=== PATIENT | female | born 1940 | race Caucasian/White ===

== ENCOUNTER 2016-06-13 09:12 | Emergency (ER) | payer MEDICARE, BC ==
[2016-06-13 09:51] VITALS: BP 131/67
--- NOTE | 2016-06-13 10:04 | UC ---
Complaint Female HPI - HPI Summary HPI Summary: UTI symptoms for 3d. Dysuria, urgency, frequency. No fever or vomiting, no kidney pain. Getting a lot of UTIs in past years, 2 or 3 a year. - History Of Current Complaint Chief Complaint: UCGU Stated Complaint: URINARY COMPLAINT Time Seen by Provider: 06/13/16 09:50 Hx Obtained From: Patient Onset/Duration: Gradual Onset, Lasting Days - 3 Timing: Constant Severity Initially: Mild Severity Currently: Mild Character: Dull, Cramping Associated Signs And Symptoms: Positive: Negative. Negative: Fever, Back Pain, Vaginal Bleeding/Discharge, Vaginal Discharge, Nausea, Vomiting(# Of Episodes =) , Genital Swelling, Genital Blisters - Risk Factors Ovarian Torsion Risk Factor: Negative - Allergies/Home Medications Allergies/Adverse Reactions: Allergies Allergy/AdvReac Type Severity Reaction Status Date / Time Morphine AdvReac Dizziness Verified 06/13/16 09:37 and Nausea environmental Allergy Congestion Uncoded 06/13/16 09:37 Home Medications: Home Medications Ibuprofen TAB* [Motrin TAB* 600 MG] 600 mg PO Q6H PRN 06/13/16 [History Confirmed 06/13/16] PMH/Surg Hx/FS Hx/Imm Hx Cardiovascular History Of: Reports: Cardiac Disorders - A. 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", Hypertension - Surgical History Surgical History: Yes Surgery Procedure, Year, and Place: Right Shoulder Partial Replacement, 05/29/16 , [place]; Right Rotator Cuff, 01/10/16, [place]; Right Ankle Infections s/p Fusion, 2014, [place]; Left Breast Biopsy, 2013, [place]; Left Carpal Tunnel, ~2011, [place]; Left Bunionectomy with other Metatarsal Involvement; Bilateral TKA: C-Sections; T&A - Family History Known Family History: Positive: Cardiac Disease, Other - OA - Social History Occupation: Retired Lives: With Family Alcohol Use: None Substance Use Type: None Smoking Status (MU): Never Smoked Tobacco - Immunization History Most Recent Influenza Vaccination: "I have never had a flu shot." Most Recent Tetanus Shot: ~2012 Most Recent Pneumonia Vaccination: Fall 2014 Review of Systems Constitutional: Negative Skin: Negative Eyes: Negative ENT: Negative Respiratory: Negative Cardiovascular: Negative Gastrointestinal: Negative Genitourinary: Dysuria, Frequency, Urgency Motor: Negative Neurovascular: Negative Musculoskeletal: Negative Neurological: Negative Psychological: Negative All Other Systems Reviewed And Are Negative: Yes Physical Exam Triage Information Reviewed: Yes Appearance: Well-Appearing, No Pain Distress, Well-Nourished Vital Signs: Initial Vital Signs Temp 98.7 F 06/13/16 09:35 Pulse 90 06/13/16 09:35 Resp 16 06/13/16 09:35 BP 131/67 06/13/16 09:35 Pulse Ox 99 06/13/16 09:35 Vital Signs Reviewed: Yes Eye Exam: Normal Neck exam: Normal Respiratory Exam: Normal Cardiovascular Exam: Normal Abdomen Description: Positive: Other: - suprapubic tenderness Musculoskeletal Exam: Normal Neurological Exam: Normal Psychological Exam: Normal Skin Exam: Normal Diagnostics - Laboratory Diagnostic Studies Completed/Ordered: U/A dip shows markers for infection Complaint Female Dx - Differential Dx/Diagnosis Provider Diagnoses: UTI Discharge - Discharge Plan Condition: Stable Disposition: HOME Prescriptions: Cephalexin CAP* [Keflex CAP*] 500 mg PO TID #21 cap Patient Education Materials: Urinary Tract Infection in Women (ED) Referrals: Nick Morel MD [Primary Care Provider] - Additional Instructions: Ask your BEHAVIORAL HEALTH AIDE or primary care doctor about the possibility of topical estrogen cream around the urethra as a way to avoid urinary tract infections. The culture results will be available in 2-3 days
== END 2016-06-13 10:40 | disposition home or self-care (01) ==
LOC: UCCORT 09:12
DX: N39.0 Urinary tract infection, site not specified (principal); Z87.440 Personal history of urinary (tract) infections; Z88.5 Allergy status to narcotic agent
CPT/HCPCS: 87077; 87086; 87186; 99212; G0463

== ENCOUNTER 2018-01-07 09:47 | Emergency (ER) | payer MEDICARE, BC ==
--- OUTSIDE RECORDS SUMMARY | 2018-01-07 10:01 | XMS REPORT ---
:1940 External Reference #:[id number] Author Organization Nick Beck M.D. 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 Active Onset: 01/05/2015 Infection of foot Nick Beck M.D. Active Onset: 05/10/2016 Hyperlipidemia Nick Beck M.D. Active Family History Date Family Member(s) Problem(s) Comments Father Coronary Thrombosis age 57 1964 Mother Alzheimer's Disease at 1993 First Brother due to UTI () - Subsequent Bladder Cancer age 74 Second Brother due to Suicide () - age 1936 Social History Type Date Description Comments Marital Status Legal Status: Lives With Alone Work Status Retired 2011 ETOH Use Never used alcohol Smoking 02/20/2017 Patient has never smoked Recreational Drug Use Never Used Drugs Daily Caffeine Does Not Consume Caffeine Allergies, Adverse Reactions, Alerts Date Description Reaction Status Severity Comments 05/10/2016 Morphine active nausea and "spacey" Medications Medication Date Status Form Strength Qnty SIG Indications Ordering Provider Xarelto 05/10 Active Tablets 20mg 30tab 1 by mouth I48.2 Nick s every day Castellan os MSteve Atorvastatin 05/10 Active Tablets 10mg 30tab 1 by mouth E78.5 Nick s every day Castellan os, MAditiD. Azelastine HCL 05/10 Active Solution 0.05% (Ophthalmic) Castellan osBubba Amlodipine Besylate 01/05 Active Tablets 2.5mg 90tab 1 by mouth s every day Castellan osBubba Calcium 600 + D 01/05 Active Tablets 600-200mg 270ta 1 daily -Unit bs Castellajoya osBubba Hydrochlorothiazide 01/05 Active Tablets 12.5mg 30tab 1 by mouth s every day Castellan osBubba Multi Vitamin Daily 01/05 Active Tablets 1 by mouth every day Castellan osBubba Ramipril 01/05 Active Capsules 5mg 60cap take 1 s capsule by Castellan mouth once os, M.D. a day Cranberry Extract 01/05 Active Tablets 250mg 1 po qd Castellan osBubba Levocetirizine 12/08 Active Tablets 5mg 90tab Take 1 Dihydrochlor s Tablet By Castellan Mouth os, M.DAditi Every Evening Ibuprofen 00/00 Active Tablets 600mg Camila [place] /0000 Enoxaparin Sodium 02/20 Hx Solution 100mg/ml 2ml 1 I48.2 injection Castellan - daily os, M.D. 03/13 starting days before surgery Optivar 01/03 Hx Solution 0.05% 6unit One Drop s Twice A Castellan - Day os, M.D. 05/10 Azelastine HCL 01/05 Hx Solution 0.05% 1 gtt/ (Ophthalmic) ocularly Castellan - ou bid os, M.D. 01/03 Gabapentin 01/05 Hx Capsules 300mg 90cap 1 by mouth M25.571 s one time a Castellan - day os, M.DAditi 05/10 Magnesium Oxide 01/05 Hx Tablets 400(241.3 60tab take one Mg) mg s tablet by Castellan - mouth os, M.DAditi 05/10 twice day Metronidazole 01/05 Hx Tablets 500mg 30tab 1 tab by s mouth Castellan - three os, M.DAditi 03/09 times a day [place] 01/05 Hx Tablets 5-325mg one Q 6 hrs prn Castellan - os, M.DAditi 03/09 Simvastatin 01/05 Hx Tablets 40mg 30tab 1 by mouth s every day Castellan - os, M.DAditi 05/10 Warfarin Sodium 01/05 Hx Tablets 5mg 30tab 1 by mouth s every day Castellan - as os, M.DAditi 05/10 per lab values Ventolin HFA 01/05 Hx Aerosol 108(90Bas 1unit 2 puffs e) s every 4 Castellan - mcg/Act hours as os, Bubba 05/10 Doxycycline 100 MGM 01/05 Hx Nick IV bid Castellan - osBubba 03/09 Cipro 750 MGM PO 01/05 Hx 1 po bid Nick bid Castellan - osBubba 03/09 Vesicare 10/19 Hx Tablets 5mg 60tab Take 1 s Tablet By Castellan - Mouth os, M.DAditi 03/13 Vital Signs Date Vital Result Comment 12/09/2017 Weight 164.00 lb BP Systolic 104 mmHg BP Diastolic 62 mmHg 09/11/2017 Weight 164.00 lb BP Systolic 120 mmHg BP Diastolic 62 mmHg 06/13/2017 Weight 160.00 lb BP Systolic 120 mmHg BP Diastolic 70 mmHg 03/13/2017 Weight 161.00 lb BP Systolic 124 mmHg BP Diastolic 72 mmHg 02/20/2017 Weight 165.00 lb 05/10/2016 Weight 159.50 lb BP Systolic 126 mmHg BP Diastolic 60 mmHg Height 62.75 inches 5'2.75" Heart Rate 84 /min Respiratory Rate 16 /min BMI (Body Mass Index) 28.5 kg/m2 02/09/2016 Weight 156.00 lb BP Systolic 130 mmHg BP Diastolic 70 mmHg 06/09/2015 Weight 152.50 lb BP Systolic 126 mmHg BP Diastolic 70 mmHg 04/04/2015 Weight 151.00 lb BP Systolic 110 mmHg BP Diastolic 70 mmHg 03/09/2015 BP Systolic 116 mmHg BP Diastolic 62 mmHg 03/04/2015 BP Systolic 100 mmHg BP Diastolic 60 mmHg 02/23/2015 BP Systolic 130 mmHg BP Diastolic 70 mmHg 08/11/2014 Weight 168.00 lb BP Systolic 120 mmHg BP Diastolic 70 mmHg Height 68 inches 5'8" Heart Rate 64 /min Body Temperature 98.8 F Respiratory Rate 12 /min BMI (Body Mass Index) 25.5 kg/m2 Results Test Date Test Result H/L Range Note Routine Culture W/ Gram 03/05/2017 Gram Stain RARE WHITE BLOOD <SEE 1, 2 Stain NOTE> Gram Stain NO ORGANISMS SEE <SEE NOTE> 1, 3 Aerobic Culture NO GROWTH: FINAL <SEE NOTE> 1, 4 Xray 05/16/2016 Chest Xray PA and Lat <pending> Comprehensive Metabolic Panel 05/11/2016 Glucose 89 mg/dL 74-106 5 BUN 16 mg/dL 7-18 5 Creatinine 1.0 mg/dL 0.6-1.3 5 Glom Filtration Rate, Estimate 58 mL/min >60 5 If >60 mL/min >60 5, 6 BUN/Creat 16.0 ratio 5 Sodium 141 mmol/L 136-145 5 Potassium 4.1 mmol/L 3.5-5.1 5 Chloride 105 mmol/L 98-107 5 Carbon Dioxide 31 mmol/L 21-32 5 Anion Gap 5 mEq/L Low 8-16 5 Calcium 8.9 mg/dL 8.5-10.1 5 Total Protein 6.7 g/dL 6.4-8.2 5 Albumin 3.3 g/dL Low 3.4-5.0 5 Globulin 3.4 g/dL 1.9-4.3 5 Alb/Glob 1.0 ratio 5 Bilirubin,Total 0.4 mg/dL 0.2-1.0 5 Sgot/Ast 21 U/L 15-37 5 SGPT/Alt 19 U/L 12-78 5 Alkaline Phosphatase 97 U/L 45-117 5 LDL Cholesterol Profile 05/11/2016 Cholesterol 177 mg/dL <200 5, 7 Triglycerides 92 mg/dL <150 5, 8 HDL Cholesterol 78 mg/dL >40 5, 9 LDL-Cholesterol 81 mg/dL < 100 5, 10 CBS W/Automated Diff 05/11/2016 White Blood Count 8.1 K/uL 3.1-10.7 5 Red Blood Count 3.96 M/uL 3.90-5.40 5 Hemoglobin 12.0 gm/dL 11.6-15.8 5 Hematocrit 36.8 % 36.0-46.1 5 Mean Cell Volume 92.9 fl 80.9-99.0 5 Mean Corpuscular HGB 30.3 pg 25.9-32.7 5 Mean Corpuscular HGB Conc 32.6 g/dL 30.8-34.3 5 Platelet Count 333 K/uL 155-360 5 Red Cell Distri Width SD 45.3 fl 3-47 5 Red Cell Distri Width %CV 13.7 % 11.7-14.4 5 Mean Platelet Volume 10.5 fL 8.9-12.4 5 Neut% 70.7 % 40.4-72.8 5 Lymph % 14.2 % Low 17.0-46.1 5 [place] % 8.3 % 4.3-13.2 5 Eo% 6.4 % 0.0-6.6 5 Bas% 0.4 % 0.0-1.1 5 Neut# 5.73 K/uL 1.8-7.0 5 Lymph # 1.15 K/uL Low 1.8-7.0 5 [place] # 0.67 K/uL 0.3-0.9 5 Eos # 0.52 K/uL High 0.0-0.5 5 Baso # 0.03 K/uL 0.0-0.1 5 Protime 03/02/2015 Protime 25.5 seconds High 12.0-14.4 Inr 2.3 High 0.9-1.1 11 Protime 02/28/2015 Protime 23.1 seconds High 12.0-14.4 Inr 2.0 High 0.9-1.1 12 Laboratory test finding 02/28/2015 Sedimentation Rate 26 mm/hr 0-30 Comprehensive Metabolic Panel 02/28/2015 Glucose 92 mg/dL 74-106 BUN 13 mg/dL 7-18 Creatinine 1.0 mg/dL 0.6-1.3 Glom Filtration Rate, Estimate 58 mL/min >60 If >60 mL/min >60 13 BUN/Creat 13.0 ratio Sodium 137 mmol/L 136-145 Potassium 3.6 mmol/L 3.5-5.1 Chloride 101 mmol/L 98-107 Carbon Dioxide 31 mmol/L 21-32 Anion Gap 5 mEq/L Low 8-16 Calcium 9.3 mg/dL 8.5-10.1 Total Protein 6.9 g/dL 6.4-8.2 Albumin 3.3 g/dL Low 3.4-5.0 Globulin 3.6 g/dL 1.9-4.3 Alb/Glob 0.9 ratio Bilirubin,Total 0.3 mg/dL 0.2-1.0 Sgot/Ast 22 U/L 15-37 SGPT/Alt 26 U/L 12-78 Alkaline Phosphatase 94 U/L 45-117 Laboratory test finding 02/28/2015 C-Reactive Protein,Quant < 2.9 mg/L < 3.0 CBS W/Automated Diff 02/28/2015 White Blood Count 6.7 K/uL 3.1-10.7 Red Blood Count 3.94 M/uL 3.90-5.40 Hemoglobin 12.4 gm/dL 11.6-15.8 Hematocrit 37.6 % 36.0-46.1 Mean Cell Volume 95.4 fl 80.9-99.0 Mean Corpuscular HGB 31.5 pg 25.9-32.7 Mean Corpuscular HGB Conc 33.0 g/dL 30.8-34.3 Platelet Count 470 K/uL High 155-360 Red Cell Distri Width SD 51.8 fl High 3-47 Red Cell Distri Width %CV 15.3 % High 11.7-14.4 Mean Platelet Volume 11.2 fL 8.9-12.4 Neut% 68.7 % 40.4-72.8 Lymph % 17.7 % 17.0-46.1 [place] % 8.5 % 4.3-13.2 Eo% 4.8 % 0.0-6.6 Bas% 0.3 % 0.0-1.1 Neut# 4.62 K/uL 1.0-7.0 Lymph # 1.19 K/uL Low 1.8-7.0 [place] # 0.57 K/uL 0.3-0.9 Eos # 0.32 K/uL 0.0-0.5 Baso # 0.02 K/uL 0.0-0.1 Protime 02/25/2015 Protime 29.2 seconds High 12.0-14.4 Inr 2.7 High 0.9-1.1 14 Protime 02/24/2015 Protime 35.7 seconds High 12.0-14.4 Inr 3.5 High 0.9-1.1 15 Protime 02/23/2015 Protime 41.0 seconds High 12.0-14.4 Inr 4.2 High 0.9-1.1 16 Comprehensive Metabolic Panel 02/21/2015 Glucose 85 mg/dL 74-106 BUN 13 mg/dL 7-18 Creatinine 1.1 mg/dL 0.6-1.3 Glom Filtration Rate, Estimate 52 mL/min >60 If >60 mL/min >60 17 BUN/Creat 11.8 ratio Sodium 138 mmol/L 136-145 Potassium 3.8 mmol/L 3.5-5.1 Chloride 101 mmol/L 98-107 Carbon Dioxide 31 mmol/L 21-32 Anion Gap 6 mEq/L Low 8-16 Calcium 9.1 mg/dL 8.5-10.1 Total Protein 6.9 g/dL 6.4-8.2 Albumin 3.4 g/dL 3.4-5.0 Globulin 3.5 g/dL 1.9-4.3 Alb/Glob 1.0 ratio Bilirubin,Total 0.2 mg/dL 0.2-1.0 Sgot/Ast 25 U/L 15-37 SGPT/Alt 24 U/L 12-78 Alkaline Phosphatase 99 U/L 45-117 Laboratory test finding 02/21/2015 C-Reactive Protein,Quant 7.2 mg/L < 3.0 Sedimentation Rate 45 mm/hr High 0-30 Protime 02/21/2015 Protime 55.6 seconds High 12.0-14.4 Inr 6.3 High 0.9-1.1 18 Protime 02/17/2015 Protime 31.4 seconds High 12.0-14.4 Inr 3.0 High 0.9-1.1 19 Protime 02/11/2015 Protime 14.7 seconds 12.1-14.9 Inr 1.1 0.9-1.1 20 Comprehensive Metabolic Panel 01/10/2015 Glucose 128 mg/dL High 74-106 BUN 16 mg/dL 7-18 Creatinine 1.1 mg/dL 0.6-1.3 Glom Filtration Rate, Estimate 52 mL/min >60 If >60 mL/min >60 21 BUN/Creat 14.5 ratio Sodium 135 mmol/L Low 136-145 Potassium 3.8 mmol/L 3.5-5.1 Chloride 100 mmol/L 98-107 Carbon Dioxide 27 mmol/L 21-32 Anion Gap 8 mEq/L 8-16 Calcium 9.3 mg/dL 8.5-10.1 Total Protein 6.2 g/dL Low 6.4-8.2 Albumin 2.9 g/dL Low 3.4-5.0 Globulin 3.3 g/dL 1.9-4.3 Alb/Glob 0.9 ratio Bilirubin,Total 0.5 mg/dL 0.2-1.0 Sgot/Ast 17 U/L 15-37 SGPT/Alt 21 U/L 12-78 Alkaline Phosphatase 80 U/L 45-117 Laboratory test finding 01/10/2015 C-Reactive Protein,Quant 3.4 mg/L < 3.0 22 CBS W/Automated Diff 01/10/2015 White Blood Count 10.2 K/uL 3.1-10.7 Red Blood Count 4.15 M/uL 3.90-5.40 Hemoglobin 12.4 gm/dL 11.6-15.8 Hematocrit 37.9 % 36.0-46.1 Mean Cell Volume 91.3 fl 80.9-99.0 Mean Corpuscular HGB 29.9 pg 25.9-32.7 Mean Corpuscular HGB Conc 32.7 g/dL 30.8-34.3 Platelet Count 579 K/uL High 155-360 Red Cell Distri Width SD 56.6 fl High 3-47 Red Cell Distri Width %CV 17.3 % High 11.7-14.4 Mean Platelet Volume 10.7 fL 8.9-12.4 Neut% 80.9 % High 40.4-72.8 Lymph % 7.9 % Low 17.0-46.1 [place] % 7.9 % 4.3-13.2 Eo% 3.0 % 0.0-6.6 Bas% 0.3 % 0.0-1.1 Neut# 8.24 K/uL High 1.0-7.0 Lymph # 0.80 K/uL Low 1.8-7.0 [place] # 0.81 K/uL 0.3-0.9 Eos # 0.31 K/uL 0.0-0.5 Baso # 0.03 K/uL 0.0-0.1 Laboratory test finding 01/10/2015 Sedimentation Rate 36 mm/hr High 0-30 23 Protime 01/10/2015 Protime 24.9 seconds High 12.1-14.9 Inr 2.2 High 0.9-1.1 24 Basic Metabolic Panel 08/21/2014 Glucose 84 mg/dL 74-106 BUN 15 mg/dL 7-18 Creatinine 1.2 mg/dL 0.6-1.3 Glom Filtration Rate, Estimate 47 mL/min >60 If 57 mL/min >60 25 BUN/Creat 12.5 ratio Sodium 141 mmol/L 136-145 Potassium 3.9 mmol/L 3.5-5.1 Chloride 107 mmol/L 98-107 Carbon Dioxide 28 mmol/L 21-32 Anion Gap 6 mEq/L Low 8-16 Calcium 8.6 mg/dL 8.5-10.1 1 BONE BLOCK RIGHT SHOULDER [id number] 2 RARE WHITE BLOOD CELLS 3 NO ORGANISMS SEEN 4 NO GROWTH: FINAL REPORT 5 I48.2 E78.5 6 Note: Persistent reduction for 3 months or more in an eGFR <60 mL/min/1.73 m2 defines CKD. Patients with eGFR values >/=60 mL/min/1.73 m2 may also have CKD if evidence of persistent proteinuria is present. The original MDRD equation for estimated GFR is not valid for patients less than 18 years of age. Additional information may be found at www.kdoqi.org. 7 Reference Guidelines*: Desirable: ........... < 200 mg/dL Borderline High: ..... 200-239 mg/dL High: ................ >=240 mg/dL * The National Cholesterol Education Program (NCEP) 8 Reference Guidelines*: Normal: ............. < 150 mg/dL Borderline High: .... 150-199 mg/dL High: ............... 200-499 mg/dL Very High: .......... > 500 mg/dL * Source: National Cholesterol Education Program (NCEP) 9 Reference Guidelines*: Low HDL: ..... < 40 mg/dL Normal: ..... 40-60 mg/dL Desirable: ... > 60 mg/dL *The National Cholesterol Education Program(NCEP) 10 Reference Guidelines*: Optimal:........... <100 mg/dL Near Optimal....... 100-129 mg/dL Borderline High.... 130-159 mg/dL High............... 160-189 mg/dL Very High.......... >=190 mg/dL * Source: National Cholesterol Education Program (NCEP) 11 THERAPEUTIC INR RANGE: 2.0 - 3.0 DVT, Pulmonary embolus, prophylaxis against venous thrombosis or systemic embolization in high risk patients. 2.5 - 3.5 Mechanical heart valves 12 THERAPEUTIC INR RANGE: 2.0 - 3.0 DVT, Pulmonary embolus, prophylaxis against venous thrombosis or systemic embolization in high risk patients. 2.5 - 3.5 Mechanical heart valves 13 Note: Persistent reduction for 3 months or more in an eGFR <60 mL/min/1.73 m2 defines CKD. Patients with eGFR values >/=60 mL/min/1.73 m2 may also have CKD if evidence of persistent proteinuria is present. The original MDRD equation for estimated GFR is not valid for patients less than 18 years of age. Additional information may be found at www.kdoqi.org. 14 THERAPEUTIC INR RANGE: 2.0 - 3.0 DVT, Pulmonary embolus, prophylaxis against venous thrombosis or systemic embolization in high risk patients. 2.5 - 3.5 Mechanical heart valves 15 THERAPEUTIC INR RANGE: 2.0 - 3.0 DVT, Pulmonary embolus, prophylaxis against venous thrombosis or systemic embolization in high risk patients. 2.5 - 3.5 Mechanical heart valves 16 THERAPEUTIC INR RANGE: 2.0 - 3.0 DVT, Pulmonary embolus, prophylaxis against venous thrombosis or systemic embolization in high risk patients. 2.5 - 3.5 Mechanical heart valves 17 Note: Persistent reduction for 3 months or more in an eGFR <60 mL/min/1.73 m2 defines CKD. Patients with eGFR values >/=60 mL/min/1.73 m2 may also have CKD if evidence of persistent proteinuria is present. The original MDRD equation for estimated GFR is not valid for patients less than 18 years of age. Additional information may be found at www.kdoqi.org. 18 THERAPEUTIC INR RANGE: 2.0 - 3.0 DVT, Pulmonary embolus, prophylaxis against venous thrombosis or systemic embolization in high risk patients. 2.5 - 3.5 Mechanical heart valves 19 THERAPEUTIC INR RANGE: 2.0 - 3.0 DVT, Pulmonary embolus, prophylaxis against venous thrombosis or systemic embolization in high risk patients. 2.5 - 3.5 Mechanical heart valves 20 THERAPEUTIC INR RANGE: 2.0 - 3.0 DVT, Pulmonary embolus, prophylaxis against venous thrombosis or systemic embolization in high risk patients. 2.5 - 3.5 Mechanical heart valves 21 Note: Persistent reduction for 3 months or more in an eGFR <60 mL/min/1.73 m2 defines CKD. Patients with eGFR values >/=60 mL/min/1.73 m2 may also have CKD if evidence of persistent proteinuria is present. The original MDRD equation for estimated GFR is not valid for patients less than 18 years of age. Additional information may be found at www.kdoqi.org. 22 [facility] FAX [phone] BECK [phone] RAJAN KNAPP [phone] 23 [facility] FAX [phone] BECK [phone] RAJAN KNAPP [phone] 24 THERAPEUTIC INR RANGE: 2.0 - 3.0 DVT, Pulmonary embolus, prophylaxis against venous thrombosis or systemic embolization in high risk patients. 2.5 - 3.5 Mechanical heart valves 25 Note: Persistent reduction for 3 months or more in an eGFR <60 mL/min/1.73 m2 defines CKD. Patients with eGFR values >/=60 mL/min/1.73 m2 may also have CKD if evidence of persistent proteinuria is present. The original MDRD equation for estimated GFR is not valid for patients less than 18 years of age. Additional information may be found at www.kdoqi.org. Procedures Date CPT Code Description Status 05/10/2016 63976 EKG Completed 08/11/2014 38376 EKG Completed 05/27/2014 Colonoscopy Completed Encounters Type Date Location Provider CPT E/M Dx Office Visit 12/09/2017 10:45a Main Office Nick Beck M.D. 23253 M75.121 Office Visit 09/11/2017 10:30a Main Office Nick Bcek M.D. 34722 M75.121 Office Visit 06/13/2017 10:45a Main Office Nick Beck M.D. 03375 M75.121 Office Visit 03/13/2017 9:30a Main Office Nick Beck M.D. 20100 M75.121 Office Visit 02/20/2017 11:00a Main Office Nick Beck M.D. 11337 I48.2 I48.2 E78.5 E78.5 Z01.818 M75.121 Office Visit 05/10/2016 9:30a Main Office Nick Beck M.D. 50331 M75.101 I48.2 E78.5 Z01.818 Office Visit 02/09/2016 8:45a Main Office Nick Beck M.D. 29798 M75.101 Office Visit 04/04/2015 3:00p Main Office Nick Beck M.D. 12071 M25.571 S93.401D Office Visit 03/09/2015 10:00a Main Office Nick Beck M.D. 06410 M25.571 S93.401D Office Visit 03/04/2015 10:15a Main Office Nick Beck M.D. 33991 I48.2 Office Visit 02/23/2015 1:30p Main Office Nick Beck M.D. 94495 S93.401D M25.571 Office Visit 08/11/2014 2:30p [place] [address] 719.47 794.31 v72.83 272.4 Plan of Care Future Appointment(s):03/11/2018 10:30 am - Nick Beck M.D. at [facility]/09/2017 - Nick Beck M.D.M75.121 Complete rotatr-cuff tear/ ruptr of r shoulder, not traumaFollow up:3 months
[2018-01-07 10:06] VITALS: BP 133/65
--- NOTE | 2018-01-07 10:22 | UC ---
Complaint Female HPI - HPI Summary HPI Summary: Pt presents with c/o sudden onset of frequency, urgency and dysuria X 2 day. Has hx of kidney stones and uti. - History Of Current Complaint Chief Complaint: UCGU Stated Complaint: URINARY Time Seen by Provider: 01/07/18 10:09 Hx Obtained From: Patient ?: No Onset/Duration: Sudden Onset, Lasting Days, Still Present Timing: Constant Severity Initially: Mild Severity Currently: Mild Pain Intensity: 4 Character: Dull, Burning Aggravating Factor(s): Urination Alleviating Factor(s): Nothing Associated Signs And Symptoms: Positive: Negative - Risk Factors Ectopic Risk Factor: Negative - Allergies/Home Medications Allergies/Adverse Reactions: Allergies Allergy/AdvReac Type Severity Reaction Status Date / Time morphine Allergy Dizziness Verified 01/07/18 10:01 environmental Allergy Congestion Uncoded 06/13/16 09:37 Home Medications: Home Medications Ferrous Sulfate TAB* 325 mg PO BID 01/07/18 [History Confirmed 01/07/18] Latanoprost/Pf [Latanoprost 0.005% Eye Drop] 1 drop OP BEDTIME 01/07/18 [ History Confirmed 01/07/18] LevoCETirizine TAB (NF) [Xyzal TAB (NF)] 5 mg PO QPM 01/07/18 [History Confirmed 01/07/18] PMH/Surg Hx/FS Hx/Imm Hx Previously Healthy: Yes Endocrine History: Dyslipidemia Cardiovascular History: Cardiac Disease, Hypertension - Surgical History Surgical History: Yes Surgery Procedure, Year, and Place: Right Shoulder Partial Replacement, 05/29/16 , [place]; Right Rotator Cuff, 01/10/16, [place]; Right Ankle Infections s/p Fusion, 2014, [place]; Left Breast Biopsy, 2013, [place]; Left Carpal Tunnel, ~2011, [place]; Left Bunionectomy with other Metatarsal Involvement; Bilateral TKA: C-Sections; T&A - Family History Known Family History: Positive: Cardiac Disease, Other - OA - Social History Occupation: Retired Lives: With Family Alcohol Use: None Substance Use Type: None Smoking Status (MU): Never Smoked Tobacco Have You Smoked in the Last Year: No - Immunization History Most Recent Influenza Vaccination: "I have never had a flu shot." Most Recent Tetanus Shot: ~2012 Most Recent Pneumonia Vaccination: Fall 2014 Review of Systems Constitutional: Negative Skin: Negative Eyes: Negative ENT: Negative Respiratory: Negative Cardiovascular: Negative Gastrointestinal: Negative Genitourinary: Dysuria, Frequency, Urgency Motor: Negative Neurovascular: Negative Musculoskeletal: Negative Neurological: Negative Psychological: Negative Is Patient Immunocompromised?: No All Other Systems Reviewed And Are Negative: Yes Physical Exam Triage Information Reviewed: Yes Appearance: Well-Appearing Vital Signs: Initial Vital Signs Temp 98.4 F 01/07/18 10:01 Pulse 91 01/07/18 10:01 Resp 17 01/07/18 10:01 BP 133/65 01/07/18 10:01 Pulse Ox 97 01/07/18 10:01 Vital Signs Reviewed: Yes Eye Exam: Normal ENT Exam: Normal Dental Exam: Normal Neck exam: Normal Respiratory Exam: Normal Cardiovascular Exam: Normal Abdominal Exam: Normal Abdomen Description: Positive: Nontender Musculoskeletal Exam: Normal Neurological Exam: Normal Psychological Exam: Normal Skin Exam: Normal Complaint Female Dx - Differential Dx/Diagnosis Differential Diagnosis/HQI/PQRI: Ureteral Stone, Urinary Tract Infection Provider Diagnoses: UTI Discharge - Sign-Out/Discharge Documenting (check all that apply): Patient Departure - Discharge Plan Condition: Stable Disposition: HOME Prescriptions: Cephalexin CAP* [Keflex 500 CAP*] 500 mg PO Q8H #21 cap Phenazopyridine TAB* [Pyridium 100 mg TAB*] 100 mg PO Q8H #6 tab Patient Education Materials: Urinary Tract Infection in Women (ED) Referrals: Nick Morel MD [Primary Care Provider] - If Needed - Billing Disposition and Condition Condition: STABLE Disposition: Home
== END 2018-01-07 10:28 | disposition home or self-care (01) ==
LOC: UCCORT 09:47
DX: N39.0 Urinary tract infection, site not specified (principal); B96.20 Unspecified Escherichia coli [E. coli] as the cause of diseases classified elsewhere; Z88.5 Allergy status to narcotic agent; I10 Essential (primary) hypertension
CPT/HCPCS: 81003; 87077; 87086; 87186; 99212; G0463

== ENCOUNTER 2018-01-19 14:29 | Emergency (ER) | payer MEDICARE, BC ==
[2018-01-19 14:50] VITALS: BP 127/49
--- NOTE | 2018-01-19 15:17 | UC ---
Complaint Female HPI - HPI Summary HPI Summary: 77 year old female presents with 1 day history of dysuria, frequency, and urgency. Associated with some cloudy and foul smelling urine. she was seen at this facility on 01/07/2018 for similar symptoms. Treated for UTI with 7 day course of Keflex. Urine culture grew out e. coli >100,000 cfu that was sensitive to all antibiotics. Patient states symptoms resolved after treatment. Denies fever, chills, back/flank pain, abdominal pain, N/V, hematuria, or vaginal discharge. - History Of Current Complaint Chief Complaint: UCGU Stated Complaint: URINARY COMPLAINT Time Seen by Provider: 01/19/18 14:52 Hx Obtained From: Patient ?: No Onset/Duration: Gradual Onset Severity Initially: Mild Severity Currently: Mild Pain Intensity: 3 Character: Burning Aggravating Factor(s): Urination Alleviating Factor(s): Nothing Associated Signs And Symptoms: Negative: Fever, Back Pain, Vaginal Bleeding/ Discharge, Nausea, Vomiting(# Of Episodes =), Genital Swelling, Genital Blisters - Allergies/Home Medications Allergies/Adverse Reactions: Allergies Allergy/AdvReac Type Severity Reaction Status Date / Time morphine AdvReac Dizziness Verified 01/19/18 14:53 PMH/Surg Hx/FS Hx/Imm Hx Previously Healthy: Yes Endocrine History: Dyslipidemia Cardiovascular History: Hypertension GI/ History: Kidney Stones - Surgical History Surgical History: Yes Surgery Procedure, Year, and Place: Right Shoulder Partial Replacement, 05/29/16 , [place]; Right Rotator Cuff, 01/10/16, [place]; Right Ankle Infections s/p Fusion, 2014, [place]; Left Breast Biopsy, 2013, [place]; Left Carpal Tunnel, ~2011, [place]; Left Bunionectomy with other Metatarsal Involvement; Bilateral TKA: C-Sections; T&A - Family History Known Family History: Positive: Cardiac Disease, Other - OA - Social History Occupation: Retired Lives: Alone Alcohol Use: None Substance Use Type: None Smoking Status (MU): Never Smoked Tobacco Have You Smoked in the Last Year: No - Immunization History Most Recent Influenza Vaccination: "I have never had a flu shot." Most Recent Tetanus Shot: ~2012 Most Recent Pneumonia Vaccination: Fall 2014 Review of Systems Constitutional: Negative Skin: Negative Gastrointestinal: Negative Genitourinary: Dysuria, Frequency, Urgency Is Patient Immunocompromised?: No All Other Systems Reviewed And Are Negative: Yes Physical Exam Triage Information Reviewed: Yes Appearance: Well-Appearing, No Pain Distress, Well-Nourished Vital Signs: Initial Vital Signs Temp 98 F 01/19/18 14:43 Pulse 75 01/19/18 14:43 Resp 16 01/19/18 14:43 BP 127/49 01/19/18 14:43 Pulse Ox 95 01/19/18 14:43 Vital Signs Reviewed: Yes Respiratory: Positive: Lungs clear, Normal breath sounds, No respiratory distress Cardiovascular: Positive: RRR, No Murmur Abdomen Description: Positive: Nontender, No Organomegaly, Soft. Negative: CVA Tenderness (R), CVA Tenderness (L) Bowel Sounds: Positive: Present Neurological: Positive: Alert Skin Exam: Normal Diagnostics - Laboratory Diagnostic Studies Completed/Ordered: POC UA 1+ protein, 2 + blood, + nitrite, and 3+ leukocyte esterase Complaint Female Dx - Course Course Of Treatment: 77 year old female with reoccurrence of UTI symptoms after completing 7 day course of Keflex. POC UA consistent with UTI. Will switch her to nitrofurantoin BID x 5 days. Repeat urine culture. She is to follow up with PCP in 7 days. - Differential Dx/Diagnosis Provider Diagnoses: acute urinary cystitis Discharge - Sign-Out/Discharge Documenting (check all that apply): Patient Departure All imaging exams completed and their final reports reviewed: No Studies - Discharge Plan Condition: Stable Disposition: HOME Prescriptions: Nitrofurantoin Monohyd/M-Cryst [Macrobid 100 mg Capsule] 100 mg PO BID #10 cap Patient Education Materials: Urinary Tract Infection in Women (ED) Referrals: Nick Morel MD [Primary Care Provider] - 7 Days () Additional Instructions: The urine test in the clinic today was suggestive of a reoccurrence of the urinary tract infection. We will treat you with a different type of antibiotic to see if this clears the infection. We will also repeat the urine culture to ensure that the antibiotic is appropriate. Start nitrofurantoin 1 tab twice daily for 5 days. You may continue to use the phenazopyridine (Pyridium, Azo) according to directions for the discomfort however do not use for more than 2 days as this may mask symptoms of an untreated or undertreated infection. Drink plenty of fluids. Follow up with your primary care provider in 1 week for recheck of symptoms. Seem immediate medical attention if you develop fever greater than 100.5 F, have severe abdominal pain, persistent vomiting, or any worsening of symptoms. - Billing Disposition and Condition Condition: STABLE Disposition: Home
== END 2018-01-19 16:26 | disposition home or self-care (01) ==
LOC: UCCORT 14:29
DX: N30.00 Acute cystitis without hematuria (principal); Z88.5 Allergy status to narcotic agent
CPT/HCPCS: 81003; 87077; 87086; 87186; 99212; G0463

== ENCOUNTER 2018-07-09 07:27 | Inpatient (IN) | payer BC, MEDICARE, OTHER ==
--- NOTE | 2018-07-04 19:28 | HP ---
AMENDED REPORT NOW INCLUDES COSIGNER DESIGNATION PREOPERATIVE HISTORY AND PHYSICAL: DATE OF ADMISSION/SURGERY: 07/09/18 DATE OF OFFICE VISIT: 06/27/18 ATTENDING SURGEON: Dr. Kristin Pastor.* (DICTATED BY MILDRED LEON) PROCEDURE: Revision right total shoulder reverse. CHIEF COMPLAINT: Right shoulder pain. HISTORY OF PRESENT ILLNESS: Maribell is a 77-year-old female, who presents to the clinic for right shoulder pain. 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 She has failed conservative measures and therefore agreed to undergo a revision right total shoulder reverse with Dr. Pastor on 07/09/18. PAST MEDICAL HISTORY: Hypertension, AFib, high cholesterol, osteoarthritis, history of TIA, history of CVA, and allergic rhinitis. She also has a history of MRSA 15 years ago. PAST SURGICAL HISTORY: Right L5-S1 laminectomy, tonsillectomy, , L4- L5 back surgery, left carpal tunnel release, 4 prior shoulder surgeries, oophorectomy, tubal ligation, appendectomy, right ankle x5, a fem-pop bypass in her leg. The patient denies prior complications with anesthesia. MEDICATIONS: 1. Cyclobenzaprine 5 mg 1 by mouth at bedtime as needed. 2. Calcium/vitamin D 600/200 mg 1 daily. 3. Hydrochlorothiazide 12.5 mg 1 daily. 4. Ramipril 5 mg 1 by mouth once a day. 5. Hydrochlorothiazide 25 mg one-half tab daily. 6. Atorvastatin calcium 10 mg 1 daily. 7. VESIcare 5 mg 1 daily. 8. Xarelto 15 mg 1 every day. 9. Amlodipine 2.5 mg 1 daily. 10. Cranberry extract daily. 11. Multivitamin For Her daily. 12. Latanoprost 0.005% daily. 13. Azelastine 0.05% one drop each eye twice a day. 14. Ibuprofen 600 mg as needed for pain. ALLERGIES: MORPHINE. FAMILY HISTORY: Positive for cancer, hypertension, heart disease. SOCIAL HISTORY: She denies tobacco or alcohol use. She denies illegal drug use. She is right-hand dominant. REVIEW OF SYSTEMS: A 14-point review of systems was reviewed with the patient. Positive for current complaint, otherwise negative. She does have a positive history of MRSA 15 years ago. She denies history of DVT or PE. Denies fever, chills, chest pain, or shortness of breath. PHYSICAL EXAMINATION GENERAL: A 77-year-old, well-developed, well-nourished female, in no acute distress. VITAL SIGNS: Height 64, weight 166, pulse 67, blood pressure 132/70, respiratory rate 17, temperature 97.8, BMI 28.5. HEENT: Normocephalic, atraumatic. PERRLA. Throat clear. NECK: Supple. PULMONARY: Lungs are clear to auscultation bilaterally. No wheezing, rhonchi, or rales. CARDIO: Regular rate and rhythm. S1, S2. No murmurs, gallops, or rubs. No edema. ABDOMEN: Positive bowel sounds. Soft, nontender. NEURO: Alert and oriented x3. Cranial nerves grossly intact. MUSCULOSKELETAL: Right upper extremity: The skin is intact. She has a well- healed surgical incision with no warmth or erythema. Nontender to palpation. She has very limited range of motion. Forward flexion and abduction to about 20. Full range of motion of the elbow, wrist, and hand. +2 radial pulse. Sensation intact to light touch distally. DIAGNOSTIC STUDIES: CT of the right upper extremity revealed presence of hardware from a right total shoulder replacement with prosthetic loosening. ASSESSMENT AND PLAN: Maribell is a 77-year-old female, who presents to the clinic for followup of her right painful shoulder reverse arthroplasty. She has therefore agreed to undergo a revision right total shoulder reverse with Dr. Pastor on 07/09/18. Percocet will be used for postop pain management. She will follow up 10 to 14 days postop for followup and x-rays. MILDRED LEON [id number]/[facility] #: [id number] MTDD
[~2018-07-09 07:27] MED LIST: Buffered Lidocaine 1% SYRIN* 1 ML/SYRINGE INTRADERM ONE; Dexamethasone TAB* 4 MG PO ONE; DiMENhydriNATE IV* 50 MG/ML VIAL IV PUSH PRN; Famotidine IV* 10 MG/ML 2 ML (20 mg) IV ONE; HYDROmorphone INJ1* 1 MG/ML SYRINGE IV PRN; Lactated Ringers 1000 ML Bag* 1,000 ML IV SCH; Naloxone* 0.4 MG/ML 1 ML VIAL IV PRN; Ondansetron TAB* 4 MG PO ONE; PROCHLORPERAZINE INJ 5 MG/ML 2 ML VIAL IV PRN; Vancomycin(*) 1,250 MG in NS 0.9% 250 ML* 250 ML IVPB SCH; fentaNYL* 50 MCG/ML 2 ML VIAL (100 MCG VIAL) IV PRN; oxyCODONE/Acetamin 5/325 MG* TAB PO PRN
--- OUTSIDE RECORDS SUMMARY | 2018-07-09 07:32 | XMS REPORT | Continuity of Care Document ---
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 Unavailable Nick Morel MD Primary Care Physician Unavailable Payers Type Date Identification Numbers Payment Provider Subscriber Policy Number: [id number] Medicare Maribell Stiles PayID: [id number] [address] [place] [address] Policy Number: [id number] [facility] Maribell Stiles PayID: [id number] [address] [address] [place] [address] Effective: 2010 Policy Number: [id number] Special [employer] [address] Maribell Stiles Onset: 1998 Group Number: [id number] Group Name: [id number] [place] [address] PayID: [id number] Onset: 1998 Policy Number: [id number] [employer] Maribell Stiles Group Name: [id number] [address] PayID: [id number] [place] [address] Expires: 2010 Policy Number: [id number] [facility] Maribell Stiles Onset: 1998 PayID: [id number] [address] [facility] [address] [place] [address] Advance Directives Description No Information Available Problems Date Description Provider Status Onset: 12/31/2013 Screening for malignant neoplasm Chu Olguin Active of colon M.D. Onset: 08/10/2015 Shoulder joint pain Jordan Bishop M.D. Active Onset: 08/10/2015 Full thickness rotator cuff tear Jordan Bishop M.D. Active Onset: 01/20/2016 Knee joint effusion Jordan Bishop M.D. Active Onset: 01/20/2016 Poisoning by other synthetic Jordan Bishop M.D. 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 Onset: 10/15/2012 Arthralgia of the ankle and/or Mick Currie MD Active foot Onset: 05/18/2003 Enthesopathy of hip region Active Family History Date Family Member(s) Problem(s) Comments General Non Contributory Father Cornary Thrombosis : (age 59 Years) Father due to [place] Father due to corany embolisim () Mother CHF Mother due to Congestive Heart () Failure First Brother Cancer Social History Type Date Description Comments Sex Unknown Lives With Alone Home Environment Lives Alone Diet Patient follows no dietary restrictions 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 Tobacco Use Start: Unknown Never Smoked Cigarettes ETOH Use Denies alcohol use Tobacco Use Start: Unknown Patient has never smoked Recreational Drug Use Denies Drug Use Smoking Status Reviewed: 06/25/18 Patient has never smoked Allergies, Adverse Reactions, Alerts Date Description Reaction Status Severity Comments 04/16/2013 Morphine Active Medications Medication Date Status Form Strength Qnty SIG Indications Ordering Provider Hydrochlorothiazid Active Tablets 12.5mg 90tab 1 po qd Unknown s Multivitamins Active Capsules 90cap 1 by mouth Unknown /0000 s every day Cranberry Active Tablets 140mg po qd Unknown Ramipril Active Capsules 5mg 30cap 1 po qd Unknown / s Azelastine HCL Active Solution 0.05% 1 drop Unknown (Ophthalmic) / both eyes twice a day Levocetirizine Active Tablets 5mg 1 by mouth Unknown Dihydrochloride / every day Amlodipine Active Tablets 2.5mg 90tab 1 by mouth Alex Aguirreylate / s every day MD Hawa Atorvastatin Active Tablets 10mg 1 by mouth Unknown Calcium / every day Xarelto Active Tablets 20mg 1 by mouth Unknown / every day Ibuprofen Active Tablets 600mg 1 PO Q 6 Unknown / HRS prn Calcium + D3 Active Tablets 600-200mg 60tab 1 by mouth Unknown -Unit s every day Vesicare Active Tablets 5mg 1 by mouth Unknown / every day Cyclobenzaprine Active Tablets 10mg 1 by mouth Unknown HCL 0000 three times a day as needed muscle spasms Latanoprost Active Solution 0.005% 1 drop Unknown / each eye at night Oxycodone HCL 02/25 Hx Tablets 5mg 40tab 1-2 every Z96.611 Dario, s 4-6 hour Jordan, - as needed M.D. 07/17 pain /2017 Oxycodone HCL 05/17 Hx Tablets 10mg 40tab 1 by mouth M75.121 Dario, s every 4-6 Jordan, - hour as M.D. 06/06 needed postop pain Zofran Odt 01/11 Hx Tablets 4mg 30tab 1 sl every Dario Dispers s 6 hour as Jordan, - needed M.D. 02/07 Oxycodone HCL 01/01 Hx Tablets 10mg 40tab 1-2 by M75.121 Dario, s mouth Jordan, every 4-6 M.D. hour as needed postop pain No Active 04/16 Hx Unknown Medications /2012 - 04/16 Naproxen 04/16 Hx Tablets 375mg 60tab 1 po bid Arnaud s with food Wander Hatch MD, FACS 03/30 Naproxen 04/16 Hx Tablets 375mg 60tab Take 1 Laws s Tablet By Dalton Contreras, - Mouth , FACS 03/30 Twice Daily With Food Anexsia 04/04 Hx Tablets 5-500mg 40tab take 1 Rosey, s tablets po MD Mick - q 4hr prn 12/29 pain. Oxycodone/Acetamin 03/27 Hx Tablets 5-325mg 60tab 1 by mouth carson Lares s every 6 Dalton Contreras, - hours pain , FACS 08/09 Warfarin Sodium 03/27 Hx Tablets 1mg 20tab 3 pills, , s or as MD Mick - directed, 03/30 evening by mouth Nabumetone 06/13 Hx Tablets 750mg 60tab Take 2 [place], s Tablets By MD Mick - Mouth 03/30 Every After A Meal Nabumetone 06/04 Hx Tablets 750mg 60tab Take 2 [place], s Tablets By MD Mick - Mouth 03/30 Every After A Meal Nabumetone 06/04 Hx Tablets 750mg 60tab Take 2 [place], s Tablets By MD Mick - Mouth 03/30 Every After A Meal Simvastatin Hx Tablets 40mg 90tab 1 po qd Unknown / s - 01/01 Clopidogrel Hx Tablets 75mg 7tabs 1 po qd Unknown / - 12/29 Calcium Carbonate Hx Tablets 600mg po qd Unknown / Fiberchoice Hx Chewtabs daily Unknown Xyzal Hx Tablets 5mg 30tab Unknown / s - 12/29 Optivar Hx Solution 0.05% Unknown / - 03/30 Azelastine HCL Hx Solution 137mcg/Sp Unknown / ray - 12/29 Nitrofurantoin Hx Capsules 100mg po qd Unknown / Astrapro Hx Unknown / - 03/30 Vesicare Hx Tablets 5mg 30tab 1 po qd Unknown / s - 03/13 Refresh Optive 00 Hx Solution 0.5-1-0.5 q 3 hrs Unknown Advanced /0000 % - 06/06 Amlodipine Hx Tablets 2.5mg 1 by mouth Unknown Besylate /0000 every day Lactobacillus Hx Capsules 1 by mouth Unknown Extra Strength /0000 twice a day Magnesium Oxide Hx Tablets 400mg 1 by mouth Unknown /0000 every day Albuterol Sulfate Hx Nebulizer (2.5mg/3M nebulized Unknown /0000 L) 0.083% every 6 - hours as 05/17 needed /2015 Acetaminophen Hx Tablets 325mg i-ii by Unknown /0000 mouth every 4 hours as needed Warfarin Sodium Hx Tablets 5mg 1 by mouth Unknown /0000 every day Gabapentin Hx Capsules 300mg 1 by mouth Unknown /0000 Daily Lidoderm Hx Patches 5% on 12 hr. Unknown / off 12 hour. Artificial Tears Hx Solution 1-0.3% as needed Unknown / Oxycodone HCL Hx Tablets 10mg 1 every 4 Unknown /0000 h by mouth - as needed 02/07 pain /2016 Hydrocodone-Acetam 00 Hx Tablets 5-325mg Unknown inophen /0000 - 06/26 Ibuprofen Hx Tablets 600mg Unknown / - 09/26 Cyclobenzaprine Hx Tablets 10mg TK 1 T PO Unknown HCL /0000 Q 8 H prn - 09/26 Cephalexin / Hx Capsules 500mg Unknown / - 09/26 Hydrocodone-Acetam 0000 Hx Tablets 5-325mg Unknown inophen /0000 - 09/26 Oxycodone HCL Hx Tablets 10mg TK 1 T PO Unknown /0000 Q 4-6 - Hours prn 09/26 For Postop /2016 Pain. MDD 6 TS Hydroxychloroquine 00 Hx Tablets 200mg TK 1 T PO Unknown Sulfate /0000 bid - 09/26 Gabapentin Hx Capsules 300mg Unknown / - 09/26 [address] 40mg Unknown Sodium /0000 - 09/26 Nitrofurantoin Hx Capsules 100mg TK 1 C PO Unknown Monohydrate/Macroc /0000 bid For rystals - Urinary 09/26 Tract Infection Ondansetron 00/00 Hx Tablets 4mg Dis 1 T On Unknown /0000 Dispers The Tongue - Q 6 H prn 09/26 Phenazopyridine 00/00 Hx Tablets 100mg TK 1 T PO Unknown HCL /0000 tid - 09/26 Minocycline HCL 00/00 Hx Capsules 100mg TK 1 C PO Unknown /0000 D WF - 09/26 Ciprofloxacin HCL 00/00 Hx Tablets 250mg Unknown /0000 - 09/26 Warfarin Sodium 00/00 Hx Tablets 4mg TK 1 T PO Unknown /0000 qd - 09/26 Warfarin Sodium 00/00 Hx Tablets 5mg TK as Unknown /0000 Directed - 09/26 Simvastatin 00/00 Hx Tablets 80mg Unknown / - 09/26 Triamcinolone 00/ Hx Ointment 0.1% Jason To Unknown Acetonide /0000 Arms Once - Daily 09/26 Cyclobenzaprine 00/00 Hx Tablets 10mg TK 1 T PO Unknown HCL /0000 Q 8 H prn - 12/05 Cephalexin 00/ Hx Capsules 500mg Unknown /0000 - 10/01 Hydrocodone-Acetam 00/00 Hx Tablets 5-325mg Unknown inophen /0000 - 12/05 Oxycodone HCL 00/00 Hx Tablets 10mg Unknown /0000 - 12/05 Hydroxychloroquine 00/00 Hx Tablets 200mg TK 1 T PO Unknown Sulfate /0000 bid - 12/05 Gabapentin 00/00 Hx Capsules 300mg TK 1 C PO Unknown /0000 D - 12/05 Pantoprazole 00/[address] 40mg Unknown Sodium /0000 - 12/05 Nitrofurantoin 00/00 Hx Capsules 100mg TK 1 C PO Unknown Monohydrate/Macroc /0000 bid For rystals - Urinary 12/05 Infection Ondansetron 00/00 Hx Tablets 4mg Unknown /0000 Dispers - 12/05 Phenazopyridine 00/00 Hx Tablets 100mg TK 1 T PO Unknown HCL /0000 tid - 12/05 Minocycline HCL 00/00 Hx Capsules 100mg TK 1 C PO Unknown /0000 D WF - 12/05 Ciprofloxacin HCL 00/00 Hx Tablets 250mg Unknown /0000 - 12/05 Warfarin Sodium 00/00 Hx Tablets 4mg TK 1 T PO Unknown /0000 qd - 12/05 Warfarin Sodium 00 Hx Tablets 5mg TK as Unknown Directed - 12/05 Simvastatin Hx Tablets 80mg - 12/05 Triamcinolone Hx Ointment 0.1% Jason To Unknown Acetonide Arms Once - Daily 12/05 Medications Administered in Office Medication Date Status Form Strength Qnty SIG Indications Ordering Provider Methylprednisolone 05/09 Administered Injection Noemy Delilah (Depomedrol) 80mg S., RPA injection Immunizations Description No Information Available Vital Signs Date Vital Result Comment 06/25/2018 2:19pm BP Systolic Sitting Left Arm 128 mmHg BP Diastolic Sitting Left Arm 68 mmHg Heart Rate 83 /min Respiratory Rate 18 /min Height 63.5 inches 5'3.50" Weight 167.00 lb BMI (Body Mass Index) 29.1 kg/m2 BSA (Body Surface Area) 1.80 m2 [place] body weight in kilograms 53 kg O2 % BldC Oximetry 95 % Ora 07/17/2017 11:28am BP Systolic Sitting Left Arm 118 mmHg BP Diastolic Sitting Left Arm 75 mmHg Heart Rate 79 /min Height 63.5 inches 5'3.50" Weight 166.00 lb BMI (Body Mass Index) 28.9 kg/m2 BSA (Body Surface Area) 1.80 m2 [place] body weight in kilograms 53 kg 05/15/2017 1:28pm BP Systolic 145 mmHg BP Diastolic 68 mmHg Body Temperature 97.0 F Heart Rate 81 /min Respiratory Rate 15 /min Height 63.5 inches 5'3.50" Weight 160.00 lb BMI (Body Mass Index) 27.9 kg/m2 BSA (Body Surface Area) 1.77 m2 [place] body weight in kilograms 53 kg 03/13/2017 1:10pm BP Systolic Sitting Left Arm 121 mmHg BP Diastolic Sitting Left Arm 68 mmHg Heart Rate 73 /min Height 63.5 inches 5'3.50" Weight 162.00 lb BMI (Body Mass Index) 28.2 kg/m2 BSA (Body Surface Area) 1.78 m2 [place] body weight in kilograms 53 kg 02/25/2017 9:22am BP Systolic Sitting Left Arm 130 mmHg BP Diastolic Sitting Left Arm 82 mmHg Body Temperature 98.3 F Heart Rate 99 /min Height 63.5 inches 5'3.50" Weight 167.00 lb BMI (Body Mass Index) 29.1 kg/m2 BSA (Body Surface Area) 1.80 m2 [place] body weight in kilograms 53 kg 01/14/2017 12:05pm BP Systolic Sitting Left Arm 118 mmHg BP Diastolic Sitting Left Arm 68 mmHg Heart Rate 78 /min Respiratory Rate 16 /min Height 63.5 inches 5'3.50" Weight 166.00 lb BMI (Body Mass Index) 28.9 kg/m2 BSA (Body Surface Area) 1.80 m2 [place] body weight in kilograms 53 kg 05/17/2016 10:14am BP Systolic Sitting Left Arm 136 mmHg BP Diastolic Sitting Left Arm 80 mmHg Heart Rate 99 /min Height 63.5 inches 5'3.50" Weight 159.00 lb BMI (Body Mass Index) 27.7 kg/m2 BSA (Body Surface Area) 1.76 m2 [place] body weight in kilograms 53 kg 04/11/2016 3:38pm BP Systolic Sitting Left Arm 122 mmHg BP Diastolic Sitting Left Arm 78 mmHg Heart Rate 64 /min Respiratory Rate 16 /min Height 64 inches 5'4" Weight 156.00 lb BMI (Body Mass Index) 26.8 kg/m2 BSA (Body Surface Area) 1.76 m2 03/30/2016 9:35am BP Systolic Sitting Left Arm 126 mmHg BP Diastolic Sitting Left Arm 72 mmHg Body Temperature 97.7 F Heart Rate 83 /min Height 64 inches 5'4" Weight 9710.00 lb BMI (Body Mass Index) 1666.5 kg/m2 BSA (Body Surface Area) 10.19 m2 [place] body weight in kilograms 54 kg O2 % BldC Oximetry 97 % 02/24/2016 8:33am BP Systolic Sitting Right Arm 112 mmHg BP Diastolic Sitting Right Arm 62 mmHg Body Temperature 99.3 F Heart Rate 91 /min Weight 156.00 lb O2 % BldC Oximetry 98 % 01/05/2016 10:45am BP Systolic Sitting Right Arm 110 mmHg BP Diastolic Sitting Right Arm 64 mmHg Heart Rate 56 /min Respiratory Rate 16 /min Height 64 inches 5'4" Weight 158.00 lb BMI (Body Mass Index) 27.1 kg/m2 BSA (Body Surface Area) 1.77 m2 01/02/2016 10:05am BP Systolic Sitting Left Arm 122 mmHg BP Diastolic Sitting Left Arm 73 mmHg Heart Rate 66 /min Height 64 inches 5'4" Weight 152.00 lb BMI (Body Mass Index) 26.1 kg/m2 BSA (Body Surface Area) 1.74 m2 [place] body weight in kilograms 54 kg 09/27/2015 9:36am BP Systolic Sitting Right Arm 122 mmHg BP Diastolic Sitting Right Arm 58 mmHg Heart Rate 71 /min Respiratory Rate 16 /min Height 64.5 inches 5'4.50" Weight 161.00 lb BMI (Body Mass Index) 27.2 kg/m2 BSA (Body Surface Area) 1.79 m2 03/29/2015 9:05am BP Systolic Sitting Left Arm 128 mmHg BP Diastolic Sitting Left Arm 66 mmHg Heart Rate 82 /min Respiratory Rate 16 /min Height 64.5 inches 5'4.50" Weight 150.00 lb BMI (Body Mass Index) 25.3 kg/m2 BSA (Body Surface Area) 1.74 m2 12/29/2014 1:54pm BP Systolic Sitting Left Arm 104 mmHg BP Diastolic Sitting Left Arm 50 mmHg Heart Rate 94 /min Respiratory Rate 16 /min Height 64.5 inches 5'4.50" Weight 163.00 lb per pt-unable to stand BMI (Body Mass Index) 27.5 kg/m2 BSA (Body Surface Area) 1.80 m2 09/10/2013 9:24am BP Systolic Sitting Right Arm 121 mmHg BP Diastolic Sitting Right Arm 68 mmHg Heart Rate 87 /min Respiratory Rate 18 /min Height 64.5 inches 5'4.50" Weight 169.00 lb BMI (Body Mass Index) 28.6 kg/m2 BSA (Body Surface Area) 1.83 m2 04/16/2013 3:23pm BP Systolic Sitting Left Arm 144 mmHg BP Diastolic Sitting Left Arm 74 mmHg Height 64 inches 5'4" Weight 170.00 lb BMI (Body Mass Index) 29.2 kg/m2 BSA (Body Surface Area) 1.83 m2 10/15/2012 1:51pm Height 62.50 inches 5'2.50" Weight 169.00 lb 04/02/2012 3:31pm Height 63 inches 5'3" Weight 160.00 lb 04/04/2011 3:08pm Height 62.5 inches 5'2.50" Weight 161.00 lb 03/01/2010 11:09am Height 64 inches 5'4" Weight 164.00 lb 05/11/2009 11:41am Height 64 inches 5'4" Weight 182.00 lb 10/04/2008 3:47pm Height 64.5 inches 5'4.50" Weight 180.00 lb 04/05/2008 3:27pm Height 64 inches 5'4" Weight 180.00 lb 10/08/2007 3:19pm Height 64 inches 5'4" Weight 182.00 lb 04/02/2007 3:28pm Height 63.5 inches 5'3.50" Weight 178.00 lb 03/13/2006 9:18am Height 64 inches 5'4" Weight 174.00 lb 08/30/2005 11:33am Height 64 inches 5'4" Weight 184.00 lb 08/15/2005 2:27pm Height 64 inches 5'4" Weight 184.00 lb 11/09/2004 10:11am Height 64 inches 5'4" Weight 184.00 lb Results Test Date Facility Test Result H/L Range Note Routine Culture 03/05/2017 [facility] Gram Stain RARE WHITE N 1, 2 W/ Gram Stain [address] BLOOD <[place] [address] NOTE> [phone] Gram Stain NO ORGANISMS SEE <SEE NOTE> N 3 Aerobic Culture NO GROWTH: FINAL <SEE NOTE> 4 [id number] 05/31/2016 [facility] Oxacillin >=4 R [address] [place] [address] [phone] Tetracycline 2 S Trimethoprim/Sulfamethoxazole <=10 S Erythromycin >=8 R Clindamycin >=8 R Moxifloxacin 4 I Vancomycin <=0.5 S Laboratory test 05/31/2016 N2N/CCD Import Mean Corpuscular 30.4 25.9- 32.7 finding Hemoglobin Mean Corpuscular Hemoglobin Concent 32.4 30.8-34.3 Mean Corpuscular Volume 93.7 80.9-99.0 RDW Coefficient of Variation 13.8 11.7-14.4 Continuous Oximetry 05/31/2016 [facility] Oximetry 91 % Low 93-98 5 [address] [place] [address] [phone] Fio2 21 N 21-100 Heart Rate 124 BPM N Patient Status AMBULATING N Blood Gas Patient 05/31/2016 N2N/CCD Import Blood Gas Patient 124 Heart Rate Heart Rate Blood Gas Patient 05/31/2016 N2N/CCD Import Blood Gas Patient Ambulating Status Status Oxygen Saturation 05/31/2016 N2N/CCD Import Oxygen Saturation 91 Low 93- 98 (Pulse Oximetry) (Pulse Oximetry) Continuous 05/31/2016 [facility] Oximetry 96 % N 93-[address] [place] [address] [phone] Fio2 21 N 21-100 Heart Rate 107 BPM N Patient Status RESTING N Patient Position SITTING UP IN BE <SEE NOTE> N 6 Blood Gas 05/31/2016 N2N/CCD Import Blood Gas Sitting Up In Position Position Bed CBC 05/31/2016 [facility] White Blood 11.1 K/uL High 3.1-10. [address] Count [address] [place], [place] [address] [phone] Red Blood Count 3.16 M/uL Low 3.90-5.40 Hemoglobin 9.6 gm/dL Low 11.6-15.8 Hematocrit 29.6 % Low 36.0-46.1 Mean Cell Volume 93.7 fl N 80.9-99.0 Mean Corpuscular HGB 30.4 pg N 25.9-32.7 Mean Corpuscular HGB Conc 32.4 g/dL N 30.8-34.3 Platelet Count 314 K/uL N 155-360 Red Cell Distri Width %CV 13.8 % N 11.7-14.4 Mean Platelet Volume 10.3 fL N 8.9-12.4 Laboratory 05/31/2016 [facility] Creatinine 1.0 mg/dL N 0.6-1.3 test finding [address] [place] [address] [phone] MRSA Screen 05/29/2016 [facility] MRSA Screen METHICILLIN Abnormal [address] RESI <[place] [address] NOTE> [phone] Quantity FROM BROTH N Type And Screen 05/29/2016 [facility] Patient Blood Type O POS N [address] [place], [place] [id number] [phone] Antibody Screen Negative N Negative Laboratory test 05/11/2016 N2N/CCD Import Alanine Aminotransferase 19 12 -78 finding (Alt/SGPT) Albumin 3.3 Low 3.4-5.0 Albumin/Globulin Ratio 1.0 Alkaline Phosphatase 97 45-117 Anion Gap 5 Low 8-16 BUN/Creatinine Ratio 16.0 Basophils # (Auto) 0.03 0.0-0.1 Basophils (%) (Auto) 0.4 0.0-1.1 Blood Urea Nitrogen 16 7-18 Calcium Level 8.9 8.5-10.1 Carbon Dioxide Level 31 21-32 Chloride Level 105 98-107 Eosinophils # (Auto) 0.52 High 0.0-0.5 Eosinophils (%) (Auto) 6.4 0.0-6.6 Estimated GFR (Non- 58 >60 Globulin 3.4 1.9-4.3 Glucose Screen 89 74-106 LDL Cholesterol, Calculated 81 < 100 Lymphocytes (%) (Auto) 14.2 Low 17.0-46.1 Monocytes # (Auto) 0.67 0.3-0.9 Monocytes (%) (Auto) 8.3 4.3-13.2 Neutrophils (%) (Auto) 70.7 40.4-72.8 Potassium Level 4.1 3.5-5.1 Red Cell Distribution Width 45.3 3-47 Sodium Level 141 136-145 Total Bilirubin 0.4 0.2-1.0 Total Protein 6.7 6.4-8.2 Aspartate Amino 05/11/2016 N2N/CCD Import Aspartate Amino 21 15-37 Transf (Ast/Sgot) Transf (Ast/Sgot) Cholesterol Level 05/11/2016 N2N/CCD Import Cholesterol Level 177 <200 HDL Cholesterol 05/11/2016 N2N/CCD Import HDL Cholesterol 78 >40 Lymphocytes # 05/11/2016 N2N/CCD Import Lymphocytes # 1.15 Low 1.8-7.0 (Auto) (Auto) Neutrophils # 05/11/2016 N2N/CCD Import Neutrophils # 5.73 1.8-7.0 (Auto) (Auto) Triglycerides Level 05/11/2016 N2N/CCD Import Triglycerides Level 92 < 150 CBC 04/04/2016 [facility] White Blood Count 6.6 K/uL N 3.1-10.7 8 [address] [place] [address] [phone] Red Blood Count 3.27 M/uL Low 3.90-5.40 Hemoglobin 10.0 gm/dL Low 11.6-15.8 Hematocrit 31.2 % Low 36.0-46.1 Mean Cell Volume 95.4 fl N 80.9-99.0 Mean Corpuscular HGB 30.6 pg N 25.9-32.7 Mean Corpuscular HGB Conc 32.1 g/dL N 30.8-34.3 Platelet Count 338 K/uL N 155-360 Red Cell Distri Width %CV 14.1 % N 11.7-14.4 Mean Platelet Volume 10.6 fL N 8.9-12.4 Basic Metabolic Panel 04/04/2016 [facility] Glucose 81 mg/dL N 74-106 [address] [place], [place] [address] [phone] BUN 7 mg/dL N 7-18 Creatinine 1.0 mg/dL N 0.6-1.3 Glom Filtration Rate, Estimate 58 mL/min N >60 If >60 mL/min N >60 9 BUN/Creat 7.0 ratio N Sodium 143 mmol/L N 136-145 Potassium 3.8 mmol/L N 3.5-5.1 Chloride 108 mmol/L High 98-107 Carbon Dioxide 26 mmol/L N 21-32 Anion Gap 9 mEq/L N 8-16 Calcium 8.3 mg/dL Low 8.5-10.1 Laboratory test 04/04/2016 [facility] Magnesium 1.7 mg/dL Low 1.8-2.4 finding [address] [place] [address] [phone] Laboratory test 04/04/2016 N2N/CCD Import Magnesium 1.7 Low 1.8-2.4 finding Level CBC 04/03/2016 [facility] White Blood 12.0 K/uL High 3.1-10.[address] [place] [address] [phone] Red Blood Count 3.42 M/uL Low 3.90-5.40 Hemoglobin 10.3 gm/dL Low 11.6-15.8 Hematocrit 32.5 % Low 36.0-46.1 Mean Cell Volume 95.0 fl N 80.9-99.0 Mean Corpuscular HGB 30.1 pg N 25.9-32.7 Mean Corpuscular HGB Conc 31.7 g/dL N 30.8-34.3 Platelet Count 326 K/uL N 155-360 Red Cell Distri Width %CV 13.9 % N 11.7-14.4 Mean Platelet Volume 10.5 fL N 8.9-12.4 Basic Metabolic Panel 04/03/2016 [facility] Glucose 97 mg/dL N 74-106 [address] [place], [place] [address] [phone] BUN 4 mg/dL Low 7-18 Creatinine 0.9 mg/dL N 0.6-1.3 Glom Filtration Rate, Estimate >60 mL/min N >60 If >60 mL/min N >60 10 BUN/Creat 4.4 ratio N Sodium 143 mmol/L N 136-145 Potassium 3.8 mmol/L N 3.5-5.1 Chloride 108 mmol/L High 98-107 Carbon Dioxide 31 mmol/L N 21-32 Anion Gap 4 mEq/L Low 8-16 Calcium 8.3 mg/dL Low 8.5-10.1 Laboratory test 04/03/2016 [facility] Magnesium 1.4 mg/dL Low 1.8-2.4 finding [address] [place] [address] [phone] Laboratory test 04/02/2016 [facility] C. Difficile NEGATIVE FOR 11 finding [address] Toxin A/B C. <[place] [address] NOTE> [phone] Basic Metabolic 04/02/2016 [facility] Glucose 97 mg/dL N 74-106 Panel [address] [place], [place] [id number] [phone] BUN 7 mg/dL N 7-18 Creatinine 1.0 mg/dL N 0.6-1.3 Glom Filtration Rate, Estimate 58 mL/min N >60 If >60 mL/min N >60 12 BUN/Creat 7.0 ratio N Sodium 143 mmol/L N 136-145 Potassium 3.8 mmol/L N 3.5-5.1 Chloride 107 mmol/L N 98-107 Carbon Dioxide 31 mmol/L N 21-32 Anion Gap 5 mEq/L Low 8-16 Calcium 8.3 mg/dL Low 8.5-10.1 CBS W/Automated 04/02/2016 [facility] White Blood 11.4 K/uL High 3.1-10.[address] [place] [address] [phone] Red Blood Count 3.37 M/uL Low 3.90-5.40 Hemoglobin 10.4 gm/dL Low 11.6-15.8 Hematocrit 32.7 % Low 36.0-46.1 Mean Cell Volume 97.0 fl N 80.9-99.0 Mean Corpuscular HGB 30.9 pg N 25.9-32.7 Mean Corpuscular HGB Conc 31.8 g/dL N 30.8-34.3 Platelet Count 325 K/uL N 155-360 Red Cell Distri Width SD 47.7 fl High 3-47 Red Cell Distri Width %CV 14.1 % N 11.7-14.4 Mean Platelet Volume 10.4 fL N 8.9-12.4 Neut% 75.8 % High 40.4-72.8 Lymph % 11.2 % Low 17.0-46.1 [place] % 7.3 % N 4.3-13.2 Eo% 5.5 % N 0.0-6.6 Bas% 0.2 % N 0.0-1.1 Neut# 8.62 K/uL High 1.8-7.0 Lymph # 1.27 K/uL Low 1.8-7.0 [place] # 0.83 K/uL N 0.3-0.9 Eos # 0.63 K/uL High 0.0-0.5 Baso # 0.02 K/uL N 0.0-0.1 Slide Review 04/02/2016 [facility] Slide Review . N [address] [place] [address] [phone] Manual Slide 04/02/2016 N2N/CCD Import Manual Slide . Review Review (Hematology) (Hematology) Stool Occult 03/31/2016 N2N/CCD Import Stool Occult Positive High Negative Blood Blood Laboratory test 03/31/2016 N2N/CCD Import Lipase 130 73-393 finding CBS W/Automated 01/24/2016 [facility] White Blood 9.1 K/uL N 3.1-10.7 [address] [place] [address] [phone] Red Blood Count 2.91 M/uL Low 3.90-5.40 Hemoglobin 8.9 gm/dL Low 11.6-15.8 Hematocrit 27.1 % Low 36.0-46.1 Mean Cell Volume 93.1 fl N 80.9-99.0 Mean Corpuscular HGB 30.6 pg N 25.9-32.7 Mean Corpuscular HGB Conc 32.8 g/dL N 30.8-34.3 Platelet Count 705 K/uL High 155-360 Red Cell Distri Width SD 46.4 fl N 3-47 Red Cell Distri Width %CV 14.2 % N 11.7-14.4 Mean Platelet Volume 9.0 fL N 8.9-12.4 Neut% 72.5 % N 40.4-72.8 Lymph % 14.2 % Low 17.0-46.1 [place] % 8.0 % N 4.3-13.2 Eo% 5.0 % N 0.0-6.6 Bas% 0.3 % N 0.0-1.1 Neut# 6.61 K/uL N 1.8-7.0 Lymph # 1.30 K/uL Low 1.8-7.0 [place] # 0.73 K/uL N 0.3-0.9 Eos # 0.46 K/uL N 0.0-0.5 Baso # 0.03 K/uL N 0.0-0.1 Basic Metabolic Panel 01/24/2016 [facility] Glucose 89 mg/dL N 74-[address] [place] [address] [phone] BUN 11 mg/dL N 7-18 Creatinine 0.9 mg/dL N 0.6-1.3 Glom Filtration Rate, Estimate >60 mL/min N >60 If >60 mL/min N >60 15 BUN/Creat 12.2 ratio N Sodium 137 mmol/L N 136-145 Potassium 4.1 mmol/L N 3.5-5.1 Chloride 102 mmol/L N 98-107 Carbon Dioxide 30 mmol/L N 21-32 Anion Gap 5 mEq/L Low 8-16 Calcium 9.1 mg/dL N 8.5-10.1 Is Patient Fasting? Non-Fasting Laboratory 01/24/2016 [facility] Vancomycin,Trough 17.2 N 15.0-20.0 16 test finding [address] ug/[place] [address] [phone] Slide Review . N 17 Laboratory test finding 01/24/2016 N2N/CCD Import BUN/Creatinine Ratio 12.2 Basophils # (Auto) 0.03 0.0-0.1 Basophils (%) (Auto) 0.3 0.0-1.1 Blood Urea Nitrogen 11 7-18 Calcium Level 9.1 8.5-10.1 Carbon Dioxide Level 30 21-32 Chloride Level 102 98-107 Eosinophils # (Auto) 0.46 0.0-0.5 Eosinophils (%) (Auto) 5.0 0.0-6.6 Glucose Screen 89 74-106 Lymphocytes # (Auto) 1.30 Low 1.8-7.0 Lymphocytes (%) (Auto) 14.2 Low 17.0-46.1 Manual Slide Review (Hematology) . Mean Corpuscular Hemoglobin 30.6 25.9-32.7 Mean Corpuscular Hemoglobin Concent 32.8 30.8-34.3 Mean Corpuscular Volume 93.1 80.9-99.0 Monocytes # (Auto) 0.73 0.3-0.9 Monocytes (%) (Auto) 8.0 4.3-13.2 Neutrophils # (Auto) 6.61 1.8-7.0 Neutrophils (%) (Auto) 72.5 40.4-72.8 Potassium Level 4.1 3.5-5.1 RDW Coefficient of Variation 14.2 11.7-14.4 Red Cell Distribution Width 46.4 3-47 Sodium Level 137 136-145 Laboratory test 01/23/2016 [facility] C. Difficile NEGATIVE FOR [address] Toxin A/B C. <[place] [address] NOTE> [phone] CBS W/Automated 01/22/2016 [facility] White Blood 13.2 K/uL High 3.1-[address] Count 0.7 [place] [address] [phone] Red Blood Count 3.09 M/uL Low 3.90-5.40 Hemoglobin 9.3 gm/dL Low 11.6-15.8 Hematocrit 28.4 % Low 36.0-46.1 Mean Cell Volume 91.9 fl N 80.9-99.0 Mean Corpuscular HGB 30.1 pg N 25.9-32.7 Mean Corpuscular HGB Conc 32.7 g/dL N 30.8-34.3 Platelet Count 657 K/uL High 155-360 Red Cell Distri Width SD 45.5 fl N 3-47 Red Cell Distri Width %CV 14.2 % N 11.7-14.4 Mean Platelet Volume 9.2 fL N 8.9-12.4 Neut% 77.8 % High 40.4-72.8 Lymph % 11.2 % Low 17.0-46.1 [place] % 7.2 % N 4.3-13.2 Eo% 3.6 % N 0.0-6.6 Bas% 0.2 % N 0.0-1.1 Neut# 10.22 K/uL High 1.8-7.0 Lymph # 1.48 K/uL Low 1.8-7.0 [place] # 0.95 K/uL High 0.3-0.9 Eos # 0.48 K/uL N 0.0-0.5 Baso # 0.03 K/uL N 0.0-0.1 Basic Metabolic Panel 01/22/2016 [facility] Glucose 122 mg/dL High 74-[address] [place] [address] [phone] BUN 12 mg/dL N 7-18 Creatinine 0.9 mg/dL N 0.6-1.3 Glom Filtration Rate, Estimate >60 mL/min N >60 If >60 mL/min N >60 19 BUN/Creat 13.3 ratio N Sodium 136 mmol/L N 136-145 Potassium 3.7 mmol/L N 3.5-5.1 Chloride 98 mmol/L N 98-107 Carbon Dioxide 33 mmol/L High 21-32 Anion Gap 5 mEq/L Low 8-16 Calcium 9.5 mg/dL N 8.5-10.1 Is Patient Fasting? Non-Fasting Slide Review 01/22/2016 [facility] Slide . N [address] [place] [address] [phone] Laboratory test 01/21/2016 [facility] Vancomycin, 13.7 ug/mL Low 15.0-20.[address] [place] [address] [phone] Urine Screen 01/20/2016 [facility] Urine Color YELLOW N Yellow [address] [place] [address] [phone] Urine Clarity CLEAR N Clear Urine Glucose - Dipstick NEGATIVE mg/dL N Negative Urine Bilirubin - Dipstick NEGATIVE N Negative Urine Ketone NEGATIVE mg/dL N Negative Urine Specific Uledi 1.010 N 1.010-1.030 Urine Blood NEGATIVE N Negative Urine PH 7.5 N 6.5-7.5 Urine Protein - Dipstick NEGATIVE mg/dL N Negative Urine Urobilinogen - Dipstick 0.2 E.U./dL N 0.2-1.0 Urine Nitrite - Dipstick NEGATIVE N Negative Urine Leuk Esterase NEGATIVE N Negative Source: URINE, CLEAN CAT <SEE NOTE> 21 Urine Culture 01/20/2016 [facility] Urine Culture MIXED URETHRAL F [address] <SEE NOTE> [place] [address] [phone] Quantity < 10,000 CFU/mL N Laboratory test 01/20/2016 N2N/CCD Import Urine Bilirubin Negative Negative finding Urine Glucose (Ua) Negative Negative Urine Ketones Negative Negative Urine Leukocyte Esterase Negative Negative Urine Nitrite Negative Negative Urine Protein Negative Negative Urine Urobilinogen 0.2 0.2-1.0 CBS W/Automated 01/20/2016 [facility] White Blood 11.0 K/uL High 3.1-10.[address] [place] [address] [phone] Red Blood Count 3.06 M/uL Low 3.90-5.40 Hemoglobin 9.3 gm/dL Low 11.6-15.8 Hematocrit 28.1 % Low 36.0-46.1 Mean Cell Volume 91.8 fl N 80.9-99.0 Mean Corpuscular HGB 30.4 pg N 25.9-32.7 Mean Corpuscular HGB Conc 33.1 g/dL N 30.8-34.3 Platelet Count 549 K/uL High 155-360 Red Cell Distri Width SD 45.1 fl N 3-47 Red Cell Distri Width %CV 14.1 % N 11.7-14.4 Mean Platelet Volume 9.5 fL N 8.9-12.4 Neut% 73.1 % High 40.4-72.8 Lymph % 13.4 % Low 17.0-46.1 [place] % 10.2 % N 4.3-13.2 Eo% 3.0 % N 0.0-6.6 Bas% 0.3 % N 0.0-1.1 Neut# 8.05 K/uL High 1.8-7.0 Lymph # 1.47 K/uL Low 1.8-7.0 [place] # 1.12 K/uL High 0.3-0.9 Eos # 0.33 K/uL N 0.0-0.5 Baso # 0.03 K/uL N 0.0-0.1 Slide Review 01/20/2016 [facility] Slide Review . N 23 [address] [place] [address] [phone] Basic Metabolic 01/20/2016 [facility] Glucose 100 mg/dL N 74-[address] [place] [address] [phone] BUN 11 mg/dL N 7-18 Creatinine 0.8 mg/dL N 0.6-1.3 Glom Filtration Rate, Estimate >60 mL/min N >60 If >60 mL/min N >60 24 BUN/Creat 13.7 ratio N Sodium 136 mmol/L N 136-145 Potassium 4.6 mmol/L N 3.5-5.1 Chloride 101 mmol/L N 98-107 Carbon Dioxide 33 mmol/L High 21-32 Anion Gap 2 mEq/L Low 8-16 Calcium 9.2 mg/dL N 8.5-10.1 Is Patient Fasting? Non-Fasting Laboratory test 01/20/2016 N2N/CCD Import C-Reactive Protein, 185.0 High <3.0 finding Quantitative C-Reactive 01/20/2016 [facility] C-Reactive 185.0 mg/L High <3.0 Protein,Quant [address] Protein,[place] [address] [phone] Is Patient Fasting? Non-Fasting Laboratory 01/19/2016 [facility] Vancomycin,Trough 8.0 Low 15.0-20.0 25 test finding [address] ug/[place] [address] [phone] C-Reactive 01/18/2016 [facility] C-Reactive 269.0 High <3.0 26 Protein,Quant [address] Protein,Quant mg/[place] [address] [phone] Is Patient Fasting? Non-Fasting Basic Metabolic Panel 01/18/2016 [facility] Glucose 138 mg/dL High 74-[address] [place] [address] [phone] BUN 13 mg/dL N 7-18 Creatinine 0.8 mg/dL N 0.6-1.3 Glom Filtration Rate, Estimate >60 mL/min N >60 If >60 mL/min N >60 27 BUN/Creat 16.2 ratio N Sodium 133 mmol/L Low 136-145 Potassium 3.2 mmol/L Low 3.5-5.1 Chloride 96 mmol/L Low 98-107 Carbon Dioxide 31 mmol/L N 21-32 Anion Gap 6 mEq/L Low 8-16 Calcium 8.9 mg/dL N 8.5-10.1 Is Patient Fasting? Non-Fasting Slide Review 01/18/2016 [facility] Slide Review . N 28 [address] [place] [address] [phone] CBS W/Automated 01/18/2016 [facility] White Blood 12.9 K/uL High 3.1-10.7 Diff [address] [place] [address] [phone] Red Blood Count 3.01 M/uL Low 3.90-5.40 Hemoglobin 9.0 gm/dL Low 11.6-15.8 Hematocrit 27.4 % Low 36.0-46.1 Mean Cell Volume 91.0 fl N 80.9-99.0 Mean Corpuscular HGB 29.9 pg N 25.9-32.7 Mean Corpuscular HGB Conc 32.8 g/dL N 30.8-34.3 Platelet Count 421 K/uL High 155-360 Red Cell Distri Width SD 43.6 fl N 3-47 Red Cell Distri Width %CV 13.6 % N 11.7-14.4 Mean Platelet Volume 9.9 fL N 8.9-12.4 Neut% 75.6 % High 40.4-72.8 Lymph % 8.8 % Low 17.0-46.1 [place] % 14.4 % High 4.3-13.2 Eo% 1.0 % N 0.0-6.6 Bas% 0.2 % N 0.0-1.1 Neut# 9.76 K/uL High 1.8-7.0 Lymph # 1.13 K/uL Low 1.8-7.0 [place] # 1.85 K/uL High 0.3-0.9 Eos # 0.13 K/uL N 0.0-0.5 Baso # 0.02 K/uL N 0.0-0.1 Laboratory test 01/18/2016 N2N/CCD Import Aerobic Blood No Growth: Final finding Culture Report Anaerobic Blood Culture No Growth: Final Report Blood Culture 01/18/2016 [facility] Blood Culture NO GROWTH: 29, [address] Aerobic FINAL <[place] [address] NOTE> [phone] Blood Culture Anaerobic NO GROWTH: FINAL <SEE NOTE> 31 Laboratory test 01/18/2016 N2N/CCD Import Aerobic Blood No Growth: Final finding Culture Report Anaerobic Blood Culture No Growth: Final Report Blood Culture 01/18/2016 [facility] Blood Culture NO GROWTH: FINAL [address] Aerobic <SEE NOTE> [place], [place] [address] [phone] Blood Culture Anaerobic NO GROWTH: FINAL <SEE NOTE> 33 CCP Igg/Iga 01/17/2016 [facility] CCP Igg/Iga 27 units High 0-[address] Antibodies [place], [place] [id number] [phone] Laboratory 01/17/2016 N2N/CCD Import Anti-Cyclic 27 High 0-19 test finding Citrullinated Peptide Aot Request 01/17/2016 [facility] Aot Request Test(s) N 35, [address] [place] [address] [phone] Tests to be added: anti ccp Laboratory test 01/17/2016 N2N/CCD Import Miscellaneous Test Test(s) added finding Comment Laboratory test 01/17/2016 [facility] Uric Acid 4.1 mg/dL N 2.6-6.[address] [place] [address] [phone] Laboratory test 01/17/2016 [facility] Lactic Acid 1.6 mmol/L N 0.4-1.[address] [place] [address] [phone] Laboratory test 01/17/2016 [facility] Rheumatoid Factor < 10.0 IU/mL N 0.0- 15.[address] [place] [address] [phone] Laboratory test 01/17/2016 N2N/CCD Import Lactic Acid Level 1.6 0.4-1.9 finding Urine Screen 01/17/2016 [facility] Urine Color YELLOW N Yellow [address] [place] [address] [phone] Urine Clarity CLEAR N Clear Urine Glucose - Dipstick NEGATIVE mg/dL N Negative Urine Bilirubin - Dipstick NEGATIVE N Negative Urine Ketone NEGATIVE mg/dL N Negative Urine Specific [place] <=1.005 Low 1.010-1.030 Urine Blood TRACE N Negative Urine PH 5.5 Low 6.5-7.5 Urine Protein - Dipstick NEGATIVE mg/dL N Negative Urine Urobilinogen - Dipstick 0.2 E.U./dL N 0.2-1.0 Urine Nitrite - Dipstick NEGATIVE N Negative Urine Leuk Esterase NEGATIVE N Negative Source: URINE, CLEAN CAT <SEE NOTE> 37 Comprehensive Metabolic 01/17/2016 [facility] Glucose 111 mg/dL High 74-106 Panel [address] [place] [address] [phone] BUN 17 mg/dL N 7-18 Creatinine 0.9 mg/dL N 0.6-1.3 Glom Filtration Rate, Estimate >60 mL/min N >60 If >60 mL/min N >60 38 BUN/Creat 18.8 ratio N Sodium 132 mmol/L Low 136-145 Potassium 3.7 mmol/L N 3.5-5.1 Chloride 98 mmol/L N 98-107 Carbon Dioxide 26 mmol/L N 21-32 Anion Gap 8 mEq/L N 8-16 Calcium 9.0 mg/dL N 8.5-10.1 Total Protein 6.5 g/dL N 6.4-8.2 Albumin 2.1 g/dL Low 3.4-5.0 Globulin 4.4 g/dL High 1.9-4.3 Alb/Glob 0.5 ratio N Bilirubin,Total 0.7 mg/dL N 0.2-1.0 Sgot/Ast 52 U/L High 15-37 SGPT/Alt 35 U/L N 12-78 Alkaline Phosphatase 163 U/L High 45-117 Is Patient Fasting? Non-Fasting Laboratory test 01/17/2016 N2N/CCD Import Alanine Aminotransferase 35 # 12-78 finding (Alt/SGPT) Albumin/Globulin Ratio 0.5 Aspartate Amino Transf (Ast/Sgot) 52 #H 15-37 Total Bilirubin 0.7 0.2-1.0 Laboratory test finding 01/15/2016 N2N/CCD Import Urine Bacteria Few None Seen Urine Bilirubin Small High Negative Urine Blood Small High Negative Urine Clarity Clear Clear Urine Color DK Yellow Yellow Urine Culture Organism: Urethral Melanie Urine Epithelial Cells Few None Seen Urine Glucose (Ua) Negative Negative Urine Ketones Trace High Negative Urine Leukocyte Esterase Trace High Negative Urine Mucus Very Few None Seen Urine Nitrite Negative Negative Urine Protein 100 High Negative Urine Specific [place] 1.020 1.010-1.030 Urine Urobilinogen 0.2 0.2-1.0 Urine pH 5.5 Low 6.5-7.5 Laboratory test 01/15/2016 N2N/CCD Import Alanine Aminotransferase 24 12 -78 finding (Alt/SGPT) Albumin 2.4 Low 3.4-5.0 Albumin/Globulin Ratio 0.5 Alkaline Phosphatase 114 45-117 Anion Gap 6 Low 8-16 Aspartate Amino Transf (Ast/Sgot) 25 15-37 BUN/Creatinine Ratio 19.0 Band Neutrophils % 4 0-8 Basophils # (Auto) 0.02 0.0-0.1 Blood Urea Nitrogen 19 High 7-18 Calcium Level 8.9 8.5-10.1 Carbon Dioxide Level 32 21-32 Chloride Level 94 Low 98-107 Creatinine 1.0 0.6-1.3 Differential Total Cells Counted 100 Eosinophils # (Auto) 0.05 0.0-0.5 Estimated GFR (Non- 58 >60 Globulin 4.6 High 1.9-4.3 Glucose Screen 110 High 74-106 Hematocrit 32.1 Low 36.0-46.1 Hemoglobin 10.6 Low 11.6-15.8 Lymphocytes # (Auto) 0.98 Low 1.8-7.0 Lymphocytes % 5 Low 17-56 Manual Slide Review (Hematology) Diff Ordered Mean Corpuscular Hemoglobin 31.0 25.9-32.7 Mean Corpuscular Hemoglobin Concent 33.0 30.8-34.3 Mean Corpuscular Volume 93.9 80.9-99.0 Mean Platelet Volume 10.3 8.9-12.4 Monocytes # (Auto) 2.27 High 0.3-0.9 Monocytes % 12 High 0-10 Neutrophils # (Auto) 18.13 High 1.8-7.0 Neutrophils % 79 High 33-73 Platelet Count 349 155-360 Platelet Estimate Normal Potassium Level 3.4 Low 3.5-5.1 RDW Coefficient of Variation 13.7 11.7-14.4 Red Blood Count 3.42 Low 3.90-5.40 Red Cell Distribution Width 45.1 3-47 Sodium Level 132 Low 136-145 Total Bilirubin 0.9 0.2-1.0 Total Protein 7.0 6.4-8.2 White Blood Count 21.5 High 3.1-10.7 Protime 01/10/2016 [facility] Protime 14.7 seconds High 12.0-14.4 [address] [place] [address] [phone] Inr 1.2 High 0.9-1.1 39 Laboratory test 01/10/2016 N2N/CCD Import Prothrombin Time 14.7 High 12.0 -14.4 finding Laboratory test 01/10/2016 N2N/CCD Import Pathology See Note 40 finding Specimen Result Basic Metabolic 01/05/2016 [facility] Glucose 82 mg/dL 74-106 Panel [address] [place] [address] [phone] BUN 20 mg/dL High 7-18 Creatinine 1.1 mg/dL 0.6-1.3 Glom Filtration Rate, Estimate 52 mL/min >60 If >60 mL/min >60 41 BUN/Creat 18.1 ratio Sodium 141 mmol/L 136-145 Potassium 3.4 mmol/L Low 3.5-5.1 Chloride 106 mmol/L 98-107 Carbon Dioxide 32 mmol/L 21-32 Anion Gap 3 mEq/L Low 8-16 Calcium 9.0 mg/dL 8.5-10.1 CBC 01/05/2016 [facility] White Blood Count 7.0 K/uL 3.1-10.7 [address] [place] [address] [phone] Red Blood Count 3.85 M/uL Low 3.90-5.40 Hemoglobin 11.9 gm/dL 11.6-15.8 Hematocrit 36.7 % 36.0-46.1 Mean Cell Volume 95.3 fl 80.9-99.0 Mean Corpuscular HGB 30.9 pg 25.9-32.7 Mean Corpuscular HGB Conc 32.4 g/dL 30.8-34.3 Platelet Count 320 K/uL 155-360 Red Cell Distri Width %CV 13.9 % 11.7-14.4 Mean Platelet Volume 11.0 fL 8.9-12.4 Laboratory test finding 01/05/2016 N2N/CCD Import Carbon Dioxide Level 32 21-32 Estimated GFR (Non- 52 >60 RDW Coefficient of Variation 13.9 11.7-14.4 Sodium Level 141 136-145 Laboratory test 01/03/2016 N2N/CCD Import Inr International 3.2 High 0.9- 1.1 finding Normalized Ratio Prothrombin Time 32.1 High 12.0-14.4 Laboratory test 12/06/2015 N2N/CCD Import Inr [employer] 2.4 High 0.9- 1.1 finding Normalized Ratio Prothrombin Time 25.5 High 12.0-14.4 Laboratory test 11/24/2015 N2N/CCD Import Urine Microalbumin 29.2 < 20.0 finding Laboratory test 11/24/2015 N2N/CCD Import Alanine Aminotransferase 20 12 -78 finding (Alt/SGPT) Albumin 3.3 Low 3.4-5.0 Albumin/Globulin Ratio 0.9 Alkaline Phosphatase 86 45-117 Anion Gap 3 Low 8-16 Aspartate Amino Transf (Ast/Sgot) 22 15-37 BUN/Creatinine Ratio 17.5 Blood Urea Nitrogen 21 High 7-18 Calcium Level 8.9 8.5-10.1 Carbon Dioxide Level 32 21-32 Chloride Level 104 98-107 Cholesterol Level 170 <200 Creatinine 1.2 0.6-1.3 Estimated GFR () 56 >60 Estimated GFR (Non- 47 >60 Globulin 3.5 1.9-4.3 Glucose Screen 85 74-106 HDL Cholesterol 69 >40 Hematocrit 37.3 36.0-46.1 Hemoglobin 12.3 11.6-15.8 LDL Cholesterol, Calculated 77 < 100 Mean Corpuscular Hemoglobin 31.2 25.9-32.7 Mean Corpuscular Hemoglobin Concent 33.0 30.8-34.3 Mean Corpuscular Volume 94.7 80.9-99.0 Mean Platelet Volume 11.1 8.9-12.4 Platelet Count 290 155-360 Potassium Level 3.6 3.5-5.1 RDW Coefficient of Variation 13.6 11.7-14.4 Red Blood Count 3.94 3.90-5.40 Sodium Level 139 136-145 Total Bilirubin 0.6 0.2-1.0 Total Protein 6.8 6.4-8.2 Triglycerides Level 120 <150 White Blood Count 6.4 3.1-10.7 Laboratory test 11/04/2015 N2N/CCD Import Inr International 2.2 High 0.9- 1.1 finding Normalized Ratio Prothrombin Time 24.2 High 12.1-14.9 Laboratory test 10/17/2015 N2N/CCD Import [employer] 1.8 High 0.9- 1.1 finding Normalized Ratio Prothrombin Time 20.9 High 12.1-14.9 Protime 03/30/2010 N2N/CCD Import Inr 1.9 High 0.8-1.2 42 Protime 22.9 s High 11.7-15.1 Protime 03/27/2010 N2N/CCD Import Inr 1.7 High 0.8-1.2 43 Protime 20.7 s High 11.7-15.1 Protime 03/23/2010 N2N/CCD Import Inr 1.4 High 0.8-1.2 44 Protime 18.0 s High 11.7-15.1 Protime 03/20/2010 N2N/CCD Import Inr 1.6 High 0.8-1.2 45 Protime 19.3 s High 11.7-15.1 Protime 03/16/2010 N2N/CCD Import Inr 1.8 High 0.8-1.2 46 Protime 21.8 s High 11.7-15.1 Laboratory test finding 08/30/2007 N2N/CCD Import Albumin 3.7 g/dL 3.5- 5.0 Alkaline Phosphatase 104 U/L 50-136 Anion Gap 9 mEq/L 8-16 BUN 15 mg/dL 5-23 BUN/Creat 15.0 Bilirubin,Direct 0.2 mg/dL 0.1-0.4 Bilirubin,Indirect 0.4 mg/dL 0.0-0.9 Bilirubin,Total 0.6 mg/dL 0.2-1.2 Calcium 9.1 mg/dL 8.5-10.1 Carbon Dioxide 32 mEq/L 21-32 Chloride 107 mEq/L 98-107 Cholesterol 205 mg/dL High 120-200 Creatinine 1.0 mg/dL 0.5-1.4 Glucose 88 mg/dL 76-115 HDL Cholesterol 52 mg/dL 32-96 LDL-Cholesterol 121 mg/dL 62-185 Potassium 4.2 mEq/L 3.5-5.1 SGPT/Alt 31 U/L 30-65 Sgot/Ast 17 U/L 16-40 Sodium 144 mEq/L 136-145 Total Protein 6.6 g/dL 6.3-8.0 Triglycerides 159 mg/dL 0-210 BUN And Creatinine 07/18/2006 N2N/CCD Import BUN 15 mg/dL 5-23 BUN/Creat 16.6 Creatinine 0.9 mg/dL 0.5-1.4 Laboratory test finding 07/18/2006 N2N/CCD Import Albumin 3.7 g/dL 3.5- 5.0 Alkaline Phosphatase 96 U/L 50-136 Anion Gap 12 mEq/L 8-16 Bas% 1.1 % High 0.1-1.0 Baso # 0.1 K/uL 0.1-0.2 Bilirubin,Direct 0.1 mg/dL 0.1-0.4 Bilirubin,Indirect 0.2 mg/dL 0.0-0.9 Bilirubin,Total 0.3 mg/dL 0.2-1.2 Calcium 9.3 mg/dL 8.5-10.1 Carbon Dioxide 27 mEq/L 21-32 Chloride 103 mEq/L 98-107 Cholesterol 175 mg/dL 120-200 Eo% 5.8 % High 0.0-5.0 Eos # 0.4 K/uL 0.0-0.5 Glucose 101 mg/dL 76-115 Glycohemoglobin A1c 5.8 % 4.8-6.0 47 HDL Cholesterol 51 mg/dL 32-96 Hematocrit 37.6 % 34.0-46.0 Hemoglobin 12.7 gm/dL 11.5-15.5 LDL-Cholesterol 92 mg/dL 62-185 Nile# 0.2 0.0-1.5 Nile% 2.4 % 0.0-4.0 Lymph # 0.5 K/uL Low 1.2-4.0 Lymph % 8.4 % Low 17.0-56.0 Mean Cell Volume 96.8 fL High 80.0-96.0 Mean Corpuscular HGB 32.5 pg 27.0-33.0 Mean Corpuscular HGB Conc 33.6 g/dL 31.7-36.0 Mean Platelet Volume 6.5 fl Low 6.6-10.6 [place] # 0.5 K/uL 0.0-0.6 [place] % 7.4 % 0.0-10.0 Neut# 4.7 K/uL 1.8-7.0 Neut% 74.8 % High 33.0-73.0 Platelet Count 423 K/uL High 150-400 Potassium 3.8 mEq/L 3.5-5.1 Red Blood Count 3.89 M/uL Low 3.90-5.20 Red Cell Distri Width %CV 14.1 % 11.6-15.8 SGPT/Alt 37 U/L 30-65 Sgot/Ast 22 U/L 16-40 Sodium 138 mEq/L 136-145 Total Protein 6.7 g/dL 6.3-8.0 Triglycerides 159 mg/dL 0-210 White Blood Count 6.3 K/uL 3.4-10.5 BUN And Creatinine 02/04/2006 N2N/CCD Import BUN 18 mg/dL 5-23 48 Creatinine 0.9 mg/dL 0.5-1.4 Laboratory test finding 02/04/2006 N2N/CCD Import Albumin 3.8 g/dL 3.5- 5.0 Alkaline Phosphatase 101 U/L 50-136 Bilirubin,Direct 0.1 mg/dL 0.1-0.4 Bilirubin,Indirect 0.5 mg/dL 0.0-0.9 Bilirubin,Total 0.6 mg/dL 0.2-1.2 SGPT/Alt 30 U/L 30-65 Sgot/Ast 18 U/L 16-40 Total Protein 6.8 g/dL 6.3-8.0 1 BONE BLOCK RIGHT SHOULDER [id number] 2 RARE WHITE BLOOD CELLS 3 NO ORGANISMS SEEN 4 NO GROWTH: FINAL REPORT 5 RC DEFICIENCY RIGHT SHOULDER 6 SITTING UP IN BED 7 METHICILLIN RESISTANT S.AUREUS 8 ACUTE COLITIS, GI BLEEDING 9 Note: Persistent reduction for 3 months or more in an eGFR <60 mL/min/1.73 m2 defines CKD. Patients with eGFR values >/=60 mL/min/1.73 m2 may also have CKD if evidence of persistent proteinuria is present. The original MDRD equation for estimated GFR is not valid for patients less than 18 years of age. Additional information may be found at [email or web address]. 10 Note: Persistent reduction for 3 months or more in an eGFR <60 mL/min/1.73 m2 defines CKD. Patients with eGFR values >/=60 mL/min/1.73 m2 may also have CKD if evidence of persistent proteinuria is present. The original MDRD equation for estimated GFR is not valid for patients less than 18 years of age. Additional information may be found at [email or web address]. 11 NEGATIVE FOR C. DIFFICILE TOXIN A/B. CORRELATE RESULTS WITH CLINICAL CONDITION. 12 Note: Persistent reduction for 3 months or more in an eGFR <60 mL/min/1.73 m2 defines CKD. Patients with eGFR values >/=60 mL/min/1.73 m2 may also have CKD if evidence of persistent proteinuria is present. The original MDRD equation for estimated GFR is not valid for patients less than 18 years of age. Additional information may be found at [email or web address]. 13 Instrument flagged sample for slide review. Less than 10% Bands seen, no other immature WBC's seen. RBC morphology essentially normal. Platelet estimate=NORMAL 14 R/O SEPTIC JOINT UTI 15 Note: Persistent reduction for 3 months or more in an eGFR <60 mL/min/1.73 m2 defines CKD. Patients with eGFR values >/=60 mL/min/1.73 m2 may also have CKD if evidence of persistent proteinuria is present. The original MDRD equation for estimated GFR is not valid for patients less than 18 years of age. Additional information may be found at [email or web address]. 16 Comments to air table operator: DOSING PER PHARMACY OK To Combine Draws Per RN 17 Instrument flagged sample for slide review. Less than 10% Bands seen, no other immature WBC's seen. RBC morphology essentially normal. Platelet estimate=MARKED INCREASE 18 NEGATIVE FOR C. DIFFICILE TOXIN A/B. CORRELATE RESULTS WITH CLINICAL CONDITION. 19 Note: Persistent reduction for 3 months or more in an eGFR <60 mL/min/1.73 m2 defines CKD. Patients with eGFR values >/=60 mL/min/1.73 m2 may also have CKD if evidence of persistent proteinuria is present. The original MDRD equation for estimated GFR is not valid for patients less than 18 years of age. Additional information may be found at [email or web address]. 20 Instrument flagged sample for slide review. Less than 10% Bands seen, no other immature WBC's seen. RBC morphology essentially normal. Platelet estimate=MARKED INCREASE 21 URINE, CLEAN CATCH 22 MIXED URETHRAL MELANIE 23 Instrument flagged sample for slide review. Less than 10% Bands seen, no other immature WBC's seen. RBC morphology essentially normal. Platelet estimate=SLIGHT INCREASE 24 Note: Persistent reduction for 3 months or more in an eGFR <60 mL/min/1.73 m2 defines CKD. Patients with eGFR values >/=60 mL/min/1.73 m2 may also have CKD if evidence of persistent proteinuria is present. The original MDRD equation for estimated GFR is not valid for patients less than 18 years of age. Additional information may be found at [email or web address]. 25 Comments to air table operator: DOSING PER PHARMACY 26 WRY NECK 27 Note: Persistent reduction for 3 months or more in an eGFR <60 mL/min/1.73 m2 defines CKD. Patients with eGFR values >/=60 mL/min/1.73 m2 may also have CKD if evidence of persistent proteinuria is present. The original MDRD equation for estimated GFR is not valid for patients less than 18 years of age. Additional information may be found at [email or web address]. 28 Instrument flagged sample for slide review. Less than 10% Bands seen, no other immature WBC's seen. RBC morphology essentially normal. Platelet estimate=WITHIN REFERENCE RANGE 29 R/O SEPTIC JOINT UTI 30 NO GROWTH: FINAL REPORT 31 NO GROWTH: FINAL REPORT 32 NO GROWTH: FINAL REPORT 33 NO GROWTH: FINAL REPORT 34 Negative <20 Weak positive 20 - 39 Moderate positive 40 - 59 Strong positive >59 Performed at: [facility] [id number] Discharge Rn: Levy Lopez MD, Phone: [phone] 35 WRY NECK 36 Tests: anti ccp Instructions: 37 URINE, CLEAN CATCH 38 Note: Persistent reduction for 3 months or more in an eGFR <60 mL/min/1.73 m2 defines CKD. Patients with eGFR values >/=60 mL/min/1.73 m2 may also have CKD if evidence of persistent proteinuria is present. The original MDRD equation for estimated GFR is not valid for patients less than 18 years of age. Additional information may be found at [email or web address]. 39 THERAPEUTIC INR RANGE: 2.0 - 3.0 DVT, Pulmonary embolus, prophylaxis against venous thrombosis or systemic embolization in high risk patients. 2.5 - 3.5 Mechanical heart valves 40 Right Acromian And Clavicle Hard copy of report to be sent by mail Report may be viewed in Clinical Review, or in [facility] under Medical Record Forms 41 Note: Persistent reduction for 3 months or more in an eGFR <60 mL/min/1.73 m2 defines CKD. Patients with eGFR values >/=60 mL/min/1.73 m2 may also have CKD if evidence of persistent proteinuria is present. The original MDRD equation for estimated GFR is not valid for patients less than 18 years of age. Additional information may be found at [email or web address]. 42 THERAPEUTIC INR RANGE: 2.0 - 3.0 DVT, Pulmonary embolus, prophylaxis against venous thrombosis or systemic embolization in high risk patients. 2.5 - 3.5 Mechanical heart valves 43 THERAPEUTIC INR RANGE: 2.0 - 3.0 DVT, Pulmonary embolus, prophylaxis against venous thrombosis or systemic embolization in high risk patients. 2.5 - 3.5 Mechanical heart valves 44 THERAPEUTIC INR RANGE: 2.0 - 3.0 DVT, Pulmonary embolus, prophylaxis against venous thrombosis or systemic embolization in high risk patients. 2.5 - 3.5 Mechanical heart valves 45 THERAPEUTIC INR RANGE: 2.0 - 3.0 DVT, Pulmonary embolus, prophylaxis against venous thrombosis or systemic embolization in high risk patients. 2.5 - 3.5 Mechanical heart valves 46 THERAPEUTIC INR RANGE: 2.0 - 3.0 DVT, Pulmonary embolus, prophylaxis against venous thrombosis or systemic embolization in high risk patients. 2.5 - 3.5 Mechanical heart valves 47 Current guidelines recommend a treatment goal of <7% for diabetic patients. This method will measure glycosylated hemoglobin variants, HbS, HbG, HbH, HbWayne , HbC, HbE, etc. Other hemoglobin- opathies may give incorrect results with this test. Note change in expected values for healthy individuals 48 Please call pt. "labs normal" Thank you Procedures Date Code Description Status 06/25/2018 07797 EKG-Tracing And Report Completed 04/15/2017 31497 Radiology, Shoulder: Two Views (Sso) Completed 03/05/2017 44814 Osteotomy Humerus Completed 03/05/2017 07509 Aromioplasty or Acromionectomy part w/wo coracoacromial Completed lig relea 01/14/2017 82724 EKG-Tracing And Report Completed 12/05/2016 64966 Radiology, Shoulder: Two Views (Sso) Completed 10/01/2016 42235 Radiology, Shoulder: Two Views (Sso) Completed 09/26/2016 62877 Radiology, Ankle Complete Completed 09/26/2016 12039 Radiology, Ankle Complete Completed 06/27/2016 77801 Radiology, Shoulder: Two Views (Sso) Completed 06/06/2016 86268 Radiology, Shoulder: Two Views (Sso) Completed 06/06/2016 41857 Radiology, Shoulder: Two Views (Sso) Completed 05/29/2016 44932 Arthroplasty Shoulder Total Completed 05/29/2016 32240 Arthroplasty Shoulder Total Completed 05/29/2016 37223 Arthroplasty Shoulder Total Completed 05/29/2016 52457 Arthroplasty Shoulder Total Completed 05/02/2016 99398 Radiology, Shoulder: Two Views (Sso) Completed 04/03/2016 35425464 Colonoscopy Completed 04/03/2016 11324 Colonoscopy With Biopsy Completed 01/17/2016 11420 EKG Interpretation And Report Only Completed 01/10/2016 70468 Claviculectomy;partial open Completed 01/10/2016 05848 Repair of ruptured musculotendinous (rotator cuff) open Completed 01/10/2016 50756 Claviculectomy;partial open Completed 01/10/2016 19625 Repair of ruptured musculotendinous (rotator cuff) open Completed 01/05/2016 04705 EKG-Tracing And Report Completed 09/27/2015 99804 EKG-Tracing And Report Completed 05/09/2015 05782 Asp./Injection major joint Completed 05/09/2015 18713 Radiology, Shoulder: Two Views (Sso) Completed 05/09/2015 72251 Radiology, Both Knees Standing Completed 05/09/2015 91308 Radiology, Shoulder: Two Views (Sso) Completed 05/09/2015 59431 Radiology, Both Knees Standing Completed 12/29/2014 03224 EKG-Tracing And Report Completed 05/27/2014 79221378 Colonoscopy Completed 03/31/2014 10912 Radiology, Distal Femur--Knee 1 Or 2 Views Completed 03/31/2014 09136 Radiology, Distal Femur--Knee 1 Or 2 Views Completed 03/19/2014 59688 EKG Interpretation And Report Only Completed 10/15/201266698 Aspiration/Injection joint Completed intermediate(wrist/ankle/elbow/olbursa 08/11/2012 76380 Anesthesia, Lower Arm Surgery Open/Surg Completed Arthroscopic/Endoscopic 06/08/2011 10348 Holter Monitor 24HR Inter/Report Completed 04/25/2011 72543 Echocardiogram Complete Completed 11/06/2010 31164 EKG Interpretation And Report Only Completed 03/09/2010 88326 Total Knee Arthroplasty medial&lateral compartments Completed w/wo recinos res 10/03/2009 Asp./Injection major joint Completed 05/16/2009 84554 Neuroplasty median nerve at carpal tunnel Completed 05/11/2009 97091 EKG Interpretation And Report Only Completed 04/04/2009 Asp./Injection major joint Completed 10/04/2008 Asp./Injection major joint Completed 04/05/2008 Asp./Injection major joint Completed 10/08/2007 Asp./Injection major joint Completed 04/02/2007 Asp./Injection major joint Completed 09/30/2006 Asp./Injection major joint Completed 04/15/2006 Asp./Injection major joint Completed 09/04/2005 32028 Total Knee Arthroplasty medial&lateral compartments Completed w/wo recinos res 05/09/2005 Asp./Injection major joint Completed 04/02/2005 Asp./Injection major joint Completed 11/09/2004 Asp./Injection major joint Completed 05/11/2004 Asp./Injection major joint Completed 11/10/2003 Asp./Injection major joint Completed 04/25/59 56362895 Colonoscopy Completed 04/25/49 60077446 Colonoscopy Completed Encounters Type Date Location Provider Dx Diagnosis Office Visit 06/25/2018 Cardiology Office Hawa Aguirre MD Z01.810 Encounter for 2:00p preprocedural cardiovascular examination I48.0 Paroxysmal atrial fibrillation I10 Essential (primary) hypertension E78.2 Mixed hyperlipidemia 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 Office Visit 07/17/2017 Orthopaedic Dario Z96.611 Presence of right 11:00a Office Bubba Ortega artificial shoulder joint Office Visit 02/25/2017 Orthopaedic Marcial Z01.818 Encounter for 9:15a Office MILDRED Elizondo other preprocedural examination Z01.818 Encounter for other preprocedural examination M75.121 Complete rotatr-cuff tear/ruptr of r shoulder, not trauma Z96.611 Presence of right artificial shoulder joint Z96.611 Presence of right artificial shoulder joint M75.121 Complete rotatr-cuff tear/ruptr of r shoulder, not trauma Office Visit 01/14/2017 11:20a Cardiology Office Hawa Aguirre I48.0 Paroxysmal atrial MD fibrillation Z79.01 USP (current) use of anticoagulants 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 shoulder Office Visit 10/01/2016 2:00p Orthopaedic Office Jordan Bishop M75.121 Complete M.D. 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 shoulder Office Visit 04/25/2016 10:15a Orthopaedic Office Delilah Salguero M25.511 Pain in right S., RPAC shoulder M75.41 Impingement syndrome of right shoulder Office Visit 04/11/2016 3:30p RASHEEDA Sparks, K55.031 Focal (segmental) acute ischemia of large intestine Office Visit 03/30/2016 9:30a Physical Medicine Steffanie Blackman75.121 Sonia & Infectious MD Amy rotatr-cuff Disease tear/ruptr of r shoulder, not trauma Office Visit 02/24/2016 8:30a Physical Medicine Dotty Blackman.121 Sonia & Infectious MD Amy rotatr-cuff Disease tear/ruptr of r shoulder, not trauma N39.0 Urinary tract infection, site not specified R54 Age-related physical debility Office Visit 01/05/2016 Cardiology Hawa Aguirre, Z01.810 Encounter for 10:30a Office MD preprocedural cardiovascular examination Q21.1 Atrial septal defect I48.0 Paroxysmal atrial fibrillation I10 Essential (primary) hypertension G45.9 Transient cerebral ischemic attack, unspecified 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 shoulder M75.121 Complete rotatr-cuff tear/ruptr of r shoulder, not trauma Office Visit 07/13/2015 10:45a Orthopaedic Office Delilah Salguero M25.511 Pain in right S., RPAC shoulder M75.41 Impingement syndrome of right shoulder Office Visit 05/30/2015 10:30a Orthopaedic Office Delilah Salguero M25.511 Pain in right S., RPAC shoulder M75.41 Impingement syndrome of right shoulder Office Visit 05/09/2015 10:45a Orthopaedic Office Delilah Salguero M25.511 Pain in right S., RPAC shoulder Z96.653 Presence of artificial knee joint, bilateral S43.421A Sprain of right rotator cuff capsule, initial encounter Office Visit 03/29/2015 9:00a Cardiology Office Hawa Aguirre, I48.0 Paroxysmal atrial MD fibrillation G45.9 Transient cerebral ischemic attack, unspecified Q21.1 Atrial septal defect I10 Essential (primary) hypertension Office Visit 12/29/2014 1:30p Cardiology Office Hawa Aguirre, 427.31 Atrial MD Fibrillation 794.31 Electrocardiogram (ECG) (EKG) Abnormal 435.9 TIA Ischemia Cerebral Transient Unspec Office Visit 03/31/2014 3:15p Orthopaedic Noemy V43.65 Knee Replacement Office Delilah Lopez, By Other Means [facility] 715.16 Osteoarthrosis Localized Prim Lower Leg V54.81 Aftercare Following Joint Replacement Office Visit 12/31/2013 3:45p Surgical Office Clau V76.51 Special Chu Rangel, Screening For M.D. Malignant Neoplasms Colon 562.10 Diverticulosis Colon W/O Hemorrhage Office Visit 09/10/2013 Surgical Office Jose Olguin6.51 Special 9:00a Chu Rangel, Screening For M.D. Malignant Neoplasms Colon Office Visit 06/18/2013 Orthopaedic Delilah Salguero 719.47 Pain Joint 8:15a Office S., RPAC Ankle & Foot 715.17 Osteoarthrosis Localized Prim Ankle & Foot 719.47 Pain Joint Ankle & Foot 715.17 Osteoarthrosis Localized Prim Ankle & Foot Office Visit 05/19/2013 9:00a Orthopaedic Office Delilah Salguero 719.47 Pain Joint S., RPAC Ankle & Foot 715.17 Osteoarthrosis Localized Prim Ankle & Foot 719.47 Pain Joint Ankle & Foot 715.17 Osteoarthrosis Localized Prim Ankle & Foot Office Visit 04/28/2013 2:45p Orthopaedic Office Delilah Salguero 719.47 Pain Joint S., RPAC Ankle & Foot 719.47 Pain Joint Ankle & Foot 715.17 Osteoarthrosis Localized Prim Ankle & Foot 715.17 Osteoarthrosis Localized Prim Ankle & Foot 719.47 Pain Joint Ankle & Foot 715.17 Osteoarthrosis Localized Prim Ankle & Foot Office Visit 04/16/2013 3:15p Orthopaedic Noemy V54.81 Aftercare Office Delilah Lopez, Following Joint RPAC Replacement V43.65 Knee Replacement By Other Means 715.16 Osteoarthrosis Localized Prim Lower Leg Plan of Treatment Future Appointment(s):06/09/2019 11:00 am - Hawa Aguirre MD at Cardiology Pvyqxn6506/25/2018 - Hawa Aguirre MDZ01.810 Encounter for preprocedural cardiovascular examinationComments:She will be at low risk for MACE. She is medically optimized and no additional cardiac testing is indicated at this time due to her good functional capacity and absence of any symptoms. Last echo done 2014 with normal LV function. She can stop Xarelto 3 days prior to surgery and resume therapy when clear from surgical standpoint without bridging. She has been in sinus and her cardio embolic risk is low and risk of bleeding with bridging outweighs risk of CVA in my opinion.I48.0 Paroxysmal atrial fibrillationComments:No symptomatic recurrences. ECG todays again shows sinus. She is bound to a lifelong OAC given h/o CVA. Watchman could be considered in future.I10 Essential (primary) hypertensionComments:Well controlled. No changes.E78.2 Mixed hyperlipidemiaComments:On statin. No side effects reported. 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 Will get labs from PCP regards renal function to ensure her dose does not need to be adjusted.AllFollow up:1 year Sooner appt if symptoms arise.
[2018-07-09] MEDS ORDERED: fentaNYL* 50 MCG/ML 2 ML VIAL (100 MCG VIAL) ONE (08:01)
[2018-07-09] MEDS ORDERED: Atracurium* 10 MG/ML 10 ML VIAL ONE (08:01)
[2018-07-09] MEDS ORDERED: KETAMINE HCL* 50 MG/ML 10 ML VIAL ONE (08:01)
[2018-07-09] MEDS ORDERED: Midazolam* 1 MG/ML 5 ML VIAL (5 MG) ONE (08:01)
[2018-07-09] MEDS ORDERED: Famotidine IV* 10 MG/ML 2 ML (20 mg) ONE (08:07)
[2018-07-09] MEDS ORDERED: Ondansetron ODT TAB* 4 MG ONE (08:08)
[2018-07-09] MEDS ORDERED: Dexamethasone TAB* 4 MG ONE (08:08)
[2018-07-09] MEDS ORDERED: Ropivacaine* 2 MG/ML 20 ML VIAL (0.2%) ONE (08:59)
[2018-07-09] MEDS ORDERED: Bupivacaine 0.5% SDV PF* 30ML VIAL ONE (11:38)
[2018-07-09] MEDS ORDERED: Lidocaine 2% PF * 5 ML VIAL ONE (11:38)
[2018-07-09] MEDS ORDERED: Glycopyrrolate IV* 0.2 MG/ML 1 ML VIAL ONE (12:14)
[2018-07-09] MEDS ORDERED: Neostigmine Methylsulfate* 1 MG/ML 10 ML VIAL (1 mg/ml) ONE (12:14)
[2018-07-09] MEDS ORDERED: Metoprolol Tartrate IV* 1 MG/ML 5 ML VIAL ONE (12:34)
[2018-07-09] MEDS ORDERED: oxyCODONE/Acetamin 5/325 MG* TAB PO PRN ×2 (12:53)
[2018-07-09] MEDS ORDERED: Morphine VIAL* 4 MG/ML VIAL (1 ml vial) IV PRN (12:53)
[2018-07-09] MEDS ORDERED: Temazepam CAP* 15 MG PO PRN (12:53)
[2018-07-09] MEDS ORDERED: Polyethylene Glycol 3350* 17 GM PACKET PO PRN (12:53)
[2018-07-09] MEDS ORDERED: oxyCODONE TAB* 5 MG TAB PO PRN (12:53)
[2018-07-09] MEDS ORDERED: Bisacodyl SUPP* 10 MG SUPP PR PRN (12:53)
[2018-07-09] MEDS ORDERED: diPHENhydraMINE IV* 50 MG/ML 1 ml VIAL (BENADRYL) IV PRN (12:53)
[2018-07-09] MEDS ORDERED: Ondansetron INJ* 2 MG/ML VIAL IV PRN (12:53)
[2018-07-09] MEDS ORDERED: Ondansetron ODT TAB* 4 MG PO PRN (12:53)
[2018-07-09] MEDS ORDERED: Magnesium Hydroxide LIQ* 30 ML UDC PO PRN (12:53)
[2018-07-09] MEDS ORDERED: diPHENhydraMINE PO* 25 MG PO PRN (12:53)
[2018-07-09] MEDS ORDERED: traMADol TAB* 50 MG PO PRN (12:53)
[2018-07-09] MEDS ORDERED: Cyclobenzaprine TAB* 10 MG PO PRN (12:53)
[2018-07-09] MEDS ORDERED: Acetaminophen TAB* 325 MG PO SCH (13:00)
[2018-07-09] MEDS ORDERED: Vancomycin per Pharmacy* NOTE FOLLOW UP SCH (14:00)
[2018-07-09] MEDS: Lactated Ringers 1000 ML Bag* 1,000 ML IV SCH (15:19)
[2018-07-09] MEDS: Acetaminophen TAB* 325 MG PO SCH (17:16)
[2018-07-09] MEDS: Cetirizine* 10 MG TAB PO SCH (17:16)
[2018-07-09] MEDS: Atorvastatin* 10 MG TAB PO SCH (17:16)
[2018-07-09] MEDS ORDERED: Vancomycin(*) 1,250 MG IV x ONCE IVPB SCH ×2 (21:00)
[2018-07-09] MEDS ORDERED: Melatonin 3 MG TAB PO PRN (21:03)
[2018-07-09] MEDS: Docusate CAP* 100 MG PO SCH (21:14)
--- NOTE | 2018-07-09 21:26 | OP ---
CC: PCP, Nick Morel MD * DATE OF OPERATION: 07/09/18 - ROOM #333 DATE OF : 42 SURGEON: Kristin Pastor MD ASSISTANTS: 1. MILDRED Lassiter 2. CHRISSY Jackson ANESTHESIOLOGIST: Dr. Adams ANESTHESIA: General with interscalene block. PRE-OP DIAGNOSIS: Right shoulder failed reverse shoulder arthropathy. POST-OP DIAGNOSIS: Right shoulder failed reverse shoulder arthropathy. OPERATIVE PROCEDURE: Right shoulder revision of reverse shoulder arthroplasty. INDICATIONS: Maribell Stiles is a 77-year-old female who has had multiple surgeries on her right shoulder, rotator cuff repairs and then she had reverse replacement done approximately 2 years ago. She had persistent issues and difficulty with forward flexion, underwent an open aggressive subacromial decompression and ostectomy of the greater tuberosity. She continued to struggle and she had persistent pain. She had unacceptable x-rays and poor function with forward flexion and abduction to about 15 degrees. She had persistent pain. Labs were negative. The suggestion was for revision shoulder arthroplasty. After extensive discussion of risks and benefits to surgery, she has elected to proceed. Risks include, but not limited to fracture, failure of the hardware, need to convert it to a lety, conversion to a cemented spacer, bleeding, infection; damage to nerves, vessels, surrounding structures; wound nonhealing, persistent pain, need for further surgery, scarring, stiffness, incomplete relief of symptoms, risks of anesthesia, dislocation, need for further surgery, incomplete relief of symptoms, risks of DVT. She has elected to proceed. COMPLICATIONS: None. SPECIMENS: There were samples sent for Gram stain and culture. The Gram stain results were negative. OUTPUT: Drain x1 as well as Gillis catheter. ESTIMATED BLOOD LOSS: 200 cc. IMPLANTS USED: Aequalis Perform reversed half wedge augment baseplate 25 mm and size 36 mm standard glenosphere with a June reunion humeral insert 36 +8 and 36 + 4 constrained liner. DESCRIPTION OF PROCEDURE: The patient was greeted in the preoperative area by the attending surgeon. Correct extremity was marked, and consent was confirmed. The patient underwent interscalene nerve block by the anesthesiologist. After which, she was brought back to the operating suite where she was placed supine position on the operating table and she underwent general anesthesia and endotracheal intubation. After which, she was placed in lazy beach chair position. The right shoulder was draped free. The shoulder was prepped and draped in the usual sterile fashion beginning with chlorhexidine soap, scrub, and alcohol wipe and a final prep with ChloraPrep. A Gillis catheter was placed. After appropriate surgical pause indicating side, site, procedure, and administration of antibiotics, a 15-blade was used to make a deltopectoral incision. The soft tissues were carefully dissected to expose the deltoid. There were significant adhesions due to her previous multiple surgeries, therefore, care was taken to expose the layers. Deltopectoral interval was identified, although it had been scarred, identified proximally and distally. As the interval was identified, the humeral shaft was identified. Care was taken to release the scar tissue that was present. Then the implant was identified. Some portion of the pec tendon proximal 1 cm was then released. There appeared to be CA ligament that was still present that was released. Care was taken to avoid any injury to the short head of the biceps tendon. A Hohmann retractor was placed above the corticoid. Significant adhesions were under the deltoid that were carefully released. This allowed for mobilization of the humeral head. As this was done, the capsule was carefully removed and there was obvious metallosis that was present. The capsule and tissue as well as the fluid that was released was then sent for stat Gram-stain culture including holding the sample for several weeks to check for P. acnes. The capsule was released in its entirety. Care was taken to make sure there was no damage to the neurovascular structures, however, the nerve was not specifically looked for . The obvious metallosis was then carefully removed in its entirety. The glenohumeral joint was then visualized and it was obvious that the glenosphere had dislocated and was mobile. The shoulder was then dislocated. The head was brought out with this and placed in the back table. The stem appeared to be well fixed but there was deformity from previous resection. The poly was worn. The metal was even worn and there was obvious metal fragment and debris everywhere. This is was then debrided back. The 2 prong device was then used to disengage the tray from the stem. There was obviously again metal debris that was present everywhere, the capsule and pseudocapsule were then also carefully removed in its entirety but removed posteriorly, superiorly, anteriorly. The glenoid was also visualized then and that was obviously loose as well. The screws were then removed in their entirety. There was no broken fragments remaining and the baseplate was also removed. Again, there was significant metal debris behind this. There was also an obvious defect as the glenoid implant was placed too superiorly. There was obvious defect from notching that was present. The soft tissues were carefully removed. The the wounds were then copiously irrigated. Care was taken to try to remove all the areas of metal debris. At this point, the glenoid bone was found to have a good quality. There was no fracture that was present and decision was made to try to use a glenosphere that had augmentation capabilities and try to inferiorize it if possible. Trials were then brought up from [employer]. The loose debris was removed and then the [place] system was brought because it has more options. An augment half wedge guide was then placed and found to be seating pretty appropriately. The centered drill bit 2.5 guidewire was drilled bicortically. At this point, the reaming began. The first reamer was then placed and the half wedge reamer was then done and this allowed for gentle decortication. The wounds were then irrigated again. A centered 8 mm drill bit was then drilled and the decision was made to proceed with the 6.5 mm centered screw. Therefore, the drill bit was placed inferiorly. Care was taken to make sure this is more inferiorly placed. It was drilled and then tapped and the appropriate 6.5 mm screw was then placed on the back table into the augmented baseplate. This was then placed by the surgeon with care to counter torque and allow for no torque of the actual augment baseplate. The screw was placed with excellent purchase. The baseplate was found to be well sited. Wound was irrigated again. At this point, 2 interlocking screws superiorly and inferiorly were placed. Anteriorly and posteriorly, the bone quality was poor from having previously been drilled and very shallow; therefore, the decision was made to just secure it superiorly and inferiorly. The size 36 well centered base plate was then chosen and then impacted into position and the thought was that she would be lateralized and have a larger glenosphere, so that there was no issue with notching. Once this was placed and was in good position, the attention was directed to the humerus again. The humerus was dislocated, again the stem was checked by using the broaching handle and it was found to be well seated and cannot be removed. The trial was then placed to the centered baseplate beginning with a 4 mm poly and subsequent trialing began and a size 8 mm was chosen. The humerus remained [place] devices. Decision was made to do a constrained implant because of fear of the patient's risk of dislocation, although she had a slight amount of shuck with the standard 8 and this constrain was chosen. Intraoperative images were then obtained, showed that the shoulder was adequately reduced, there was no evidence of notching. The final implants were chosen. Wound were then irrigated and again one more check to make sure that there was no metal debris. The final tray and liner were then impacted by the attending surgeon, then impacted on to the humerus and then shoulder was reduced, taken through range of motion. Forward flexion to about 145, abduction to 90, external rotation to about 70, internal rotation to the buttocks, with appropriate amount of shuck and appropriate difficulty with reduction and dislocation. The wounds were then copiously irrigated with sterile saline. An intraarticular drain was then placed and the deltopectoral interval was closed with #2 Ethibond in interrupted fashion. The wounds were irrigated again. The skin was skin was closed in layers with 3-0 Monocryl. Sterile dressings were applied. A Cryo/ Cuff and UltraSling were applied. She was awoken from anesthesia and transferred to the PACU in stable condition. POSTOPERATIVE PLAN: She will be nonweightbearing. She will be admitted for at least 24 hours for observation and drain will be pulled on postop day 1. DVT prophylaxis, she will go back on her Xarelto starting tomorrow. She will be on Lovenox today. She will need 24 hours of postoperative antibiotics. We will follow her cultures to make sure there is no evidence of infection. She will start therapy tomorrow. [id number]/[facility] #: [id number] [facility]ITALDarwin
--- NOTE | 2018-07-10 00:15 | CONS ---
CC: Dr. Morel; Kristin Pastor MD * CONSULTATION REPORT: DATE OF CONSULT: PRIMARY CARE PHYSICIAN: Dr. Morel. ORTHOPEDIC SURGEON: Kristin Pastor MD REQUESTING PHYSICIAN FOR CONSULTATION: Kristin Pastor MD REASON FOR CONSULTATION: Management of medical comorbidities. HISTORY OF PRESENT ILLNESS: This is a 77-year-old female with a past medical history of hypertension; paroxysmal AFib, on anticoagulation; and a history of a CVA, who was admitted today for elective surgery on her right shoulder for revision of her right total shoulder reverse. Patient states this is her 4th surgery. She has had issues after being in rehab for a broken ankle many years ago where she initially pulled her ligament in her right shoulder. She had repair and then the ligament repair failed. She had a revision, replacement and then she had impingement of her shoulder for her 3rd surgery. She states this is her 4th and last surgery on her right shoulder. She states she underwent the procedure well. She denies any nausea, vomiting. No abdominal pain. No chest pain. No shortness of breath. She states her pain is well controlled. She is currently sipping on clear liquids. The patient states her blood pressure has been well controlled and that she is in and out of her atrial fibrillation. Otherwise, review of systems is negative. PAST MEDICAL HISTORY: 1. Hypertension. 2. Paroxysmal atrial fibrillation, on anticoagulation. 3. Hyperlipidemia. 4. Seasonal allergies. PAST SURGICAL HISTORY: As mentioned, this is patient's 4th surgery on her right shoulder, this is a revision of her right total shoulder reverse. HOME MEDICATIONS: 1. Ibuprofen 600 mg p.o. b.i.d. 2. Refresh Optive eye drops 1 drop both eyes 4 times a day as needed. 3. Amlodipine 2.5 mg p.o. in the morning. 4. Multivitamin p.o. daily. 5. Latanoprost 1 drop both eyes at bedtime. 6. Cranberry 1 tablet p.o. in the morning. 7. Calcium carbonate/vitamin D3 one tablet in the evening. 8. VESIcare 5 mg p.o. in the morning. 9. Xarelto 15 mg p.o. in the evening. 10. Altace 5 mg p.o. in the morning. 11. Xyzal 5 mg p.o. daily. 12. Hydrochlorothiazide 12.5 mg p.o. in the morning. 13. Lipitor 10 mg p.o. daily. 14. Cilium 1 dose p.o. b.i.d. 15. Flexeril 10 mg p.o. 4 times a day as needed. Hospital medications are: 1. Tylenol 975 mg scheduled t.i.d. 2. Amlodipine 2.5 mg p.o. in the morning. 3. Lipitor 10 mg daily in the evening. 4. Dulcolax suppository as needed. 5. Zyrtec 10 mg in the evening. 6. Cyclobenzaprine 5 mg p.o. t.i.d. as needed. 7. Diphenhydramine 25 mg q.6 hours as needed for itching. 8. Diphenhydramine 25 mg p.o. q.6 hours as needed for itching. 9. Colace 100 mg p.o. b.i.d. 10. Hydrochlorothiazide 12.5 mg p.o. daily. 11 Lactulose 30 ml p.o. q.6 hours as needed. 12. Lactated Ringers 100 mL an hour. 13. Magnesium hydroxide 30 mL q.6 hours as needed. 14. Morphine 2 mg q.2 hours as needed. 15. Zofran 4 mg p.o. q.6 hours p.r.n. 16. Oxycodone 10 mg q.4 hours as needed. 17. Oxycodone/acetaminophen 1 tablet p.o. q.4 hours as needed. 18. Oxycodone/acetaminophen 2 tablets p.o. q.4 hours as needed. 19. MiraLAX 17 g p.o. daily as needed. 20. Ramipril 5 mg p.o. daily. 21. Rivaroxaban 50 mg p.o. in the evening. 22. VESIcare 5 mg p.o. in the morning. 23. Temazepam 50 mg p.o. at bedtime as needed. 24. Tramadol 50 mg q.6 hours as needed. 25. Vancomycin. ALLERGIES: MORPHINE, ENVIRONMENTAL ALLERGIES. FAMILY HISTORY: Reviewed and noncontributory. SOCIAL HISTORY: The patient lives in [place] with her daughter and her . She is independent of her ADLs. No history of tobacco, alcohol or illicit drug use. Her MOLST form states she is a DNR/DNI. REVIEW OF SYSTEMS: A 14-point review of systems is as mentioned in the HPI, otherwise negative. PHYSICAL EXAMINATION: Vitals: Temp 97.7, pulse rate 82, respiratory rate 16, oxygen saturation is 96% on room air, blood pressure 110/43. General: In no acute distress, resting comfortably. HEENT: Head is normocephalic. Pupils equal and reactive, anicteric. Oropharynx: Mucous membranes moist. Neck: Supple. No lymphadenopathy. Cardiac: Regular rate and rhythm. Soft systolic murmur heard throughout. Respiratory: Diminished breath sounds. No wheeze, rhonchi or rales. Abdomen: Soft, nontender, nondistended. Extremities: SCDs in place. No cyanosis, clubbing or edema. Her right upper extremity is immobilized with the sling with an ice pack dressing wrap. It is clean, dry, and intact. Her hand is warm with good mobility and good capillary refill. Neurologic: Alert and oriented x3. No gross focal neurologic deficits. ASSESSMENT: This is a 77-year-old female with a past medical history of hypertension, atrial fibrillation on anticoagulation, presented to the hospital for her fourth shoulder surgery with Dr. Pastor, which involved a revision right total shoulder reverse. 1. Revision right shoulder total reverse. Management per surgical service. 2. Hypertension. Her blood pressure is on the low normal side this evening postoperatively. I am going to hold her morning hydrochlorothiazide, as she is not taking in very much p.o. at this time and I will resume it on 07/11/18 if she remains here and her blood pressure comes up more. Continue her ramipril and her amlodipine. 3. Paroxysmal atrial fibrillation. The surgical service has resumed her Xarelto. 4. Hyperlipidemia. She is continued on her Lipitor. 5. Allergies. Continue on her allergy medications. 6. Pain from surgery. She is on pain meds including a bowel regimen. 7. I did discontinue her temazepam as this may increase adverse reaction in the elderly population and I will replace this with melatonin at bedtime and recommend discontinuing the Benadryl as soon as possible, as this can also cause increase in adverse reaction in the elderly population. The patient has blood work scheduled for tomorrow. We will follow up with that as well. She will begin PT and OT and the patient states she is planning to be discharged to home that would be the plan if PT and OT agree with that as well as Dr. Pastor. The patient would discuss to ensure that her safety being on anticoagulation is not a concern being that she may be a high fall risk now with the shoulder surgery and discuss the factors of being on anticoagulation if the benefits still outweigh the risks at this point. Thank you for the consultation. We will follow along closely. PATIENT TIME: Greater than 30 minutes was spent doing the consultation, more than half the time spent in direct patient contact. [id number]/[facility] #: [id number] SHIRA
[2018-07-10] MEDS: Acetaminophen TAB* 325 MG PO SCH ×3 (01:09→17:22)
[2018-07-10] MEDS: Lactated Ringers 1000 ML Bag* 1,000 ML IV SCH (02:26)
[2018-07-10 06:43] LABS: Hematocrit 20 % (35-47); Hemoglobin 6.7 g/dl (12.0-16.0); Mean Platelet Volume 8.1 fL (7.4-10.4); Platelet Count 340 10^3/ul (150-450)
[2018-07-10 07:02] LABS: Potassium 4.4 mmol/L (3.5-5.0)
[2018-07-10 07:08] LABS: EGFR African American 59.1 (>60); EGFR Non-African American 48.8 (>60)
[2018-07-10] MEDS: amLODIPine TAB* 5 MG PO SCH (08:29)
[2018-07-10] MEDS: CMCS: Solifenacin(NF) 5 MG TAB PO SCH (08:29)
[2018-07-10] MEDS: Ramipril CAP* 5 MG PO SCH (08:29)
[2018-07-10] MEDS: Docusate CAP* 100 MG PO SCH ×2 (08:29→20:56)
[2018-07-10] MEDS ORDERED: Hydrochlorothiazide TAB* 25 MG PO SCH (09:00)
--- NOTE | 2018-07-10 09:44 | PN ---
Progress Note - Progress Note Date of Service: 07/10/18 SOAP: Subjective: []Pt seen at bedside. She feels well. Denies CP, SOB, dizziness, nausea. Objective: [] General: NAD RUE: Drain removed from right shoulder, tip intact and tolerated well. Mild bruising of the axilla without induration. Wrist flexion and extension intact. Thumbs up, okay sign both intact. Sensation intact to light touch throughout the RUE. Capillary refill less than two seconds distally, radial pulse 2+ Assessment: []POD 1 right shoulder revision of reverse arthoplasty Plan: []NWB RUE, shoulder PROM only no FF or abd past 90 no ER past 25, ok AROM elbow wrist and hand 1 unit pRBC Repeat sodium tomorrow Vital Signs Temp 97.6 F 07/10/18 03:34 Pulse 82 07/10/18 03:34 Resp 20 07/10/18 08:52 BP 119/49 07/10/18 03:34 Pulse Ox 94 07/10/18 04:42 Intake & Output 07/09/18 07/10/18 07/10/18 18:59 06:59 18:59 Intake Total 1710 2245 Output Total 550 1650 Balance 1160 595 Weight 164 lb 12.8 oz Intake: IV Fluids 1650 1275 LR 1400 980 VANCOMYCIN 1250MG IN 250 250ML NS abx - vanco 295 Oral 60 970 Output: Gillis 550 1650 Laboratory Last Values Hgb 6.7 g/dl (12.0-16.0) L 07/10/18 06:28 Hct 20 % (35-47) L 07/10/18 06:28 Plt Count 340 10^3/ul (150-450) 07/10/18 06:28 MPV 8.1 fL (7.4-10.4) 07/10/18 06:28 Sodium 132 mmol/L (135-145) L 07/10/18 06:28 Potassium 4.4 mmol/L (3.5-5.0) 07/10/18 06:28 Chloride 102 mmol/L (101-111) 07/10/18 06:28 Carbon Dioxide 25 mmol/L (22-32) 07/10/18 06:28 Anion Gap 5 mmol/L (2-11) 07/10/18 06:28 BUN 24 mg/dL (6-24) 07/10/18 06:28 Creatinine 1.09 mg/dL (0.51-0.95) H 07/10/18 06:28 Est GFR ( Amer) 59.1 (>60) 07/10/18 06:28 Est GFR (Non-Af Amer) 48.8 (>60) 07/10/18 06:28 BUN/Creatinine Ratio 22.0 (8-20) H 07/10/18 06:28 Glucose 120 mg/dL (70-100) H 07/10/18 06:28 Calcium 8.0 mg/dL (8.6-10.3) L 07/10/18 06:28
--- NOTE | 2018-07-10 11:54 | PN ---
Subjective Date of Service: 07/10/18 Interval History: Pt is receiving blood transfusion, 1U PRBC due to low H/H. She states that she feels well and that her pain has been well controlled with tylenol and tramadol. She reports a current pain of 2/10 and states that her pain has never gone beyond 4/10. She met with PT today, but was given only hand exercises, due to need for transfusion. Her catheter was removed approximately 30 minutes ago, and she has yet to urinate, but feels she doesn't have to yet. She has not had a BM; her last BM was yesterday morning prior to surgery. She is eating and drinking well. She states she has a cough in the morning, which she always has, due to nocturnal post-nasal drip. She also has RLE swelling during the day, which is chronic due to a fused ankle, and typically relieved with elevation. She denies CP, SOB, cannon, fever/chills, dizziness/lightheadedness, syncope, abdominal pain, n/v/d/c, pain or abnormal swelling in the lower extremities, calf tenderness. Objective Active Medications: Acetaminophen (Tylenol Tab*) 975 mg PO 0100,0900,1700 JAVY Amlodipine Besylate (Norvasc Tab*) 2.5 mg PO QAM JAVY Atorvastatin Calcium (Lipitor*) 10 mg PO QPM JAVY Bisacodyl (Dulcolax Supp*) 10 mg NE DAILY PRN Cetirizine HCl (Zyrtec*) 10 mg PO QPM JAVY Cyclobenzaprine HCl (Flexeril Tab*) 5 mg PO TID PRN Diphenhydramine HCl (Benadryl Iv*) 25 mg IV Q6H PRN Diphenhydramine HCl (Benadryl Po*) 25 mg PO Q6H PRN Docusate Sodium (Colace Cap*) 100 mg PO BID JAVY Lactated Ringer's (Lactated Ringers 1000 Ml Bag*) 1,000 mls @ 100 mls/hr IV PER RATE JAVY Lactulose (Lactulose*) 30 ml PO Q6H PRN Magnesium Hydroxide (Milk Of Magnesia Liq*) 30 ml PO Q6H PRN Melatonin (Melatonin) 3 mg PO BEDTIME PRN Morphine Sulfate (Morphine Vial*) 2 mg IV Q2H PRN Ondansetron HCl (Zofran Inj*) 4 mg IV Q6H PRN Ondansetron HCl (Zofran Odt Tab*) 4 mg PO Q6H PRN Oxycodone HCl (Roxycodone Tab*) 10 mg PO Q4H PRN Oxycodone/Acetaminophen (Percocet 5/325 Tab*) 1 tab PO Q4H PRN Oxycodone/Acetaminophen (Percocet 5/325 Tab*) 2 tab PO Q4H PRN Polyethylene Glycol/Electrolytes (Miralax*) 17 gm PO DAILY PRN Ramipril (Altace Cap*) 5 mg PO QAM JAVY Rivaroxaban (Xarelto(*)) 15 mg PO QPM JAVY Solifenacin (Vesicare(Nf)) 5 mg PO QAM JAVY Tramadol HCl (Ultram*) 50 mg PO Q6H PRN Vital Signs: Temp Pulse Resp BP Pulse Ox 98.4 F 78 20 112/51 94 07/10/18 07:25 07/10/18 07:25 07/10/18 08:52 07/10/18 07:25 07/10/18 08:00 Oxygen Devices in Use Now: None Appearance: Pt is sitting in chair, sling in place. She appear comfortable, in no acute distress. She is cooperative and appropriate. Eyes: No Scleral Icterus, PERRLA Ears/Nose/Mouth/Throat: NL Teeth, Lips, Gums, Clear Oropharnyx, Mucous Membranes Moist Neck: NL Appearance and Movements; NL JVP, Trachea Midline, No Thyroid Enlargement, Masses Respiratory: Symmetrical Chest Expansion and Respiratory Effort, Clear to Auscultation Cardiovascular: NL Sounds; No Murmurs; No JVD, RRR Abdominal: NL Sounds; No Tenderness; No Distention, No Hepatosplenomegaly Lymphatic: No Cervical Adenopathy Extremities: No Clubbing, Cyanosis, - - RLE with 1+ pitting edema; LLE with trace edema. Calves nontender to palpation, negative Miquel's. B/l pedal pulses intact. Skin: No Rash or Ulcers Neurological: Alert and Oriented x 3 Result Diagrams: 07/10/18 15:20 07/10/18 06:28 Microbiology and Other Data: Microbiology 07/09/18 10:35 Gram Stain - Final Body Fluid - Shoulder Right 07/09/18 10:35 Wound Gram Stain - Final Tissue - Other 07/09/18 10:35 Gram Stain - Final Wound - Shoulder Right Assess/Plan/Problems-Billing Assessment: Pt is a 77yof with PMHx HTN, HLD, paroxysmal AF, seasonal allergies who is s/p revision right shoulder total reverse. - Patient Problems (1) S/P shoulder surgery Comment: -POD1 with good pain control -Management per ortho team (2) Postoperative anemia Comment: -Denies SOB, fatigue, lightheaded/dizziness, syncope -1U PRBC running now -Repeat H/H at 1400 showed improvement to 8.8 (3) Atrial fibrillation Comment: -Continue Rivaroxaban (4) Hypertension Comment: -Pt slightly hypotensive, ? d/t acute postoperative anemia requiring transfusion -Continue ramipril, amlodipine -Continue to hold lasix (5) Hyperlipidemia Comment: -Continue atorvastatin (6) DVT prophylaxis Comment: -On rivaroxaban for AF (7) Do not resuscitate
[2018-07-10 15:34] LABS: Hematocrit 27 % (35-47); Hemoglobin 8.8 g/dl (12.0-16.0)
--- NOTE | 2018-07-10 16:37 | PN ---
Progress Note - Progress Note Date of Service: 07/10/18 Note: Pt seen and examined. Feeling better. S/p 1 unit RBC. Minimal pain. Family at bedside Temp Pulse Resp BP Pulse Ox 98.2 F 70 18 114/49 100 07/10/18 14:19 07/10/18 14:19 07/10/18 14:19 07/10/18 14:19 07/10/18 14:19 NAD. AAOx3. RUE: dressing in place. able to flex/ext digits. SILT grossly. brisk cap refill Xrays acceptable Laboratory Results - last 24 hr 07/10/18 07/10/18 07/10/18 06:28 06:28 06:28 Hgb 6.7 L Hct 20 L Plt Count 340 MPV 8.1 Sodium 132 L Potassium 4.4 Chloride 102 Carbon Dioxide 25 Anion Gap 5 BUN 24 Creatinine 1.09 H Est GFR ( Amer) 59.1 Est GFR (Non-Af Amer) 48.8 BUN/Creatinine Ratio 22.0 H Glucose 120 H Calcium 8.0 L Blood Type O Positive Antibody Screen Negative Crossmatch See Detail 07/10/18 15:20 Hgb 8.8 L Hct 27 L Plt Count MPV Sodium Potassium Chloride Carbon Dioxide Anion Gap BUN Creatinine Est GFR ( Amer) Est GFR (Non-Af Amer) BUN/Creatinine Ratio Glucose Calcium Blood Type Antibody Screen Crossmatch A/P s/p R revision reverse doing well. cont sling NWB. s/p 1 unit with good response will continue to monitor. continue xarelto potential d/c tomorrow
[2018-07-10] MEDS: Cetirizine* 10 MG TAB PO SCH (17:22)
[2018-07-10] MEDS: Atorvastatin* 10 MG TAB PO SCH (17:22)
[2018-07-10] MEDS ORDERED: Rivaroxaban TAB(*) 15 MG PO SCH (18:00)
[2018-07-11] MEDS: Acetaminophen TAB* 325 MG PO SCH ×2 (00:28→09:30)
[2018-07-11 05:42] LABS: Hematocrit 25 % (35-47); Hemoglobin 8.1 g/dl (12.0-16.0); Mean Platelet Volume 7.9 fL (7.4-10.4); Platelet Count 347 10^3/ul (150-450)
[2018-07-11 06:12] LABS: BUN/Creatinine Ratio 21.8 (8-20); Calcium 8.2 mg/dL (8.6-10.3); EGFR African American 58.4 (>60); EGFR Non-African American 48.3 (>60); Potassium 3.9 mmol/L (3.5-5.0)
[2018-07-11 09:09] VITALS: BP 134/59
[2018-07-11] MEDS: amLODIPine TAB* 5 MG PO SCH (09:28)
[2018-07-11] MEDS: CMCS: Solifenacin(NF) 5 MG TAB PO SCH (09:28)
[2018-07-11] MEDS: Docusate CAP* 100 MG PO SCH (09:28)
[2018-07-11] MEDS: Ramipril CAP* 5 MG PO SCH (09:29)
--- NOTE | 2018-07-11 10:13 | PN ---
Progress Note - Progress Note Date of Service: 07/11/18 SOAP: Subjective: [] Patient seen at bedside, doing well. Denies SOB, CP, palpitations. Feels ready to go home today. Wearing sling as insrtucted. Objective: [] Vital Signs Temp 98.2 F 07/11/18 07:57 Pulse 76 07/11/18 07:57 Resp 16 07/11/18 07:57 BP 134/59 07/11/18 09:08 Pulse Ox 97 07/11/18 07:57 Intake & Output 07/10/18 07/11/18 07/11/18 18:59 06:59 18:59 Intake Total 900 740 Output Total 890 1850 800 Balance 10 1110 -800 Intake: Oral 900 740 Output: Urine 400 1850 800 Gillis 490 Laboratory Results - last 24 hr 07/10/18 07/10/18 07/11/18 06:28 15:20 05:25 Hgb 8.8 L 8.1 L Hct 27 L 25 L Plt Count 347 MPV 7.9 Sodium Potassium Chloride Carbon Dioxide Anion Gap BUN Creatinine Est GFR ( Amer) Est GFR (Non-Af Amer) BUN/Creatinine Ratio Glucose Calcium Blood Type O Positive Antibody Screen Negative Crossmatch See Detail 07/11/18 05:25 Hgb Hct Plt Count MPV Sodium 137 Potassium 3.9 Chloride 106 Carbon Dioxide 26 Anion Gap 5 BUN 24 Creatinine 1.10 H Est GFR ( Amer) 58.4 Est GFR (Non-Af Amer) 48.3 BUN/Creatinine Ratio 21.8 H Glucose 96 Calcium 8.2 L Blood Type Antibody Screen Crossmatch Right shoulder dressings changed, old bloody drainage on distal dressings, wound dry/ benign Moving all digits well, sensation and circulation intact distally RUE new 4x4s and Tegaderm applied to incision Assessment: []s/p revision right reverse total shoulder arthroplasty POD #2 Plan: []Discharge home today Follow up next week as scheduled with Dr. Pastor Continue with sling, off for bathing/ skin care only
--- NOTE | 2018-07-11 14:27 | DS ---
AMENDED REPORT NOW INCLUDES COSIGNER DESIGNATION DISCHARGE SUMMARY: DATE OF ADMISSION: 07/09/18 DATE OF DISCHARGE: 07/11/18 ATTENDING PHYSICIAN: Dr. Pastor * (dictated by MILDRED Gray) ADMISSION DIAGNOSIS: Failed reverse right shoulder arthroplasty. DISCHARGE DIAGNOSES: 1. Failed reverse right shoulder arthroplasty. 2. Acute postoperative anemia secondary to surgical blood loss. SURGERY PERFORMED: Right shoulder revision of reverse shoulder arthroplasty. HOSPITAL COURSE: The patient is a 77-year-old female who has had previous multiple surgeries on the right shoulder including rotator cuff repairs and then a reverse total shoulder replacement done roughly 2 years ago at an outside facility. She had persistent issues with forward elevation and pain and underwent subacromial decompression and osteotomy with greater tuberosity without much improvement in her continued pain. It was felt that she would benefit from revision surgery of her shoulder arthroplasty and she elected to proceed. She was taken to the operating room under the care of Dr. Pastor on the date of 07/09/18. She tolerated the procedure well and left the operating room in stable condition. On postoperative day #1, her hemoglobin and hematocrit levels were down at 6.7 and 20. It was felt this may be in addition due to her Xarelto preoperatively. She was transfused with 1 unit of packed red blood cells on 07/10/18 and had much improved hemoglobin and hematocrit. She had no symptoms of dizziness, shortness of breath postoperatively. It was felt that she was stable medically and orthopedically for discharge to home on the date of 07/11/18. CONDITION ON DISCHARGE: Temperature was 98.2, pulse 76, respiratory rate 16, O2 saturation 97% on room air, BP 134/59. Her hemoglobin 8.1, hematocrit 25. Her right shoulder dressings were changed. Her incision has no drainage or evidence of infection, new 4x4, and Tegaderms applied. PLAN: Discharged to home, 07/11/18. She will continue with the right shoulder sling at all times except for skin care and bathing. She will continue with her Xarelto as per preop. She will follow up with Dr. Pastor next for her routine postoperative visit. She states that she does not need narcotic pain medications and will use Tylenol for pain management. MILDRED ASHBY [id number]/[facility] #: [id number] SHIRA
== END 2018-07-11 12:09 | disposition home or self-care (01) | DRG 315 ==
LOC: AA 07:27 → SSU 14:31
PROVIDERS: ADMIT Orthopaedic Surgery; ATTEND Orthopaedic Surgery
PROC: 0RPJ0JZ Removal of Synthetic Substitute from Right Shoulder Joint, Open Approach (ICD-10-PCS; 2018-07-09)
PROC: 0RNJ0ZZ Release Right Shoulder Joint, Open Approach (ICD-10-PCS; 2018-07-09)
PROC: 0RRJ00Z Replacement of Right Shoulder Joint with Reverse Ball and Socket Synthetic Substitute, Open Approach (ICD-10-PCS; principal; 2018-07-09 10:15)
PROC: 30233N1 Transfusion of Nonautologous Red Blood Cells into Peripheral Vein, Percutaneous Approach (ICD-10-PCS; 2018-07-10)
DX: T84.038A Mechanical loosening of other internal prosthetic joint, initial encounter (principal); D62 Acute posthemorrhagic anemia; I95.9 Hypotension, unspecified; I48.91 Unspecified atrial fibrillation; M25.511 Pain in right shoulder; I10 Essential (primary) hypertension; M19.90 Unspecified osteoarthritis, unspecified site; Z66 Do not resuscitate; E78.5 Hyperlipidemia, unspecified; J30.9 Allergic rhinitis, unspecified; M75.01 Adhesive capsulitis of right shoulder; X58.XXXA Exposure to other specified factors, initial encounter; Z79.01 Long term (current) use of anticoagulants; Z86.73 Personal history of transient ischemic attack (TIA), and cerebral infarction without residual deficits; Z79.899 Other long term (current) drug therapy; Z79.1 Long term (current) use of non-steroidal anti-inflammatories (NSAID); Z88.5 Allergy status to narcotic agent; Z82.49 Family history of ischemic heart disease and other diseases of the circulatory system; Z80.9 Family history of malignant neoplasm, unspecified
CPT/HCPCS: 36415; 80048; 85014; 85018; 85049; 86850; 86900; 86901; 86922; 87070; 87073; 87205; 88300; 88304; A9270-GY; C1713; C1776; G8978-GP-CJ; G8979-GP-CI; G8987-GO-CJ; G8988-GO-CJ; G8989-GO-CJ; J2250; J2710; J2795; J3010; J3370; J3490; J8540; P9040

== ENCOUNTER 2019-04-25 17:57 | Emergency (ER) | payer MEDICARE, BC ==
[2019-04-25 18:34] VITALS: BP 146/78
[2019-04-25] MEDS ORDERED: HYDROcodone/ACETAMIN 5-325 MG* 1 TAB PO ONE ×2 (18:46→19:59)
--- NOTE | 2019-04-25 18:46 | UC ---
Upper Extremity HPI - HPI Summary HPI Summary: 78 yo unable to flex her right elbow since falling directly onto it about 2 hours ago. Hx of a fib, takes xarelto, and ibuprofen is contraindicated. - History of Current Complaint Chief Complaint: UCUpperExtremity Stated Complaint: S/P FALL, RIGHT ARM INJURY Time Seen by Provider: 04/25/19 18:39 Hx Obtained From: Patient Onset/Duration: Sudden Onset, Lasting Hours Severity Initially: Severe Severity Currently: Severe Pain Intensity: 9 Character: Throbbing Aggravating Factor(s): Movement Alleviating Factor(s): Rest, Other: - extended arm most comfortable Associated Signs And Symptoms: Positive: Swelling Related History: Dominant Hand Right - Risk Factors Non-Orthopedic Risk Factor: Negative Septic Arthritis Risk Factor: Negative - Allergies/Home Medications Allergies/Adverse Reactions: Allergies Allergy/AdvReac Type Severity Reaction Status Date / Time morphine AdvReac Dizziness, Verified 04/25/19 18:34 nausea environmental Allergy Unknown Uncoded 04/25/19 18:34 Reaction Details PMH/Surg Hx/FS Hx/Imm Hx - Additional Past Medical History Additional PMH: glaucoma Cardiovascular History: Hypertension, Atrial Fibrillation - Surgical History Surgical History: Yes Surgery Procedure, Year, and Place: Right Shoulder Partial Replacement, 05/29/16 , [place]; Right Rotator Cuff, 01/10/16, [place]; Right Ankle Infections s/p Fusion, 2014, [place]; Left Breast Biopsy, 2013, [place]; Left Carpal Tunnel, ~2011, [place]; Left Bunionectomy with other Metatarsal Involvement; Bilateral TKA: C-Sections; T&A - Family History Known Family History: Positive: Cardiac Disease, Other - OA - Social History Occupation: Retired Alcohol Use: None Substance Use Type: None Smoking Status (MU): Never Smoked Tobacco Have You Smoked in the Last Year: No - Immunization History Most Recent Influenza Vaccination: "I have never had a flu shot." Most Recent Tetanus Shot: ~2012 Most Recent Pneumonia Vaccination: Fall 2014 Review of Systems All Other Systems Reviewed And Are Negative: Yes Constitutional: Positive: Negative Skin: Positive: Negative Eyes: Positive: Negative ENT: Positive: Negative Respiratory: Positive: Negative Cardiovascular: Positive: Other - hx of a fib, rate controlled. Gastrointestinal: Positive: Negative Genitourinary: Positive: Negative Motor: Positive: Decreased ROM Neurovascular: Positive: Negative Musculoskeletal: Positive: Arthralgia Neurological: Positive: Negative Psychological: Positive: Negative Is Patient Immunocompromised?: No Physical Exam Triage Information Reviewed: Yes Appearance: Well-Appearing, Well-Nourished, Pain Distress - moderately severe Vital Signs: Initial Vital Signs Temp 98.2 F 04/25/19 18:30 Pulse 86 04/25/19 18:30 Resp 16 04/25/19 18:30 BP 146/78 04/25/19 18:30 Pulse Ox 100 04/25/19 18:30 ENT: Positive: Normal ENT inspection Respiratory: Positive: Lungs clear, Normal breath sounds Cardiovascular: Positive: RRR - clinically in sinus rhythm, No Murmur Musculoskeletal Exam: Other - Moderate swelling at right elbow, held in extension. Normal radial pulse and has normal flexion and extension of fingers. Normal wrist movement. Musculoskeletal: Positive: ROM Limited @ - right elbow. Psychological Exam: Normal Skin Exam: Normal - Hand feels cool, but radial pulse is normal. Normal cap refill Diagnostics - Radiology No standard instances Radiology Interpretation Completed By: ED Physician - Comminuted fracture distal humerus with displacement. Upper Extremity Course/Dx - Course Course Of Treatment: Discussed with Dr[facility] Slade who [facility] Posterior splint applied with flexion and placed in sling. Discussed pain control, and she has done best during orthopedic procedures with use of oxycodone. Will continue acetaminophen as needed. Follow up with ortho on Saturday. - Differential Dx/Diagnosis Differential Diagnosis/HQI/PQRI: Contusion, Fracture (Closed), Hematoma Provider Diagnosis: Fracture of distal end of right humerus - Physician Notification/Consults Discussed Patient Care With: Austyn Slade Time Discussed With Above Provider: 19:20 Discharge ED - Sign-Out/Discharge Documenting (check all that apply): Patient Departure All imaging exams completed and their final reports reviewed: No - Discharge Plan Condition: Stable Disposition: HOME Prescriptions: Oxycodone HCl 5 mg PO Q6H PRN #30 tab MDD 8 PRN Reason: Pain - Severe Patient Education Materials: Elbow Fracture (ED) Referrals: Nick Morel MD [Primary Care Provider] - Austyn Slade MD [Medical Doctor] - Additional Instructions: Please call [facility] on Saturday morning to arrange a visit that day or 04/28/19 at the latest for further management of fracture. If you have increasing pain or develop numbness in the hand, please go to the emergency room for evaluation. I suggest using Tylenol (acetaminophen) up to 1000mg every 6 to 8 hours REGULARLy for pain. Add oxycodone as needed, taking up to a maximum of 8 tablet per day, being aware of possible sedation and dizziness. You can ice the area around the elbow to help to decrease swelling. Keep the splint in place until you are evaluated. - Billing Disposition and Condition Condition: STABLE Disposition: Home
--- NOTE | 2019-04-26 09:03 | UC ---
- Progress Note Progress Note: Final radiologist reading from April 25, 2019 for right elbow comes back is minimally displaced inter articular fracture of the medial epicondyle and joint effusion. Provider interpretation the same date as a fracture and the case was reviewed with orthopedics therefore there is no discrepancy. Course/Dx - Diagnoses Provider Diagnoses: Fracture of distal end of right humerus - Provider Notifications Time Discussed With Above Provider: 19:20 Discharge ED - Sign-Out/Discharge Documenting (check all that apply): Patient Departure All imaging exams completed and their final reports reviewed: Yes - Discharge Plan Condition: Stable Disposition: HOME Prescriptions: Oxycodone HCl 5 mg PO Q6H PRN #30 tab MDD 8 PRN Reason: Pain - Severe Patient Education Materials: Elbow Fracture (ED) Referrals: Austyn Slade MD [Medical Doctor] - Nick Morel MD [Primary Care Provider] - Additional Instructions: Please call [facility] on Saturday morning to arrange a visit that day or 04/28/19 at the latest for further management of fracture. If you have increasing pain or develop numbness in the hand, please go to the emergency room for evaluation. I suggest using Tylenol (acetaminophen) up to 1000mg every 6 to 8 hours REGULARLy for pain. Add oxycodone as needed, taking up to a maximum of 8 tablet per day, being aware of possible sedation and dizziness. You can ice the area around the elbow to help to decrease swelling. Keep the splint in place until you are evaluated. - Billing Disposition and Condition Condition: STABLE Disposition: Home
== END 2019-04-25 20:24 | disposition home or self-care (01) ==
LOC: UCCORT 17:57
DX: S42.441A Displaced fracture (avulsion) of medial epicondyle of right humerus, initial encounter for closed fracture (principal); M25.421 Effusion, right elbow; W18.30XA Fall on same level, unspecified, initial encounter; Y92.9 Unspecified place or not applicable; I48.91 Unspecified atrial fibrillation; I10 Essential (primary) hypertension; Z79.01 Long term (current) use of anticoagulants; Z96.611 Presence of right artificial shoulder joint; Z88.5 Allergy status to narcotic agent; Z91.09 Other allergy status, other than to drugs and biological substances
CPT/HCPCS: 99213; G0463

== ENCOUNTER 2019-07-03 14:40 | Emergency (ER) | payer MEDICARE, BC ==
--- OUTSIDE RECORDS SUMMARY | 2019-07-03 14:52 | XMS REPORT | Summary of Care ---
:1940 Author Organization [facility] Address [address] [place] [id number] Care Team Providers Name Role Phone Nick Morel MD Primary Care Provider Reason for Visit Reason Comments Follow-up Encounter Details Date Type Department Care Team Description 05/14/2019 Office Visit Chidi Jeffers MD Connective tissue Rheumatology 90 [facility], [address] [place] [address] 2nd Floor (Primary Dx) [address] [place] [address] [phone] Allergies Active Allergy Reactions Severity Noted Date Comments Morphine And Related Nausea And Vomiting High 09/09/2013 Also complains of dizziness documented as of this encounter (statuses as of 05/14/2019) Medications Medication Sig Dispensed Refills Start Date End Date Status calcium-vitamin D Take 1 tablet by 0 Active (OSCAL-500) 500-200 mouth daily. MG-UNIT per tablet Cranberry 400 MG CAPS Take 400 mg by 0 Active mouth daily. Multiple Vitamin Take 1 capsule by 0 Active (MULTIVITAMIN) capsule mouth daily. levocetirizine (XYZAL) Take 5 mg by mouth 0 Active 5 MG tablet every evening. ramipril (ALTACE) 5 MG Take 5 mg by mouth 0 Active capsule daily. amlodipine (NORVASC) Take 2.5 mg by 0 Active 2.5 MG tablet mouth daily. solifenacin (VESICARE) Take 10 mg by 0 Active 5 MG tablet mouth daily. atorvastatin (LIPITOR) Take 10 mg by 0 Active 10 MG tablet mouth every evening. Misc. Devices (DURABLE Use as directed. Wrists brace with thumb stabilizer 2 each 0 04/26/2016 Active MEDICAL EQUIPMENT SEE Left and right SIG) MISC Additional information Patient not taking. Reported on 05/04/2019 1:59 PM hydrochlorothiazide TK 1 T PO QD 11 09/01/2016 Active (HYDRODIURIL) 12.5 MG tablet carboxymethylcellulose 1 drop Three 0 Active (REFRESH PLUS) 0.5 % SOLN times daily as needed cyclobenzaprine (FLEXERIL) Prn only 1 09/16/2017 Active 5 MG tablet latanoprost (XALATAN) 0.005 INT 1 GTT 5 08/30/2017 Active % ophthalmic solution INTO OU QHS XARELTO 15 MG tablet Take 1 tablet 3 09/22/2018 Active by mouth daily Diclofenac Sodium Apply 1 g 100 g 3 2018 Active (VOLTAREN) 1 % GEL topically Four times daily acetaminophen (TYLENOL) 650 Take 650 mg 0 Active MG CR tablet by mouth every 8 (eight) hours as needed for Pain Albuterol Sulfate HFA 108 Inhale 2 1 Inhaler 11 05/10/201904/26 Active (90 Base) MCG/ACT puffs into 08/13 Inhalation Aerosol Solution the lungs 20 (PROVENTIL HFA;VENTOLIN every 6 (six) HFA) hours as needed for Wheezing Docusate Sodium 100 MG Oral Take 1 20 capsule 0 05/10/201904/27 Active Capsule (COLACE) capsule by 10/13 mouth Two 19 Times Daily for 10 days oxyCODONE-Acetaminophen Take 1-2 tabs 56 tablet 0 05/10/2019 Active 5-325 MG Oral Tablet by mouth (PERCOCET) every 4-6 hours as needed for pain. MDD: 8 hydroxychloroquine Take 1 tablet 60 tablet 11 02/13/201904/26 Discontinued (No (PLAQUENIL) 200 MG tablet by mouth Two 02/13 longer needed) Times Daily 19 documented as of this encounter (statuses as of 05/14/2019) Active Problems Problem Noted Date Closed fracture of right distal humerus 05/06/2019 Displaced fracture of medial condyle of right humerus, initial encounter 05/04 for closed fracture Iron deficiency anemia 02/13/2019 Osteoarthritis (arthritis due to wear and tear of joints) 04/27/2016 Carpal tunnel syndrome, bilateral 04/27/2016 Connective tissue disease, undifferentiated 03/29/2016 Atrial fibrillation 03/28/2016 S/P Right femoral-tibial bypass 03/28/2016 Coronary artery disease PAD (peripheral artery disease) Hyperlipidemia Hypertension documented as of this encounter (statuses as of 05/14/2019) Resolved Problems Problem Noted Date Resolved Date Chronic wound of extremity 01/11/2015 03/28/2016 Ankle fracture, right 10/03/2017 Stroke 04/02/2016 documented as of this encounter (statuses as of 05/14/2019) Social History Tobacco Use Types Packs/Day Years Used Date Never Smoker Smokeless Tobacco: Never Used Tobacco Cessation: Counseling Given: No Alcohol Use Drinks/Week oz/Week Comments No Sex Assigned at Date Recorded Not on file Job Start Date Occupation Industry Not on file Not on file Not on file Travel History Travel Start Travel End No recent travel history available. documented as of this encounter Last Filed Vital Signs Vital Sign Reading Time Taken Comments Blood Pressure 134/67 05/14/2019 10:17 AM EST Pulse 88 05/14/2019 10:17 AM EST Temperature 36.7 05/14/2019 10:17 AM EST C (98.1 F) Respiratory Rate 15 05/14/2019 10:17 AM EST Oxygen Saturation 95% 05/14/2019 10:17 AM EST Inhaled Oxygen Concentration - - Weight 74.4 kg (164 lb) 05/14/2019 10:17 AM EST Height 162.6 cm (5' 4") 05/14/2019 10:17 AM EST Body Mass Index 28.15 05/14/2019 10:17 AM EST documented in this encounter Progress Notes Chidi Lagos MD - 05/14/2019 10:15 AM EST Subjective: Patient ID: Maribell Stiles is a 78 y.o. female. HPI This is a 78-year-old white female with history of coronary artery disease, atrial fibrillation, on Xarelto, stroke, peripheral artery disease, hypertension , hyperlipidemia, anemia, MRSA, bladder infection, osteoporosis, right ankle fracture, status post surgery, and knee osteoarthritis, status post both-knee replacement returned after 12 months. I first time saw her on 03/16/2016 at which time she was referred by her primary doctor for possible rheumatoid arthritis. The patient is known to have osteoarthritis of both knees for many years. The left knee was replaced about 10 years ago, right kneereplaced about 7 years ago. That has worked well. The patient is also known to have right shoulderrotator cuff tear and just had right shoulder surgery on January 10, 2016. During that period of time, she was found to have anemia in the hospital at the surgery time. Some of the physicians noticed the hand MCP joints were swollen and tender. That has been going on for about a year. She was suggested to see a gusset ripper to rule out rheumatoid arthritis. She did have a rheumatoid factor which was negative and CCP antibody 27 mildly elevated. The patient had a right ankle fracture and after the injury needed to have a couple of fusion surgeries, eventually completely fused in August 2014. She also had a bladder infection and MRSA infection during the hospitalization, and she was found to have atrial fibrillation, on Xarelto. The patient has dry eyes, dry nose, dry mouth, and skin easy bruising. Otherwise, no photosensitivity, skin rashes or ulcers, alopecia, chest pain or Raynaud's. On 03/29/2016, she came in for follow up. I reviewed labs with the patient. CHAD speckle 250. Suspected UCTD. Recommended hydroxychloroquine 200mg bid. Need yearly financial planner exam to monitor retinaltoxicity. Side effect explained. E -prescribed 60+11. On 04/26/2016, she came in for follow up. The patient tried Plaquenil, but developed severe diarrhea after 2 days. The diarrhea persisted, becoming abdominal cramping and bloody diarrhea. She was admitted to [facility]. Plaquenil was discontinued. CT scan suspected colitis. Eventually, she had a colonoscopy which diagnosed ischemic colitis. Without Plaquenil, her GI symptoms were better, but she still has symptoms of joint pains in hands, wrists , shoulders, knees, ankles. More painful on the right wrist and right thumb and right hand 2nd MCP joint. She is right handed. She is taking ibuprofen 600 mg maybe once or twice a week, which does help. Because of the severe side effects to Plaquenil, she would not like to try methotrexate or other disease modifying antirheumatic drugs. She would rather just take ibuprofen as needed at this time. Also recommended wrist brace with thumb stabilizer. On 10/04/2016, she came in for follow up. After discontinuing the Plaquenil, the diarrhea resolved. She only used ibuprofen 600 mg once or twice a day to help with arthritis pain which seems to work well. She was not interested to try other disease modifying antirheumatic drugs. She is on Xarelto for atrial fibrillation which was diagnosed in 2014. She has a chronic right shoulder injury and limited range of motion. She had first right shoulder surgery repair in February of 2016 but that did not work well. She had to have a partial right shoulder replacement on May 29, 2016. Right shoulder is still limited range of motion. She also has chronic right leg edema and follows up with vascular surgery for that. She had surgical repair of the right foot and had skin patches from the left wrist. Otherwise, she was doing well. On 11/14/2017, the patient came in for follow up. The patient only taking ibuprofen 800 mg twice a day, which does help with arthritis for the most of the time, but she still have very stiff joints in the morning and pains at different locations, the hips, right shoulder and hands MCP joints. She had left hip x-ray, which showed moderate osteoarthritis. Already had bilateral knees replaced. I suggest to try prednisone 5 mg daily for a couple days and see if she responsive to that. Meanwhile continue ibuprofen 800 mg twice a day as needed. So far, no side effects. On 2018, the patient came in for follow up. She eventually had right shoulder surgery and foundto have severe anemia and needed blood transfusion after surgery. Right shoulder still had limited range of motion. Today, she most complains right hand 2nd, 3rd MCP joints are swollen and right wrist on the ulnar side very painful and swollen. She has to wear a wrist brace all the time. Left handis not too bad. She tried prednisone 5 mg daily for a couple of days. That really did not make anydifference. She is still taking ibuprofen 800 mg once a day, but recently had to increase to twice a day. About 3 months ago, she had blood work by her primary doctor and found to have anemia. She had a colonoscopy. There is possibly no GI blood loss. She was referred to Hematology Oncology for further evaluation. Eventually, we discussed about the methotrexate, but because of her anemia and kidney disease, will hold off for now until she gets clear diagnosis from Hematology Oncology the causes of anemia. Will try 1% diclofenac gel, apply to hands and wrist 4 times a day as needed. will do hands x-ray at [facility]. On 02/13/2019, the patient came in for follow up. Left hand x-ray was unremarkable. She was found to have iron deficiency anemia. Received 6 iron infusions so far. Follow with Hematology/Oncology. Just had labs done last week. CBC showed H/H 1030. Mild low iron but ferritin normal. She had colonoscopya few years ago which was negative for GI bleeding. She is on Xarelto. Her PCP switched Ibuprofen toTylenol 650mg for arthritis. Discussed about DAMRDs. Discussed about hydroxychloroquine 200mg bid. But she had diarrhea in the past. Will hold off on that. Will discuss further management after review blood work. Right hand and right wrist hurt and swelling. Right shoulder limited ROM. Left side was fine. Addendum note 02/19/2019 Called the patient. Informed results. She felt fine. Will hold off Plaqueniland other NSAIDs. She agreed with that. On 05/14/2019, the patient came in for follow up. Dictation on: 05/14/2019 11: 24 AM by: CHIDI LAGOS [[id number]] Review of Systems Per HPI. Review of complete ROS is negative. Past Medical History: Diagnosis Date Anemia Ankle fracture, right Arthritis of left hip 08/2017 Atrial fibrillation 03/28/2016 Blood transfusion without reported diagnosis Carpal tunnel syndrome, bilateral 04/27/2016 Connective tissue disease, undifferentiated 03/29/2016 Coronary artery disease Glaucoma Heart murmur History of ischemic colitis Hyperlipidemia Hypertension MRSA (methicillin resistant staph aureus) culture positive Osteoarthritis (arthritis due to wear and tear of joints) 04/27/2016 Osteoporosis PAD (peripheral artery disease) S/P femoral-tibial bypass: right 03/28/2016 S/P rotator cuff repair Right Stroke Past Surgical History: Procedure Laterality Date ABDOMINAL SURGERY , rt oopharectomy APPENDECTOMY BACK SURGERY L4-5 BREAST SURGERY Left biopsy CARPAL TUNNEL RELEASE SECTION EYE SURGERY Bilateral cataract FEMORAL ARTERY - TIBIAL ARTERY BYPASS GRAFT Right 11/17/2014 Fem - PT bypass with non-reversed translocated saphenous vein (popliteal artery occlusion) FRACTURE SURGERY Right ankle, shoulder JOINT REPLACEMENT Bilateral knees JOINT REPLACEMENT Right shoulder LUMBAR SPINE SURGERY OOPHORECTOMY ORIF ANKLE FRACTURE Right Had allergic reaction to hardware, and developed MRSA s/p removal. Joint was fused. MI FREE SKIN FLAP W MICROVASC ANAST Left 01/11/2015 Procedure: LEFT RADIAL FOREARM FREE FLAP TO RIGHT ANKLE WOUND, SPLIT THICKNESS SKIN GRAFT TO DONOR PLACEMENT OF ANTIBIOTIC BEEDS, IRRIGATION AND DEBRIDEMENT SITE PER DR. CHOUDHURY ; Surgeon: Jordan Neil MD; Location: [address]; Service: Orthopedics; Laterality: Left; ROTATOR CUFF REPAIR Right Partial shoulder replacement TONSILLECTOMY TOTAL KNEE ARTHROPLASTY Bilateral VASCULAR SURGERY Family History Problem Relation Age of Onset Heart disease Mother Heart disease Father Arthritis Maternal Uncle Cancer Brother Social History Tobacco Use Smoking status: Never Smoker Smokeless tobacco: Never Used Substance Use Topics Alcohol use: No Drug use: No Morphine and related Current Outpatient Medications Medication Sig Dispense Refill acetaminophen (TYLENOL) 650 MG CR tablet Take 650 mg by mouth every 8 ( eight) hours as needed for Pain Albuterol Sulfate HFA 108 (90 Base) MCG/ACT Inhalation Aerosol Solution ( PROVENTIL HFA;VENTOLIN HFA) Inhale 2 puffs into the lungs every 6 (six) hours as needed for Wheezing 1 Inhaler 11 amlodipine (NORVASC) 2.5 MG tablet Take 2.5 mg by mouth daily. atorvastatin (LIPITOR) 10 MG tablet Take 10 mg by mouth every evening. calcium-vitamin D (OSCAL-500) 500-200 MG-UNIT per tablet Take 1 tablet by mouth daily. carboxymethylcellulose (REFRESH PLUS) 0.5 % SOLN 1 drop Three times daily as needed Cranberry 400 MG CAPS Take 400 mg by mouth daily. cyclobenzaprine (FLEXERIL) 5 MG tablet Prn only 1 Diclofenac Sodium (VOLTAREN) 1 % GEL Apply 1 g topically Four times daily 100 g 3 Docusate Sodium 100 MG Oral Capsule (COLACE) Take 1 capsule by mouth Two Times Daily for 10 days 20 capsule 0 hydrochlorothiazide (HYDRODIURIL) 12.5 MG tablet TK 1 T PO QD 11 hydroxychloroquine (PLAQUENIL) 200 MG tablet Take 1 tablet by mouth Two Times Daily (Patient not taking: Reported on 05/04/2019) 60 tablet 11 latanoprost (XALATAN) 0.005 % ophthalmic solution INT 1 GTT INTO OU QHS 5 levocetirizine (XYZAL) 5 MG tablet Take 5 mg by mouth every evening. Misc. Devices (DURABLE MEDICAL EQUIPMENT SEE SIG) MISC Use as directed. Wrists brace with thumb stabilizer Left and right (Patient not taking: Use as directed. Reported on 05/04/2019) 2 each 0 Multiple Vitamin (MULTIVITAMIN) capsule Take 1 capsule by mouth daily. oxyCODONE-Acetaminophen 5-325 MG Oral Tablet (PERCOCET) Take 1-2 tabs by mouth every 4-6 hours as needed for pain. MDD: 8 56 tablet 0 ramipril (ALTACE) 5 MG capsule Take 5 mg by mouth daily. solifenacin (VESICARE) 5 MG tablet Take 10 mg by mouth daily. XARELTO 15 MG tablet Take 1 tablet by mouth daily 3 No current facility-administered medications for this visit. Objective: Physical Exam Visit Vitals BP 134/67 Pulse 88 Temp 36.7 C (98.1 F) (Tympanic) Resp 15 Ht 1.626 m (5' 4") Wt 74.4 kg (164 lb) SpO2 95% BMI 28.15 kg/m HEENT: no facial erythema, hearing grossly intact. Extremities no cyanosis, clubbing. Right leg chronic edema. Neuro exam: AAO*3, no focal deficits. Muscle strength preserved. Skin exam: No psoriasis or vasculitis skin rash. Joint exam : right shoulder very limited ROM and tenderness. Left shoulder normal. Elbows were normal. right hand 2nd to 3rd MCP joint and some PIP joint were enlarged, swelling and tender. Right wrist ulnar side swelling and tender, limited ROM. Both knees replaced. Right arm inwrap and splint. Limited ROM of right elbow, right wrist. Data reviewed: Labs done 01/17/2016 CMP normal. WBC 13.2, platelet 657, H/H 9.3/28.4. CRP 185, RF negative, uric acid 4.1. CCP 27. Admission on 05/06/2019, Discharged on 05/10/2019 Component Date Value Ref Range Status White Blood Cell 05/06/2019 8.0 4 - 10 10*3/uL Final Red Blood Cell 05/06/2019 3.50* 4.1 - 5.3 10*6/uL Final Hemoglobin 05/06/2019 11.1* 11.5 - 15.5 g/dL Final Hematocrit 05/06/2019 33.3* 36 - 45 % Final Mean Cell Volume 05/06/2019 95.3 80 - 96 fL Final Mean Cell Hemoglobin 05/06/2019 31.8 27 - 33 pg Final Mean Cell Hgb Conc 05/06/2019 33.4 32.0 - 36.0 g/dL Final Red Cell Dist Width 05/06/2019 14.9* 11.5 - 14.5 % Final Platelet Count 05/06/2019 359 150 - 400 10*3/uL Final Bicarbonate 05/06/2019 26 22 - 29 mmol/L Final Chloride 05/06/2019 101 98 - 107 mmol/L Final Creatinine 05/06/2019 1.02* 0.50 - 0.90 mg/dL Final Glucose 05/06/2019 100 70 - 140 mg/dL Final Potassium 05/06/2019 4.9 3.4 - 5.1 mmol/L Final Hemolyzed Sodium 05/06/2019 138 136 - 145 mmol/L Final Blood Urea Nitrogen 05/06/2019 23 8 - 23 mg/dL Final Anion Gap 05/06/2019 11 8 - 15 mmol/L Final Osmolality, Victor Manuel 05/06/2019 290 275 - 300 mosm/kg Final BUN/Cre Ratio 05/06/2019 23 Final Calcium 05/06/2019 9.0 8.8 - 10.2 mg/dL Final GFR Non 2008 CDK-* 05/06/2019 52* >60 mL/min/1.73m2 Final GFR 2008 CKD-EPI 05/06/2019 60* >60 mL/min/1.73m2 Final PTT Patient (PAT) 05/06/2019 29.3 24.0 - 34.0 s Final PT Patient 05/06/2019 13.5 12.5 - 14.9 s Final Int'l Normalized Ratio 05/06/2019 1.00 Final Routine intensity oral anticoagulation INR is typically 2.0-3.0. Target INR must be clinically individualized. ABO/RH(D) 05/06/2019 O POS Final Gel Antibody Screen 05/06/2019 NEG Final Site 05/06/2019 Performed at [place], [place] Final Hands x-ray 03/16/2016 suggesting early rheumatoid arthritis. Left hip x-ray showed moderate osteoarthritis. Assessment: 1. Osteoarthritis of multiple sites with possible inflammatory arthritis, CHAD speckle 250. SuspectedUCTD. Started plaquenil 03/29/2016. But developed diarrhea.diagnosed with ischemia colitis. Responsive to ibuprofen 800mg bid. Off ibuprofen because of anemia. Add HCQ 200mg bid in 01/2016. But had diarrhea. 2. Other medical problems as listed in HPI. 3. Right shoulder partial replacement in 05/29/2016. 4. Right leg chronic edema. After surgery. 5. CKD 6. Anemia. YEN. 7. Right arm fracture 04/25/2019. S/P surgery. Plan: - Maribell was seen today for follow-up. Diagnoses and all orders for this visit: Connective tissue disease, undifferentiated - XR Hand 2 Views Right; Future - CHAD; Future - Centromere antibody; Future - Sjogrens syndrome-A extractable nuclear antibody; Future - CHAD - Centromere antibody - Sjogrens syndrome-A extractable nuclear antibody - off ibuprofen. - Tylenol 650mg tid prn. - Activities as tolerated. - RV in 12 months; above findings, analysis and plan were all discussed with the patient and her questions were answered as much as possible. documented in this encounter Plan of Treatment Date Type Specialty Care Team Description 05/25/2019 Office Visit Orthopedic Surgery Jarett Malik MD [address] [place] [address] [phone] 06/18/2019 Office Visit Rheumatology Chidi Lagos MD [address] [facility] [address] [place] [address] [phone] Name Type Priority Associated Diagnoses Order Schedule XR Hand 2 Views Right Imaging Routine Connective tissue disease, Expected: 05/14/2019, undifferentiated Expires: 05/14/2021 [facility] Lab Routine Connective tissue disease, 1 Occurrences undifferentiated starting 05/14/2019 until 11/14/2019 Centromere antibody Lab Routine Connective tissue disease, 1 Occurrences undifferentiated starting 05/14/2019 until 2019 Sjogrens syndrome-A Lab Routine Connective tissue disease, 1 Occurrences extractable nuclear undifferentiated starting 05/14/2019 antibody until 2019 Health Maintenance Due Date Last Done Comments MMR Vaccines (1 of 1 - 1942 Standard series) Varicella Vaccines (1 of 2 - 1941 2-dose childhood series) DTaP,Tdap,and Td Vaccines (1 1948 - Tdap) Zoster Vaccines (1 of 2) 11/14/1991 Pneumococcal Vaccine: 65+ 2006 Years (1 of 2 - PCV13) Osteoporosis Screening 2 yr 01/11/2017 01/11/2015, 01/06/2015, 12/30/2014 Influenza Vaccine 02/24/2019 HIB Vaccines Aged Out No longer eligible based on patient's age to complete this topic Hepatitis A Vaccines Aged Out No longer eligible based on patient's age to complete this topic Hepatitis B Vaccines Aged Out No longer eligible based on patient's age to complete this topic IPV Vaccines Aged Out No longer eligible based on patient's age to complete this topic Pneumococcal Vaccine: Aged Out No longer eligible based Pediatrics (0 to 5 Years) and on patient's age to At-Risk Patients (6 to 64 complete this topic Years) documented as of this encounter Implants Implanted Type Area Screen Writer Device Shelf Model / Identifier Expiration Serial / Date Lot Beads Cyndyan Rapid Cure 10cc - [id number] Left: Leg [employer] 620-010 / Implanted: Qty: 1 on 01/11/2015 by Jordan Neil MD at OR 5E / [id number]/11-R231 Screw Evos 20mm Ctx 3.5 - [id number] Right: DOMINGUEZ + NEPHEW [id number] / Implanted: Qty: 1 on 05/09/2019 by Jarett Malik MD at OR 5E Humerus / Screw Evos 22mm Ctx 3.5 - [id number] Right: DOMINGUEZ + NEPHCHRIST [id number] / Implanted: Qty: 2 on 05/09/2019 by Jarett Malik MD at OR 5E Humerus / Screw Evos 20mm Ctx T8 2.7 - [id number] Right: [employer] + NEPHEW [id number] / Implanted: Qty: 1 on 05/09/2019 by Jarett Malik MD at OR 5E Humerus / Screw Evos 44mm Ctx T8 2.7 - [id number] Right: [employer]Z + NEPHEW [id number] / Implanted: Qty: 1 on 05/09/2019 by Jarett Malik MD at OR 5E Humerus / Screw Evos 2.7 16mm Lk T8 2.7 - [id number] Right: DOMING[employer]Z + NEPHCHRIST [id number] / Implanted: Qty: 1 on 05/09/2019 by Jarett Malik MD at OR 5E Humerus / Screw Evos 2.7 20mm Lk T8 2.7 - [id number] Right: ALBERTO Easley NEPHCHRIST [id number] / Implanted: Qty: 1 on 05/09/2019 by Jarett Malik MD at OR 5E Humerus / Plate 2.7/3.5 M-D Hum 3h R 80mevos - [id number] Right: ALBERTO TAYLOR [id number] / Implanted: Qty: 1 on 05/09/2019 by Jarett Malik MD at OR 5E Humerus / documented as of this encounter Results Not on filedocumented in this encounter Visit Diagnoses Diagnosis Connective tissue disease, undifferentiated - Primary Unspecified diffuse connective tissue disease documented in this encounter Additional Health Concerns Infection Noted Time Resolved Time 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
--- OUTSIDE RECORDS SUMMARY | 2019-07-03 14:52 | XMS REPORT | Summary of Care ---
:1940 Author Organization [facility] Address [address] [place] [address] Care Team Providers Name Role Phone Nick Morel MD Primary Care Provider Reason for Visit Auth/Cert Status Reason Specialty Diagnoses / Procedures Referred By Contact Referred To Contact Diagnoses displaced fx of right humerus Closed fracture of right distal humerus Encounter Details Date Type Department Care Team Description 05/06/2019 - Hospital Encounter 07A ORTHOPEDICS Jarett Malik Diagnosis unknown 05/10/2019 INPATIENT MARIELA Cabrera MD (Primary Dx) [address] [facility] [address], [place] [address] [id number] [place], [place] [id number] Allergies Active Allergy Reactions Severity Noted Date Comments Morphine And Related Nausea And Vomiting High 09/09/2013 Also complains of dizziness documented as of this encounter (statuses as of 05/10/2019) Medications Medication Sig Dispensed Refills Start Date [...] MEDICAL EQUIPMENT SEE Left and right SIG) [facility] Additional information Patient not taking. Reported on 05/04/2019 1:59 PM hydrochlorothiazide TK 1 T PO QD 11 09/01/2016 Active (HYDRODIURIL) 12.5 MG tablet carboxymethylcellulose 1 drop Three 0 Active (REFRESH PLUS) 0.5 % SOLN times daily as needed cyclobenzaprine (FLEXERIL) 5 Prn only 1 09/16/2017 Active MG tablet latanoprost (XALATAN) 0.005 % INT 1 GTT INTO OU 5 08/30/2017 Active ophthalmic solution QHS XARELTO 15 MG tablet Take 1 tablet by 3 09/22/2018 Active mouth daily Diclofenac Sodium (VOLTAREN) 1 Apply 1 g 100 g 3 2018 Active % GEL topically Four times daily acetaminophen (TYLENOL) 650 MG Take 650 mg by 0 Active CR tablet mouth every 8 (eight) hours as needed for Pain hydroxychloroquine (PLAQUENIL) Take 1 tablet by 60 tablet 11 02/13/2019 Active 200 MG tablet mouth Two Times 020 Daily Additional information Patient not taking. Reported on 05/04/2019 1:59 PM Albuterol Sulfate Inhale 2 puffs 1 Inhaler 11 05/10/2019 05/08/2020 Active HFA 108 (90 Base) into the lungs MCG/ACT Inhalation every 6 (six) Aerosol Solution hours as (PROVENTIL needed for HFA;VENTOLIN HFA) Wheezing Docusate Sodium Take 1 capsule 20 capsule 0 05/10/2019 05/20/2019 Active 100 MG Oral by mouth Two Capsule (COLACE) Times Daily for 10 days oxyCODONE-Acetamin Take 1-2 tabs 56 tablet 0 05/10/2019 Active ophen 5-325 MG by mouth every Oral Tablet 4-6 hours as (PERCOCET) needed for pain. MDD: 8 albuterol Inhale 2 puffs 0 05/06/2019 Discontinued (No (PROVENTIL into the lungs longer needed) HFA;VENTOLIN HFA) every 6 (six) 108 (90 BASE) hours. MCG/ACT inhaler ferrous gluconate TK 1 T PO BID 11 09/18/2017 05/06/2019 Discontinued ( No (FERGON) 324 MG longer needed) tablet azelastine INSTILL 1 DROP 4 06/27/2017 05/06/2019 Discontinued (No (OPTIVAR) 0.05 % IN EACH EYE longer needed) ophthalmic BID solution DIRECTED prednisoLONE SHAKE LQ AND 0 10/22/2018 05/06/2019 Discontinued (No acetate (PRED INT 1 GTT IN longer needed) FORTE) 1 % OU QID UTD ophthalmic suspension ofloxacin INT 1 GTT IN 0 10/22/2018 05/06/2019 Discontinued (No (OCUFLOX) 0.3 % OU QID UTD longer needed) ophthalmic solution ketorolac (ACULAR) INT 1 GTT IN 0 10/22/2018 05/06/2019 Discontinued (No 0.5 % ophthalmic OU QID UTD longer needed) solution ibuprofen Take 1 tablet 180 tablet 1 11/17/2018 05/10/2019 Discontinued (ADVIL,MOTRIN) 800 by mouth Two (Stop Taking at MG Times Daily Discharge) tabletIndications: Inflammatory arthritis documented as of this encounter (statuses as of 05/10/2019) Active Problems Problem Noted Date Closed fracture [...] as of this encounter (statuses as of 05/10/2019) Resolved Problems Problem Noted Date Resolved Date Chronic wound of extremity 01/11/2015 03/28/2016 Ankle fracture, right 10/03/2017 Stroke 04/02/2016 documented as of this encounter (statuses as of 05/10/2019) Social History Tobacco Use Types Packs/Day Years Used Date Never Smoker Smokeless Tobacco: Never Used Alcohol Use Drinks/Week oz/Week Comments No Sex Assigned at Date Recorded Not on file Job Start Date Occupation Industry Not on file Not on file Not on file Travel History Travel Start Travel End No recent travel history available. documented as of this encounter Last Filed Vital Signs Vital Sign Reading Time Taken Comments Blood Pressure 135/76 05/10/2019 12:00 PM EST Pulse 83 05/10/2019 12:00 PM EST Temperature 36.9 05/10/2019 12:00 PM EST C (98.4 F) Respiratory Rate 16 05/10/2019 12:00 PM EST Oxygen Saturation 92% 05/10/2019 12:00 PM EST Inhaled Oxygen Concentration - - Weight - - Height - - Body Mass Index - - documented in this encounter Discharge Summaries Anna Joyner, [employer] - 05/10/2019 10:04 AM EST DISCHARGE SUMMARY PATIENT NAME: Maribell Stiles DATE OF : 1940 DATE OF ADMISSION: 05/06/2019 DATE OF DISCHARGE: 05/10/2019 ATTENDING PHYSICIAN: Jarett Malik MD PRIMARY CARE PHYSICIAN: Nick Morel MD ADMISSION DIAGNOSIS: Closed fracture of right distal humerus DISCHARGE DIAGNOSIS: Closed fracture of right distal humerus PROCEDURE PERFORMED: Procedure(s) (LRB): Open Reduction Internal Fixation RIGHT HUMERUS per Dr. Jessika Allen (Right) SECONDARY DIAGNOSIS: Principal Problem: Closed fracture of right distal humerus HOSPITAL COURSE: Patient with a stable post-operative course. No complications were noted. The patient progressed well through physical therapy. DVT prophylaxis was xarelto as an inpatient. Pain was adequately controlled. Vital signs remained stable throughout the post-operative course. Post operative discharge anticoagulation: xarelto ACTIVITY: As per Physical Therapy and Occupational Therapy WEIGHT BEARING STATUS: LUE: weight bearing as tolerated RUE: nonweightbearing LLE: weight bearing as tolerated RLE: weight bearing as tolerated DIET: Regular Diet WOUND CARE:Keep dressing clean dry and intact do not remove do not get wet BRACE/SPLINTS:Splint Keep clean dry and intact do not remove do not get wet. DISCHARGE MEDICATION: Medication List START taking these medications docusate sodium 100 MG capsule Commonly known as: COLACE Take 1 capsule by mouth Two Times Daily for 10 days oxycodone-acetaminophen 5-325 MG per tablet Commonly known as: PERCOCET Take 1-2 tabs by mouth every 4-6 hours as needed for pain. MDD: 8 CHANGE how you take these medications albuterol 108 (90 Base) MCG/ACT inhaler Commonly known as: PROVENTIL HFA;VENTOLIN HFA Inhale 2 puffs into the lungs every 6 (six) hours as needed for Wheezing What changed: when to take this reasons to take this CONTINUE taking these medications acetaminophen 650 MG CR tablet Commonly known as: TYLENOL amlodipine 2.5 MG tablet Commonly known as: NORVASC atorvastatin 10 MG tablet Commonly known as: LIPITOR calcium-vitamin D 500-200 MG-UNIT per tablet Commonly known as: OSCAL-500 carboxymethylcellulose 0.5 % Soln Commonly known as: REFRESH PLUS Cranberry 400 MG Caps cyclobenzaprine 5 MG tablet Commonly known as: FLEXERIL Diclofenac Sodium 1 % Gel Commonly known as: VOLTAREN Apply 1 g topically Four times daily Durable Medical Equipment see sig [facility] Use as directed. Wrists brace with thumb stabilizer Left and right hydrochlorothiazide 12.5 MG tablet Commonly known as: HYDRODIURIL hydroxychloroquine 200 MG tablet Commonly known as: PLAQUENIL Take 1 tablet by mouth Two Times Daily latanoprost 0.005 % ophthalmic solution Commonly known as: XALATAN levocetirizine 5 MG tablet Commonly known as: XYZAL multivitamin capsule ramipril 5 MG capsule Commonly known as: ALTACE solifenacin 5 MG tablet Commonly known as: VESICARE XARELTO 15 MG tablet Generic drug: rivaroxaban STOP taking these medications ibuprofen 800 MG tablet Commonly known as: ADVIL,MOTRIN Where to Get Your Medications [id number] [place] [address] AT [facility] & [address] [id number] albuterol 108 (90 Base) MCG/ACT inhaler docusate sodium 100 MG capsule oxycodone-acetaminophen 5-325 MG per tablet FOLLOW UP: Dr. Malik in 2 Weeks. Call for an appointment at [phone]. Reports son will be helping her at home upon discharge. documented in this encounter Progress Notes Aleshia Martinez RN - 05/10/2019 1:05 PM EST Pt to be discharged home. Reviewed AVS and discharge paperwork with her. Pt stated she understood all information and that she had no additional questions. Wily Arriaga MD - 05/10/2019 3:03 AM EST ORTHOPEDIC SURGERY PROGRESS NOTE SUBJECTIVE: No acute overnight events. Pain adequately controlled. Would like to go home today. OBJECTIVE: Vitals: 05/09/19 1631 05/09/19 1731 05/09/19 1942 05/09/19 2249 BP: 162/71 151/74 156/71 128/66 Pulse: 81 69 78 89 Resp: 16 16 16 16 Temp: 36.5 C 36.6 C 37.1 C 37.2 C SpO2: 95% 98% 95% 96% Gen: Patient is awake, alert and oriented. No acute distress. Lungs: Unlabored respirations, equal chest rise bilaterally RUE: +EPL/+FPL/+FE/+FF/+IO SILT R/U/M but with subjective decreased sensation Fingers WWP with Brisk Capillary Refill ROM limited secondary to pain. Dressing Clean, Dry, and Intact ASSESSMENT: Maribell Stiles is a 78 y.o. female s/p ORIF right distal humerus fracture. Currently stable PLAN: 1.) Weightbearing Staus - NWB on the right upper extremity. 2 lbs lifting restriction 2.) DVT Prophylaxis - Patient does not need DVT prophylaxis due to upper extremity nature of her surgery 3.) Pain Control - IV and PO pain meds PRN 4.) Physical Therapy - appreciate recommendations 5.) Discharge Planning - home when pain controlled and doing well with PT. Associated attestation - Jarett Malik MD - 05/10/2019 10:42 AM ESTPHYSICIAN ATTESTATION: I have personally seen and examined this patient in detail. I have reviewed the resident's note. I have reviewed all pertinent labs, images and findings myself and I agree with the assessment and amador outlined in the note. Mik Sterling Brian J, MD - 05/09/2019 8:28 PM EST ORTHOPEDIC TRAUMA SERVICE, ATTENDING PROGRESS NOTE POST OP CHECK SUBJECTIVE: Patient sitting up in bed. Reports that she is having some nausea and moderate to severe pain. Questions were answered at the bedside regarding surgery. OBJECTIVE: Awake and Alert x3, NAD Vitals: 05/09/19 1531 05/09/19 1631 05/09/19 1731 05/09/19 1942 BP: 159/80 162/71 151/74 156/71 Pulse: 75 81 69 78 Resp: 16 16 16 16 Temp: 36.5 C (97.7 F) 36.5 C (97.7 F) 36.6 C (97.9 F) 37.1 C (98.8 F) SpO2: 98% 95% 98% 95% right Upper Extremity Exam +EPL/+FPL/+FE/+FF/+IO SILT R/U/M but with subjective decreased sensation Fingers WWP with Brisk Capillary Refill ROM limited secondary to pain. Dressing Clean, Dry, and Intact ASSESSMENT: Maribell Stiles is a 78 y.o., who is now POD #0 s/p ORIF right distal humerus fracture. Currently stable PLAN: 1.) Weightbearing Staus - NWB on the right upper extremity. 2 lbs lifting restriction 2.) DVT Prophylaxis - Patient does not need DVT prophylaxis due to upper extremity nature of her surgery 3.) Pain Control - IV and PO pain meds PRN 4.) Physical Therapy - tomorrow 5.) Discharge Planning - home when pain controlled and getting around well. Jarett Malik MD Rom Estrella MD - 05/09/2019 6:57 AM EST [facility] Orthopedic Trauma Progress Note Subjective: No acute events overnight. Pain adequately controlled. She denies fevers, chills, chest pain, shortness of breath, dizziness, light headedness, nausea, or vomiting Objective: Temp: [36.4 C (97.5 F)-36.9 C (98.4 F)] 36.7 C (98.1 F) Pulse: [66-81] 70 Resp: [17-18] 18 BP: (129-145)/(66-76) 129/69 SpO2: [92 %-99 %] 99 % O2 Therapy: Room air Physical Exam General: Patient is awake, alert and oriented. No acute distress. Respiratory: Unlabored respirations Extremities: Right Upper Extremity: Splints/Casts: Long arm splint. The splint is clean, dry, and intact Sensory Exam: Sensation intact grossly to the hand distal to the splint over the finger tips. Motor Exam: Finger Flexion, Extension, abduction, and adduction grossly intact distal to the level of the splint/dressing Fingers appear warm and well perfused. Brisk capillary refill In/Out: I/O last 3 completed shifts: In: 1730 [P.O.:730; I.V.:1000] Out: - Intake/Output Summary (Last 24 hours) at 05/09/2019 0658 Last data filed at 05/08/2019 1800 Gross per 24 hour Intake 1370 ml Output Net 1370 ml Recent Labs: Recent Labs Lab 05/06/191946 NA 138 K 4.9 CL 101 BICARBONATE 26 GLUCOSE 100 BUN 23 CREATININE 1.02* BCR 23 GFRAA 60* GFRNONAA 52* Recent Labs Lab 05/06/191946 HCT 33.3* HGB 11.1* MCH 31.8 MCHC 33.4 MCV 95.3 PLT 359 RDW 14.9* WBC 8.0 Assessment: Maribell Stiles is a 78 y.o. female Hospital Day: 4 s/p right distal humerus fracture- plan for OR today Day of Surgery. The patient is doing well post- operatively Plan: - Pain control with PO medications and IV for breakthrough pain - NPO for surgery - Appreciate Physical Therapy and Occupational Therapy input - Out of bed - Activity: weight bear as tolerated to right arm. This patient was seen with the Orthopedic Trauma Team on Morning Rounds Rom Allen M.D. Orthopedic Surgery PGY-4 Associated attestation - Jarett Malik MD - 05/09/2019 7:33 AM ESTPHYSICIAN ATTESTATION: I have personally seen and examined this patient in detail. I have reviewed the resident's note. I have reviewed all pertinent labs, images and findings myself and I agree with the assessment and amador outlined in the note. Clif Sterling James J III, MD - 05/08/2019 6:13 PM ESTPatient will not be going to OR today; she may eat at this time. Will make NPO at midnight for possible OR tomorrow. Wily Arriaga MD - 05/08/2019 6:00 AM EST ORTHOPEDIC TRAUMA PROGRESS NOTE SUBJECTIVE: No acute events overnight. Pain adequately controlled. Aware of plan for OR today. OBJECTIVE: Temp: [36.4 C-36.9 C] 36.4 C Pulse: [63-90] 63 Resp: [16-18] 16 BP: (110-158)/(63-77) 137/74 SpO2: [95 %-98 %] 95 % O2 Therapy: Room air Recent Labs Lab 05/06/191946 NA 138 K 4.9 CL 101 BICARBONATE 26 GLUCOSE 100 BUN 23 CREATININE 1.02* BCR 23 GFRAA 60* GFRNONAA 52* Recent Labs Lab 05/06/191946 HCT 33.3* HGB 11.1* MCH 31.8 MCHC 33.4 MCV 95.3 PLT 359 RDW 14.9* WBC 8.0 Lab Results Component Value Date INR 1.00 05/06/2019 INR 1.74 01/18/2015 INR 1.73 01/17/2015 Physical Exam: Gen: Patient is awake, alert and oriented. No acute distress. Lungs: Unlabored respirations, equal chest rise bilaterally Ext: RUE: Sensory:Sensation intact to light touch in radial / median / ulnar nerve distributions. Motor: Anterior interosseous nerve / posterior interosseous nerve / ulnar nerve motor function intact. Vascular: Fingers warm and well perfused. Brisk capillary refill Splint clean, dry and intact Compartments compressible ASSESSMENT: Maribell Stiles is a 78 y.o. female on Hospital Day: 3 for a right distal humerus fracture s/p fall. PLAN: - NPO for OR today - Pain control - NWB RUE Associated attestation - Jarett Malik MD - 05/09/2019 7:33 AM ESTPHYSICIAN ATTESTATION: I have personally seen and examined this patient in detail. I have reviewed the resident's note. I have reviewed all pertinent labs, images and findings myself and I agree with the assessment and amador outlined in the note. Sam Sterling, Jeanine Valiente RN - 05/07/2019 6:40 PM ESTPer Sal from ortho, okay to saline like while having a PO order. Will continue to monitor, safety precautions maintained. Faith Barrera PT - 05/07/2019 2:04 PM ESTPhysical Therapy Acute Care Missed Visit Note Location: bedside Attempted to visit patient for therapy, but was unable for the following reasons: Patient on hold. Chart reviewed and pt discussed in rounds. Pt with humerus fracture, scheduled for operative fixation today. No pre-op PT needs identified. Will follow and complete PT eval post-operatively. (Therapist may be reached on Vocera) SESSION: Duration: 0 CHARGES: - ORDER - PHYSICAL THERAPY CONSULT 1 Units - CHARGE-IP PT PATIENT IS ON HOLD 1 Units Total treatment minutes: 0.00 Minutes Electronically Signed by: Faith Asencio PT, DPT, 05/07/2019 2:07:03 PM Yulissa Lee RN - 05/07/2019 10:21 AM ESTCase Management Screen & Assessment Patient's Name: Maribell Stiles Date of : 1940 Age: 78 y.o. Gender: female Attending Provider: Jarett Malik MD Admitting Diagnosis: displaced fx of right humerus Closed fracture of right distal humerus Admission Date and Time: 05/06/2019 5:12 PM High Risk Criteria - GENERAL FARM MANAGER/Upon Arrival GENERAL FARM MANAGER-Type of Residence: Private residence GENERAL FARM MANAGER- Home Care Services: No Limited Home Supports/Lives Alone?: No Multi trauma/Critical care admit?: No Head/Spinal cord injury?: No Self pay/No prescription plan?: No Active with homecare?: No Multiple ED visits?: No Related/Unplanned readmission within 30 days?: No Complex/New medical issues: R humerus fx Relevant comorbidities: CVA, TIA, R TSA, bilat TKA, CAD, HTN, afib, MRSA CM Screen Outcome Technical Spec Screen Outcome: Patient has non-skilled discharge-planning needs Patient/Agent informed of choice and given written list?: Patient/agent declined list Important message (Medicare rights) given?: Yes Date Given: 05/06/19 CM Chart Review Notice of Privacy Practice Signed?: Yes Self Pay: No Prescription Plan?: Yes (comment) Pt. Pharmacy & Phone # : [facility] GENERAL FARM MANAGER: Functional/Environmental Assessment Brief physical/psychosocial summary: Patient lives at home with daughter and son in law, they are able to assist as needed Bathing: Independent Dressing: Needs assistance Toileting: Needs assistance Medication administration: Independent Transfers: Independent Ambulation: Independent Meal preparation: Needs assistance Number of stairs into home: (Ramp) Number of stairs to bathroom: 12 Number of stairs to bedroom: 12 Durable Medical Equipment (DME): Walker, Cane, Crutches, Wheelchair-manual, Grab bars, Raised toiletseat/commode Potential Issues/Teaching Needs Physical: PT/OT recs, weight bearing restrictions Other: post op care and restrictions Discharge Assessment Patient/family informed of need for discharge planning?: Yes Patient/Agent informed of choice and given written list?: Patient/agent declined list Patient expects to be discharged to:: Home with assist from family Actual discharge location : Home-No Needs Has discharge transport been arranged?: No transport arrangement necessary Living Arrangements: Children Support Systems: Children, Family members, Friends/neighbors Home services arranged?: No Note: Patient is a 78 year old female admitted for OR repair of R humerus fx. Patient is currently NPO, and plans for surgery are for today. Patient reports that she lives at home with her daughter and son in law, and they are able to assist as needed. Patient has all necessary DME at home from prior surgeries. Patient is hopeful for D/C home tomorrow, pending pain control and PT/OT evals. Patient's family will transport to home. CM will continue to follow for any D /C planning needs. Yulissa Saez Sudhir Varner MD - 05/07/2019 6:18 AM EST ORTHOPEDIC TRAUMA PROGRESS NOTE SUBJECTIVE: No acute events since last seen by orthopedics. Pain adequately controlled. Denies pain in other extremities. OBJECTIVE: Temp: [36.5 C (97.7 F)-36.6 C (97.9 F)] 36.6 C (97.9 F) Pulse: [66-86] 66 Resp: [16-18] 16 BP: (130-132)/(70-73) 130/73 FiO2 : [21 %] 21 % SpO2: [95 %-98 %] 96 % O2 Therapy: Room air Recent Labs Lab 05/06/191946 NA 138 K 4.9 CL 101 BICARBONATE 26 GLUCOSE 100 BUN 23 CREATININE 1.02* BCR 23 GFRAA 60* GFRNONAA 52* Recent Labs Lab 05/06/191946 HCT 33.3* HGB 11.1* MCH 31.8 MCHC 33.4 MCV 95.3 PLT 359 RDW 14.9* WBC 8.0 Lab Results Component Value Date INR 1.00 05/06/2019 INR 1.74 01/18/2015 INR 1.73 01/17/2015 Physical Exam: Gen: Patient is awake, alert and oriented. No acute distress. Lungs: Unlabored respirations, equal chest rise bilaterally Ext: RUE: Sensory:Sensation intact to light touch in radial / median / ulnar nerve distributions. Motor: Anterior interosseous nerve / posterior interosseous nerve / ulnar nerve motor function intact. Vascular: Fingers warm and well perfused. Brisk capillary refill Splint clean, dry and intact Compartments compressible Non tender to palpation over right clavicle, shoulder Non tender to palpation over left clavicle, shoulder, arm, elbow, forearm, wrist , hand Non tender to palpation over right hip, thigh, knee, leg, ankle, foot Non tender to palpation over left hip, thigh, knee, leg, ankle foot Able to dorsiflex and plantarflex ankles bilaterally without pain ASSESSMENT: Maribell Stiles is a 78 y.o. female on Hospital Day: 2 for a right distal humerus fracture s/p fall. PLAN: - NPO for OR today - Preop labs reviewed - Medicine consulted for preop optimization, awaiting attending signature but no intervention per resident note - NWB RUE - Secondary survey performed this morning on rounds and the following actions were taken: negative for other injury at this time, so no need for additional tests or imaging Orthopedic Surgery 05/07/2019 6:19 AM Associated attestation - Jarett Malik MD - 05/09/2019 7:32 AM ESTPHYSICIAN ATTESTATION: I have personally seen and examined this patient in detail. I have reviewed the resident's note. I have reviewed all pertinent labs, images and findings myself and I agree with the assessment and amador outlined in the note. Jarett Malik, MDdocumented in this encounter Plan of Treatment Date Type Specialty Care Team Description 05/14/2019 Office Visit Rheumatology Anurag Lagos MD [address] [place] [address] [address] [place] [address] [phone] Name Type Priority Associated Diagnoses Date/Time XR Humerus Minimum 2 Imaging Routine Diagnosis unknown 05/09/2019 10:23 AM EST Views Port-OR Right Name Type Priority Associated Order Schedule Diagnoses Incentive Spirometry Respiratory Care Routine Respiratory use RT Teach only - Every 2 hours while awake for 30 Days starting 05/06/2019 until 06/05/2019 Oxygen Orders: Nasal Respiratory Care Routine Continuous for 30 Cannula; Liters per days for 30 Days minute: 2 LPM; D/C starting 05/06/2019 Oxygen 48hrs After until 06/05/2019 Being on Room Air: Yes; Wean/Titrate O2 to Keep Sats =>: 93 Oximetry Intermittent Respiratory Care Routine respiratory use only - 0800, 1600, 2400 for 4 Days starting 05/07/2019 until 05/10/2019 XR Humerus Minimum 2 Imaging Routine Diagnosis unknown One Time Imaging Views Port-OR Right Routine for 1 Occurrences starting 05/08/2019 until 05/08/2019 XR Humerus Minimum 2 Imaging Routine Diagnosis unknown One Time Imaging Views Port-OR Right Routine for 1 Occurrences starting 05/09/2019 until 05/09/2019 Health Maintenance Due Date Last Done Comments [...] of this encounter Implants Implanted Type Area Emergency Room Doctor Device Shelf Model / Identifier Expiration Serial / Date Lot Beads Cyndyan Rapid Cure 10cc - [id number] Left: Leg [employer] [id number] / Implanted: Qty: 1 on 01/11/2015 by Jordan Neil MD at OR 07/11-R231 Plate 2.7/3.5 M-D Hum 3h R 80mevos - [id number] Right: ALBERTO TAYLOR [id number] / Implanted: Qty: 1 on 05/09/2019 by Jarett Malik MD at OR 5E Humerus / Screw Evos 20mm Ctx 3.5 - [id number] Right: ALBERTO TAYLOR [id number] / Implanted: Qty: 1 on 05/09/2019 by Jarett Malik MD at OR 5E Humerus / Screw Evos 22mm Ctx 3.5 - [id number] Right: ALBERTO TAYLOR [id number] / Implanted: Qty: 2 on 05/09/2019 by Jarett Malik MD at OR 5E Humerus / Screw Evos 20mm Ctx T8 2.7 - [id number] Right: ALBERTO TAYLOR [id number] / Implanted: Qty: 1 on 05/09/2019 by Jarett Malik MD at OR 5E Humerus / Screw Evos 44mm Ctx T8 2.7 - [id number] Right: ALBERTO TAYLOR [id number] / Implanted: Qty: 1 on 05/09/2019 by Jarett Malik MD at OR 5E Humerus / Screw Evos 2.7 16mm Lk T8 2.7 - [id number] Right: AGUIRRE Kaushal NEPHEW [id number] / Implanted: Qty: 1 on 05/09/2019 by Jarett Malik MD at OR 5E Humerus / Screw Evos 2.7 20mm Lk T8 2.7 - [id number] Right: AGUIRRE + NEPHEW [id number] / Implanted: Qty: 1 on 05/09/2019 by Jarett Malik MD at OR 5E Humerus / Explanted Type Area Emergency Room Doctor Device Shelf Model / Identifier Expiration Serial / Lot Date Evos 2.7/3.[address] 3h 80mm Lt - [id number] Right: AGUIRRE + NEPHEW [id number] / Explanted: Qty: 1 on 05/09/2019 by Jarett Malik MD at OR 5E Humerus / Screw Evos 40mm Ctx T8 2.7 - [id number] Right: AGUIRRE + NEPHEW [id number] / Explanted: Qty: 1 on 05/09/2019 by Jarett Malik MD at OR 5E Humerus / Screw Evos 2.7 18mm Lk T8 2.7 - [id number] Right: AGUIRRE + NEPHEW [id number] / Explanted: Qty: 1 on 05/09/2019 by Jarett Malik MD at OR [facility]E Humerus / documented as of this encounter Procedures Procedure Name Priority Date/Time Associated Comments Diagnosis EKG 12-LEAD - CMAXX 05/06/2019 10:54 REPORT PM EST EKG 12-LEAD - CMAXX 05/06/2019 10:54 REPORT PM EST EKG 12-LEAD STAT 05/06/2019 10:54 Results for this PM EST procedure are in the results section. XR CHEST FRONTAL ONLY STAT 05/06/2019 10:01 Results for this 31951 PM EST procedure are in the results section. TYPE AND SCREEN Routine 05/06/2019 9:31 Results for this PM EST procedure are in the results section. PARTIAL THROMBOPLASTIN STAT 05/06/2019 7:47 Results for this TIME (PTT) PM EST procedure are in the results section. PROTIME INR STAT 05/06/2019 7:47 Results for this PM EST procedure are in the results section. CBC STAT 05/06/2019 7:47 Results for this PM EST procedure are in the results section. TYPE AND SCREEN STAT 05/06/2019 7:47 Results for this PM EST procedure are in the results section. BASIC METABOLIC PANEL STAT 05/06/2019 7:47 Results for this PM EST procedure are in the results section. documented in this encounter Results EKG 12-LEAD - CMAXX REPORT (05/06/2019 10:54 PM EST) Narrative Performed At EKG 12-LEAD - CMAXX REPORT (05/06/2019 10:54 PM EST) Narrative Performed At EKG 12 Lead (05/06/2019 10:54 PM EST) Specimen Narrative Performed At Ventricular Rate: [facility] EKG 69 BPM Atrial Rate: 69 BPM P-R Interval: 186 ms QRS Duration: 86 ms Q-T Interval: 404 ms QTC Calculation(Bazett): 432 ms P Lowell: 119 degrees R Lowell: 177 degrees T Lowell: 157 degrees : LIMB LEAD MISPLACEMENT : CONSIDER SINUS RHYTHM : NORMAL PRECORDIAL LEAD ECG : NO PREVIOUS ECGS AVAILABLE : Confirmed by NYDIA MCCLURE ([id number]) on 05/07/2019 9:50:52 : AM Procedure Note Interface, Received Via [employer] - 05/07/2019 9:51 AM EST Ventricular Rate: 69 BPM Atrial Rate: 69 BPM P-R Interval: 186 ms QRS Duration: 86 ms Q-T Interval: 404 ms QTC Calculation(Bazett): 432 ms P Lowell: 119 degrees R Lowell: 177 degrees T Lowell: 157 degrees : LIMB LEAD MISPLACEMENT : CONSIDER SINUS RHYTHM : NORMAL PRECORDIAL LEAD ECG : NO PREVIOUS ECGS AVAILABLE : Confirmed by NYDIA MCCLURE ([id number]) on 05/07/2019 9:50:52 : AM Performing Organization Address City/State/Zipcode Phone Number [facility] EKG XR Chest Frontal Only (05/06/2019 10:01 PM EST) Specimen Narrative Performed At PROCEDURE INFORMATION: [facility] Exam: XR Chest, 1 View Exam date and time: 05/06/2019 10:10 PM Age: 78 years old Clinical history: Other: Pre-operative evaluation TECHNIQUE: Imaging protocol: XR of the chest Views: 1 view. COMPARISON: No relevant prior studies available. FINDINGS: Lungs: Degree of lung inflation is normal. No evidence of pulmonary edema. No focal consolidation or parenchymal lung mass. Pleural space: No pleural effusion or pneumothorax. Heart/Mediastinum: Cardiac silhouette appears normal. No adenopathy or hilar mass. Bones/joints: Bony structures show no acute fracture or destructive process. Right clavicle resection and reverse right shoulder arthroplasty changes are present IMPRESSION: No acute or focal cardiopulmonary process. THIS DOCUMENT HAS BEEN ELECTRONICALLY SIGNED BY LULY ANGELES MD Procedure Note Interface, Received Via [employer] - 05/06/2019 10:35 PM EST PROCEDURE INFORMATION: Exam: XR Chest, 1 View Exam date and time: 05/06/2019 10:10 PM Age: 78 years old Clinical history: Other: Pre-operative evaluation TECHNIQUE: Imaging protocol: XR of the chest Views: 1 view. COMPARISON: No relevant prior studies available. FINDINGS: Lungs: Degree of lung inflation is normal. No evidence of pulmonary edema. No focal consolidation or parenchymal lung mass. Pleural space: No pleural effusion or pneumothorax. Heart/Mediastinum: Cardiac silhouette appears normal. No adenopathy or hilar mass. Bones/joints: Bony structures show no acute fracture or destructive process. Right clavicle resection and reverse right shoulder arthroplasty changes are present IMPRESSION: No acute or focal cardiopulmonary process. THIS DOCUMENT HAS BEEN ELECTRONICALLY SIGNED BY LULY ANGELES MD Performing Organization Address City/[facility]/Zipcode Phone Number [facility] [address] [place] [address] Type and Screen (05/06/2019 9:31 PM EST) ABO/RH(D) O POS [facility] Pathology Gel Antibody Screen NEG [facility] Pathology Site Performed at [facility], [facility] [place], [place] Specimen EDTA Whole Blood Performing Organization Address City/[facility]/Zipcode Phone Number [facility] [address] [place] [address] [facility] [address] [place] [address] Pathology Protime-INR (05/06/2019 7:47 PM EST) PT Patient 13.5 12.5 - 14.9 [facility] Path[facility] Int'l Normalized 1.00Comment: Routine [facility] Ratio intensity oral [facility] Clin anticoagulation INR is Pathology typically 2.0-3.0. Target INR must be clinically individualized. Specimen Plasma Performing Organization Address City/[facility] Phone Number [facility] [address] [place] [address] [facility] [address] [place] [address] Pathology Partial Thromboplastin Time (PTT) (05/06/2019 7:47 PM EST) PTT Patient (PAT) 29.3 24.0 - 34.0 s [facility] Pathology Specimen Plasma Performing Organization Address [facility] Phone Number [facility] [address] [place] [address] [phone] [facility] [address] [place] [address] Pathology Basic Metabolic Panel (05/06/2019 7:47 PM EST) Bicarbonate 26 22 - 29 [facility] mmol/L [facility] Pathology Chloride 101 98 - 107 [facility] mmol/L [facility] Pathology Creatinine 1.02 (H) 0.50 - 0.90 [facility] mg/dL [facility] Pathology Glucose 100 70 - 140 [facility] mg/dL [facility] Pathology Potassium 4.9Comment: 3.4 - 5.1 [facility] Hemolyzed mmol/L [facility] Pathology Sodium 138 136 - 145 [facility] mmol/L [facility] Pathology Blood Urea Nitrogen 23 8 - 23 mg/dL [facility]ology Anion Gap 11 8 - 15 mmol/L [facility] Pathology Osmolality, Victorm Anuel 290 275 - 300 [facility] mosm/kg [facility] Pathology BUN/Cre Ratio 23 [facility]ology Calcium 9.0 8.8 - 10.2 [facility] mg/dL [facility] Pathology GFR Non 52 (L) >60 [facility] Fijian 2008 mL/min/1.73m2 [facility] CDK-EPI Pathology GFR 60 (L) >60 [facility] Fijian 2008 mL/min/1.73m2 [facility] CKD-EPI Pathology Specimen Plasma Performing Organization Address City/[facility] Phone Number [facility] [address] [place] [address] [facility] [address] [place] [address] Pathology CBC (05/06/2019 7:47 PM EST) White Blood Cell 8.0 4 - 10 10*3/uL [facility] Pathology Red Blood Cell 3.50 (L) 4.1 - 5.3 [facility] 10*6/uL [facility] Pathology Hemoglobin 11.1 (L) 11.5 - 15.5 [facility] g/dL [facility] Pathology Hematocrit 33.3 (L) 36 - 45 % [facility] Pathology Mean Cell Volume 95.3 80 - 96 fL [facility] Pathology Mean Cell Hemoglobin 31.8 27 - 33 pg [facility] Pathology Mean Cell Hgb Conc 33.4 32.0 - 36.0 [facility] g/dL [facility] Pathology Red Cell Dist Width 14.9 (H) 11.5 - 14.5 % [facility] Pathology Platelet Count 359 150 - 400 [facility] 10*3/uL [facility] Pathology Specimen EDTA Whole Blood Performing Organization Address City/[facility]/Zipcode Phone Number [facility] [address] [place] [address] [facility] [address] [place] [address] Pathology Type and Screen (05/06/2019 7:47 PM EST) ABO/RH(D) TESTING NOT [facility] PERFORMED FOR [facility] BLOOD TYPE Pathology Gel Antibody Screen Specimen [facility] hemolyzed. Floor [facility] notified. Pathology Site Performed at [facility], [facility] Pathology [place], [place] Specimen EDTA Whole Blood Performing Organization Address City/[facility]/Zipcode Phone Number [facility] [address] [place] [address] [phone] [facility] [address] [place] [address] Pathology documented in this encounter Visit Diagnoses Diagnosis Closed fracture of right distal humerus - Primary Closed fracture of unspecified part of lower end of humerus Diagnosis unknown Other unknown and unspecified cause of morbidity or mortality documented in this encounter Administered Medications Medication Order MAR Action Action Date Dose Rate Site acetaminophen (TYLENOL) tablet Given 05/07/2019 4:48 PM EST 650 mg 650 mg 650 mg, Oral, Every 6 hours PRN, Mild Pain (Pain Scale Score 1-3), Starting Sat05/06/19 at 1737, For 30 days, Maximum daily dose of acetaminophen is 3,000 mg from all sources in 24 hours., Given 05/06/2019 6:47 PM EST 650 mg albuterol (PROVENTIL HFA;VENTOLIN HFA) inhaler 2 puff 2 puff, Inhalation, Every 6 hours PRN, Wheezing, Starting Sat05/06/19 at 2245, For 4 days 20 hours, Shake the inhaler well before each spray., amlodipine (NORVASC) tablet 2.5 mg Given 05/10/2019 9:43 AM EST 2.5 mg 2.5 mg, Oral, Daily Standard, First dose on Krista 05/07/19 at 0900, For 30 days, Check vital signs before administering, Given 05/08/2019 8:31 AM EST 2.5 mg Given 05/07/2019 9:16 AM EST 2.5 mg atorvastatin (LIPITOR) tablet 10 mg Given 05/09/2019 8:20 PM EST 10 mg 10 mg, Oral, Every evening, First dose on Sat05/06/19 at 2100, For 30 days Given 05/08/2019 9:03 PM EST 10 mg Given 05/07/2019 9:54 PM EST 10 mg bisacodyl (DULCOLAX) suppository 10 mg 10 mg, Rectal, Daily PRN, Constipation, Starting 05/10/19 at 0801, For 30 days cyclobenzaprine (FLEXERIL) tablet 7.5 mg 7.5 mg, Oral, Three Times Daily-PRN, Muscle spasms, Starting 05/09/19 at 2113, For 30 days diazePAM (VALIUM) tablet 5 mg 5 mg, Oral, Every 6 hours PRN, Anxiety, Starting 05/09/19 at 2113, For 3 days diphenhydrAMINE (BENADRYL) injection 25 mg 25 mg, Intravenous, Every 6 hours PRN, Itching, Nausea, Starting Sat at 1315, For 30 days docusate sodium (COLACE) capsule 100 mg Given 05/10/2019 9:42 AM EST 100 mg 100 mg, Oral, 2 Times Daily, First dose on 05/10/19 at 0900, For 30 days metoclopramide (REGLAN) tablet 5 mg Given 05/10/2019 1:57 PM EST 5 mg 5 mg, Oral, Four Times Daily Standard, First dose (after last reorder) on 05/09/19 at 1700, For 30 days Given 05/10/2019 9:42 AM EST 5 mg Given 05/09/2019 8:20 PM EST 5 mg ondansetron (ZOFRAN) injection 4 mg Given by IV push 05/10/2019 1:59 PM EST 4 mg 4 mg, Intravenous, Every 8 hours PRN, Nausea, Vomiting, Starting Sat05/08/19 at 1051, For 7 days Given by IV push 05/08/2019 11:00 AM EST 4 mg ondansetron (ZOFRAN) tablet 4 mg Given 05/09/2019 2:06 PM EST 4 mg 4 mg, Oral, Every 8 hours PRN, Nausea, Vomiting, Starting Sat05/08/19 at 1051, For 7 days oxyCODONE (ROXICODONE) immediate release Given 05/10/2019 1:58 PM EST 10 mg tablet 10 mg 10 mg, Oral, Every 4 hours PRN, Severe Pain (Pain Scale Score 7-10), Starting Sat05/06/19 at 1832, For 5 days, Oxycodone immediate release is limited to 10 mg per dose. Higher doses ([facility] only) require Pain Service consultation and approval., Given 05/10/2019 9:41 AM EST 10 mg Given 05/09/2019 11:37 PM EST 10 mg oxyCODONE (ROXICODONE) immediate release Given 05/08/2019 9:04 PM EST 5 mg tablet 5 mg 5 mg, Oral, Every 4 hours PRN, Moderate Pain (Pain Scale Score 4-6), Starting Sat05/06/19 at 1737, For 5 days 1 hour, Oxycodone immediate release is limited to 10 mg per dose. Higher doses ([facility] only) require Pain Service consultation and approval., Given 05/07/2019 11:29 PM EST 5 mg Given 05/07/2019 6:44 AM EST 5 mg polyethylene glycol (MIRALAX) packet 17 g Given 05/10/2019 9:43 AM EST 17 g 17 g, Oral, Daily Standard, First dose on 05/10/19 at 0900, For 30 days, Mix in 8 ounces of water, juice or milk. Avoid use in patients who require thickened liquids due to potential increased risk for aspiration., rivaroxaban (XARELTO) tablet 15 mg Given 05/10/2019 9:42 AM EST 15 mg 15 mg, Oral, Daily Standard, First dose on 05/10/19 at 0900, For 30 days Medication Order MAR Action Action Date Dose Rate Site acetaminophen (OFIRMEV) New Bag 05/09/2019 11:19 AM 1,000 mg 400 mL/hr infusion 1,000 mg EST 1,000 mg, Intravenous, Once, 05/09/19 at 1130, For 1 dose, If NPO and has not yet received an acetaminophen product in prior 4 hours., Recovery ceFAZolin (ANCEF) IVPB 2 g in New Bag 05/09/2019 11:30 PM EST 2 g 200 mL/ hr dextrose (premix) 2 g, Intravenous, Administer over 30 Minutes, Every 8 hours, First dose on 05/09/19 at 1630, For 16 hours, 3 gram for patients weighing >/= to 120 kg, New Bag 05/09/2019 3:50 PM EST 2 g 200 mL/hr enoxaparin sodium (LOVENOX) injection 30 mg Given 05/08/2019 9:03 PM EST 30 mg 30 mg, Subcutaneous, Every 12 hours Standard (2 times per day), First dose on Sat05/08/19 at 2100, For 30 days fentaNYL (SUBLIMAZE) (PF) Given by IV push 05/09/2019 12:11 PM EST 25 mcg injection 25 mcg 25 mcg, Intravenous, Every 5 min PRN, Severe Pain (Pain Scale Score 7-10), Starting 05/09/19 at 1118, For 10 doses, Recovery Given by IV push 05/09/2019 11:43 AM EST 25 mcg Given by IV push 05/09/2019 11:34 AM EST 25 mcg fentaNYL (SUBLIMAZE) (PF) Given by IV push 05/09/2019 4:17 PM EST 25 mcg injection 25 mcg 25 mcg, Intravenous, Every 3 hours PRN, breakthrough pain, Starting 05/09/19 at 1545, For 9 hours NaCl infusion 0.9 % New Bag 05/07/2019 9:24 AM EST 100 mL/hr at 100 mL/hr, Intravenous, Continuous, Starting 05/06/19 at 2130, For 1 day New Bag 05/06/2019 10:39 PM EST 100 mL/hr NaCl infusion 0.9 % Rate/Dose Verify 05/08/2019 6:00 PM EST 100 mL/hr at 100 mL/hr, Intravenous, Continuous, Starting Sat05/08/19 at 0430, For 1 day Rate/Dose Verify 05/08/2019 4:00 PM EST 100 mL/hr New Bag 05/08/2019 12:23 PM EST 100 mL/hr NaCl infusion 0.9 % New Bag 05/09/2019 3:50 PM EST 100 mL/hr at 100 mL/hr, Intravenous, Continuous, Starting Sat05/08/19 at 1815, For 1 day Restarted 05/09/2019 1:20 PM EST 100 mL/hr New Bag 05/08/2019 11:20 PM EST 100 mL/hr ondansetron (ZOFRAN) injection 4 mg Given by IV push 05/09/2019 12:00 PM EST 4 mg 4 mg, Intravenous, Once PRN, Nausea, Vomiting, Starting 05/09/19 at 1220, For 1 dose, Recovery documented in this encounter Additional Health Concerns Infection Noted Time Resolved Time 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
--- OUTSIDE RECORDS SUMMARY | 2019-07-03 14:52 | XMS REPORT | Continuity of Care Document ---
:1940 External Reference #:[id number] Author Name MILDRED Frank (transmitted by agent of provider Terri Gallegos) Address [address] [place] [address] Care Team Providers Name Role Phone Jimena Huynh MD - Care Team Information Tank Worker [phone] Ophthalmology Kacy Phelan D.O. - Hematology Care Team Information Tank Worker Kristin Pastor MD - Orthopaedic Care Team Information Tank Worker Surgery Anurag Lagos M.D. - Rheumatology Care Team Information Tank Worker [phone] [facility] - Care Team Information Tank Worker Orthopaedic Surgery Hawa Aguirre MD - Internal Medicine Care Team Information Tank Worker Kacy Colby RPA - Medical Care Team Information Tank Worker Problems Active Problems Provider Date Prosthetic arthroplasty of shoulder Kristin Pastor MD Onset: 02/25/2018 Note: left Total replacement of left knee joint MILDRED Frank Onset: 06/19/2019 Note: and right knee joint Shoulder joint pain Kristin Pastor MD Onset: 02/25/2018 MRSA infection of postoperative wound Onset: 01/05/2015 Note: 2014 ankle Temporomandibular joint click Onset: 04/11/2011 Closed fracture of medial condyle of humerus Kristin Pastor MD Onset: 2018 Note: left Degenerative joint disease involving multiple MILDRED Frank Onset: joints Note: (R) foot, hip, cervical/dorsal/lumbar spine, fingers Glaucoma Onset: 01/01/2018 Allergic rhinitis Onset: 04/11/2011 Note: Allergic conjunctivitis Essential hypertension Onset: 03/09/2015 Hyperlipidemia Onset: 05/10/2016 History of cerebrovascular accident without Onset: 03/09/2015 residual deficits Patent foramen ovale MILDRED Frank Onset: 06/19/2019 Note: noted on GAETANO 11/2014 Peripheral arterial occlusive disease Kacy Colby MILDRED Onset: 06/19/2019 Note: BLE, carotids Atrial fibrillation Onset: 01/05/2015 Note: paroxysmal, Xarelto Social History Type Date Description Comments Sex Unknown Tobacco Use Start: Unknown Never Smoked Cigarettes Smoking Status Reviewed: 06/23/19 Never Smoked Cigarettes ETOH Use Denies alcohol use Tobacco Use Start: Unknown Patient has never smoked Recreational Drug Use Denies Drug Use Exercise Type/Frequency Exercises regularly Allergies, Adverse Reactions, Alerts Active Allergies Reaction Severity Comments Date Morphine Nausea, vomiting 06/19/2019 Plaquenil colitis, diarrhea 06/19/2019 Inactive Allergies NKDA 10/28/2018 Medications Active Medications SIG Qnty Indications Ordering Date Provider Colchicine X 2 wks Anurag Lagos, 06/22/2019 0.6mg Tablets M.D. Arthritis Pain Relief 1 bid 60tabs L94.9 Nick 12/16/2018 650mg MD Adriel Tablets ER Levocetirizine 1 daily 90tabs Nick 12/03/2018 Dihydrochloride MD Adriel 5mg Tablets Cyclobenzaprine HCL 1 by mouth at 30tabs Nick 02/20/2017 5mg Tablets bedtime as MD Adriel needed Calcium 600+D 1 daily 270tabs Nick 01/05/2015 [id number] MD Adriel Tablets Hydrochlorothiazide 1 by mouth 90tabs Nick 01/05/2015 12.5mg every day MD Adriel Tablets Ramipril take 1 capsule 30caps Nick 01/05/2015 5mg Capsules by mouth once MD Adriel a day Refresh Tears 1-2 drops b/l [place], 0.5% Solution to eyes 3-4 MD Jimena times daily as needed Latanoprost daily at night [place], 0.005% Solution MD Jimena Multi For Her Daily Unknown Cranberry Extract daily Unknown Amlodipine Besylate 1 by mouth 30tabs Nick 2.5mg Tablets every day MD Adriel Xarelto 1 by mouth Hawa Aguirre MD 15mg Tablets every day Vesicare 1 by mouth 30tabs Nick 5mg Tablets every day MD Adriel Atorvastatin Calcium 1 by mouth 30tabs Nick 10mg Tablets every day MD Adriel History Medications Ibuprofen 1 tab by mouth every Anurag Lagos M.D. 06/17/2019 - 800mg 12 hours as needed 06/23/2019 Tablets pain, with food Albuterol Sulfate 1-2 inhalations every Anna Joyner, 05/10/2019 - HFA 4 hours as needed [employer] 06/23/2019 108(90Base) mcg/Act Aerosol Immunizations CPT Code Status Date Vaccine Lot # [id number] Given 11/15/2016 Pneumonia Vaccine 25952 Given 03/04/2015 Pneumococcal Conjugate Vaccine 13 Valent For Intramuscular Use 06276 Given 02/04/2013 Tdap - Tetanus/Diptheria/Acellular Pertussis Vital Signs Date Vital Result Comment 06/23/2019 3:43pm Height 63.25 inches 5'3.25" Weight 161.19 lb Heart Rate 90 /min BP Systolic Sitting 138 mmHg BP Diastolic Sitting 74 mmHg O2 % BldC Oximetry 92 % BMI (Body Mass Index) 28.3 kg/m2 05/01/2019 1:30pm Height 63.25 inches 5'3.25" Weight 167.00 lb Heart Rate 80 /min BP Systolic 122 mmHg BP Diastolic 68 mmHg Respiratory Rate 16 /min Body Temperature 98.3 F Pain Level 5 BMI (Body Mass Index) 29.3 kg/m2 Results Description No Information Available Procedures Date Code Description Status 03/12/2019 111607538 Diabetic Retinal Eye Exam Completed 12/03/2018 30661451 Mammogram Completed 04/03/2016 [id number] Colonoscopy Completed Medical Devices Description No Information Available Encounters Type Date Location Provider Dx Diagnosis Office Visit 05/01/2019 [facility] Jordan Sexton, S42.461A Disp fx of 1:30p at [place] [facility] medial condyle of right humerus, init for clos fx Office Visit 04/28/2019 [facility] Kristin Pastor MD S42.461A Disp fx of 10:45a at [place] medial condyle of right humerus, init for clos fx W10.9xxA Fall (on) (from) unspecified stairs and steps, init encntr Office Visit 03/18/2019 [facility] Nick M25.511 Pain in right 10:30a MD Adriel shoulder [facility] Z96.611 Presence of 10:15a Orthopedics at right [place] artificial shoulder joint Assessments Date Code Description Provider 06/23/2019 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, right ankle and MILDRED Frank foot 06/23/2019 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, right shoulder MILDRED Frank 05/01/2019 S42.461A Displaced fracture of medial condyle of Jordan Sexton MD right humerus, initial encounter for closed fracture 04/28/2019 S42.461A Displaced fracture of medial condyle of Kristin Pastor MD right humerus, initial encounter for closed fracture 04/28/2019 W10.9xxA Fall (on) (from) unspecified stairs and Kristin Pastor MD steps, initial encounter 03/18/2019 M25.511 Pain in right shoulder Nick Morel MD 03/05/2019 Z96.611 Presence of right artificial shoulder Kristin Pastor MD joint Plan of Treatment Future Appointment(s):12/21/2019 1:00 pm - MILDRED Frank at [facility]06/25/2019 10:30 am - Kristin Pastor MD at [facility] at [id number] - Kacy Colby PA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, right ankle and foot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, right shoulderAllFollow up:11/2019 for yearly PE Functional Status Description No Information Available Mental Status Description No Information Available Referrals Refer to Reason for Referral Status Appt Date Jarett Asher MD distal humerus fracture Closed [address] [facility] [address] [place] [address] [phone]
--- OUTSIDE RECORDS SUMMARY | 2019-07-03 14:52 | XMS REPORT | Continuity of Care Document ---
:1940 External Reference #:[id number] Author Name MILDRED Frank (transmitted by agent of provider Ashely Doshi) Address [address] [place] [address] Care Team Providers Name Role Phone Jimena Huynh MD - Care Team Information Merchandise Distributor [phone] Ophthalmology Kacy Phelan D.O. - Hematology Care Team Information Merchandise Distributor Kristin Pastor MD - Orthopaedic Care Team Information Merchandise Distributor [phone] Surgery Anurag Lagos M.D. - Rheumatology Care Team Information Merchandise Distributor [facility] - Care Team Information Merchandise Distributor [phone] Orthopaedic Surgery Hawa Aguirre MD - Internal Medicine Care Team Information Merchandise Distributor Kacy Colby RPA - Medical Care Team Information Merchandise Distributor Problems Active Problems Provider Date Prosthetic arthroplasty [...] Onset: 03/09/2015 residual deficits Patent foramen ovale Kacy Colby MILDRED Onset: 06/19/2019 Note: noted on GAETANO 11/2014 [...] Calcium 600+D 1 daily 270tabs Nick 01/05/2015 [id number] MD Adriel Tablets Hydrochlorothiazide 1 by mouth 90tabs Nick 01/05/2015 12.5mg every day MD Adriel Tablets Ramipril take 1 capsule 30caps Nick 01/05/2015 5mg Capsules by mouth once MD Adriel a day Refresh Tears 1-2 drops b/l Fergerson, 0.5% Solution to eyes 3-4 MD Jimena times daily as needed Latanoprost daily at night Fergersalberto, 0.005% Solution MD Jimena Multi For Her [...] 05/10/2019 - HFA 4 hours as needed TRANSPORTATION DEPARTMENT SUPERVISOR 06/23/2019 108(90Base) mcg/Act Aerosol Immunizations CPT Code Status Date Vaccine Lot # [id number] Given 11/15/2016 Pneumonia Vaccine 57134 Given 03/04/2015 Pneumococcal Conjugate Vaccine 13 Valent For Intramuscular Use 83189 Given 02/04/2013 Tdap - Tetanus/Diptheria/Acellular Pertussis Vital [...] Available Procedures Date Code Description Status 03/12/2019 570622950 Diabetic Retinal Eye Exam Completed 12/03/2018 [id number] Mammogram Completed 04/03/2016 [id number] Colonoscopy Completed Medical Devices Description No Information Available Encounters Type Date Location Provider Dx Diagnosis Office Visit 05/01/2019 [facility] Jordan Sexton, S42.461A Disp fx of 1:30p at [place] [facility] medial condyle of right humerus, init for clos fx Office Visit 04/28/2019 [facility] Kristin Pastor MD S42.461A Disp fx of 10:45a at [place] medial condyle of right humerus, init for clos fx W10.9xxA Fall (on) (from) unspecified stairs and steps, init encntr Office Visit 03/18/2019 [facility] Nick M25.511 Pain in right 10:30a MD Adriel shoulder Office Visit 03/05/2019 [facility] MD Z96.611 Presence of 10:15a Orthopedics at right [place] artificial shoulder joint Assessments Date Code Description [...] Appointment(s):12/21/2019 1:00 pm - MILDRED Frank at [facility]06/25/2019 10:30 am - Kristin Pastor MD at [facility] at [id number] - Kacy Colby PA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, right ankle and foot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, right shoulderAllFollow up:11/2019 for yearly PE Functional Status Description No Information Available Mental Status Description No Information Available Referrals Refer to Dr Reason for Referral Status Appt Date Jarett Asher MD distal humerus fracture Closed [address] [facility] [address] [place] [address] [phone]
--- OUTSIDE RECORDS SUMMARY | 2019-07-03 14:52 | XMS REPORT | Continuity of Care Document ---
:1940 External Reference #:[id number] Author Name Kacy Phelan DO (transmitted by agent of provider Chuyita Benavidez) Address [address] [place] [id number] Care Team Providers Name Role Phone Nick Morel MD - Family Care Team Information Tooler Medicine Kristin Pastor MD - Orthopaedic Care Team Information Tooler Surgery Kacy Colby RPAC - Medical Care Team Information Tooler Problems Active Problems Provider Date Screening for malignant neoplasm of Chu Olguin M.D. Onset: colon Shoulder joint pain Jordan Bishop M.D. Onset: 08/10/2015 Full thickness rotator cuff tear Jordan Bishop M.D. Onset: 08/10/2015 Knee joint effusion Jordan Bishop M.D. Onset: 01/20/2016 Poisoning by other synthetic Jordan Bishop M.D. Onset: 01/20/2016 narcotics, undetermined, initial encounter Urinary tract infectious disease Amy Blackman MD Onset: 02/24/2016 Senile asthenia Amy Blackman MD Onset: 02/24/2016 Hemorrhage of colon Juvencio Sparks MD Onset: 04/11/2016 Prosthetic arthroplasty of shoulder Jordan Bsihop M.D. Onset: 06/27/2016 Disorder of shoulder Caro Ceja PA Onset: 03/13/2017 Localized, primary osteoarthritis Mick Currie MD Onset: 10/15/2012 of the ankle and/or foot Arthralgia of the ankle and/or foot Mick Currie MD Onset: 10/15/2012 Localized, primary osteoarthritis Mick Currie MD Onset: 10/15/2012 of the ankle and/or foot Arthralgia of the ankle and/or foot Mick Currie MD Onset: 10/15/2012 Enthesopathy of hip region Onset: 05/18/2003 Anemia Kacy Phelan DO Onset: 11/25/2018 Long-term current use of Kacy Phelan DO Onset: 11/25/2018 anticoagulant Iron deficiency Kacy Phelan DO Onset: 12/05/2018 Vitamin B deficiency Kacy Phelan DO Onset: 06/01/2019 Vitamin D deficiency Kacy Phelan DO Onset: 06/26/2019 Social History Type Date Description Comments Sex Unknown Tobacco Use Start: Unknown Never Smoked Cigarettes ETOH Use Denies alcohol use Tobacco Use Start: Unknown Patient has never smoked Recreational Drug Use Denies Drug Use Smoking Status Reviewed: 06/24/19 Patient has never smoked Allergies, Adverse Reactions, Alerts Active Allergies Reaction Severity Comments Date Morphine 04/16/2013 Medications Active Medications SIG Qnty Indications Ordering Date Provider Xarelto Take 1 Tablet 90tabs Hawa Aguirre MD 06/26/2018 15mg Tablets By Mouth Every Day Hydrochlorothiazide 1 po qd 90tabs Unknown 12.5mg Tablets Multivitamins 1 by mouth 90caps Unknown Capsules every day Cranberry po qd Unknown 140mg Tablets Ramipril 1 po qd 30caps Unknown 5mg Capsules Levocetirizine 1 by mouth Unknown Dihydrochloride every day 5mg Tablets Amlodipine Besylate 1 by mouth 90tabs Hawa Aguirre MD 2.5mg Tablets every day Atorvastatin Calcium 1 by mouth Unknown 10mg Tablets every day Calcium + D3 1 by mouth 60tabs Unknown [id number] every day Tablets Latanoprost 1 drop each eye Unknown 0.005% Solution at night Solifenacin Succinate 1 by mouth Unknown 5mg Tablets every day Refresh use as directed Unknown 1.4-0.6% Solution Acetaminophen ER take one tablet Unknown 650mg Tablets ER by mouth every 4-6 hours as needed for pain Colchicine TK 1 T PO bid Unknown 0.6mg Tablets Medications Administered in Office Medication SIG Qnty Indications Ordering Provider Date Methylprednisolone acetate Salguero, Delilah S., 05/09/2015 (Depomedrol) 80mg injection RPAC Injection Immunizations Description No Information Available Vital Signs Date Vital Result Comment 06/26/2019 3:28pm BP Systolic 141 mmHg BP Diastolic 51 mmHg Body Temperature 98.5 F Heart Rate 73 /min Respiratory Rate 16 /min Weight 160.25 lb O2 % BldC Oximetry 96 % 06/24/2019 1:10pm BP Systolic Sitting Left Arm 126 mmHg BP Diastolic Sitting Left Arm 62 mmHg Heart Rate 63 /min Respiratory Rate 18 /min Weight 161.00 lb O2 % BldC Oximetry 91 % Ora Results Test Acquired Date Facility Test Result H/L Range Note Laboratory test 06/22/2019 [facility] Vitamin 37.2 ng/mL 30.0-100.0 1, 2 [address]25-Hydroxy [place], [place] [address] [phone] Thyroid Stim Hormone 1.34 uIU/mL Normal 0.30-4.20 Erythropoietin (Epo), Serum 15.4 mIU/mL 2.6-18.5 3 Vitamin B12 And 06/22/2019 [facility] Vitamin B12 625 pg/mL Normal 193-[address] [place], [place] [id number] [phone] Folic Acid > 20.0 ng/mL High 3.1-17.5 CBC W/Automated 06/22/2019 [facility] White Blood 6.6 K/uL Normal 3.1-10.[address] Count [place], [place] [id number] [phone] Red Blood Count 3.82 M/uL Low 3.90-5.40 Hemoglobin 11.9 gm/dL Normal 11.6-15.8 Hematocrit 38.5 % Normal 36.0-46.1 Mean Cell Volume 100.8 fl High 80.9-99.0 Mean Corpuscular HGB 31.2 pg Normal 25.9-32.7 Mean Corpuscular HGB Conc 30.9 g/dL Normal 30.8-34.3 Platelet Count 336 K/uL Normal 155-360 Red Cell Distri Width SD 50.7 fl High 36-47 Red Cell Distri Width %CV 13.7 % Normal 11.7-14.4 Mean Platelet Volume 11.1 fl Normal 8.9-12.4 Neut% 78.2 % High 40.4-72.8 Lymph % 12.2 % Low 20.0-42.0 [place] % 6.3 % Normal 4.3-13.2 Eo% 2.7 % Normal 0.0-6.6 Bas% 0.3 % Normal 0.0-1.1 Immature Grans 0.3 % Normal 0.0-5.0 NRBC % 0.0 /100WBC < 10/ 100 WBC Neut# 5.17 K/uL Normal 1.8-7.0 Lymph # 0.81 K/uL Low 1.0-4.0 [place] # 0.42 K/uL Normal 0.3-0.9 Eos # 0.18 K/uL Normal 0.0-0.5 Baso # 0.02 K/uL Normal 0.0-0.1 Immature Grans Absolute 0.02 K/uL NRBC # 0.00 K/uL Comprehensive 06/22/2019 [facility] Glucose 74 mg/dL Normal 74-106 Metabolic Panel [address] [place] [address] [phone] BUN 24 mg/dL High 7-18 Creatinine 1.1 mg/dL Normal 0.6-1.3 Glom Filtration Rate, Estimate 51 mL/min >60 If >60 mL/min >60 4 BUN/Creat 21.8 ratio Sodium 139 mmol/L Normal 136-145 Potassium 3.8 mmol/L Normal 3.5-5.1 Chloride 106 mmol/L Normal 98-107 Carbon Dioxide 27 mmol/L Normal 21-32 Anion Gap 6 mEq/L Low 8-16 Calcium 9.2 mg/dL Normal 8.5-10.1 Total Protein 7.2 g/dL Normal 6.4-8.2 Albumin 3.6 g/dL Normal 3.4-5.0 Globulin 3.6 g/dL Normal 1.9-4.3 Alb/Glob 1.0 ratio Bilirubin,Total 0.3 mg/dL Normal 0.2-1.0 Sgot/Ast 18 U/L Normal 15-37 SGPT/Alt 20 U/L Normal 12-78 Alkaline Phosphatase 100 U/L Normal 45-117 Laboratory test 06/22/2019 [facility] Ferritin 83 ng/mL Normal 8-252 finding [address] [place] [address] [phone] Iron-Tibc-%Sat 06/22/2019 [facility] Serum Iron 72 g/dL Normal 50-170 [address] [place] [address] [phone] Total Iron Binding Capacity 296 g/dL Normal 250-450 Transferrin %Saturation 24 % Normal 12-57 CBC W/Automated 05/18/2019 [facility] White Blood 7.1 K/uL Normal 3.1-10.7 5 Diff [address] [place] [address] [phone] Red Blood Count 3.78 M/uL Low 3.90-5.40 Hemoglobin 11.7 gm/dL Normal 11.6-15.8 Hematocrit 38.2 % Normal 36.0-46.1 Mean Cell Volume 101.1 fl High 80.9-99.0 Mean Corpuscular HGB 31.0 pg Normal 25.9-32.7 Mean Corpuscular HGB Conc 30.6 g/dL Low 30.8-34.3 Platelet Count 547 K/uL High 155-360 Red Cell Distri Width SD 55.4 fl High 36-47 Red Cell Distri Width %CV 14.9 % High 11.7-14.4 Mean Platelet Volume 10.1 fl Normal 8.9-12.4 Neut% 77.6 % High 40.4-72.8 Lymph % 12.5 % Low 20.0-42.0 [place] % 5.8 % Normal 4.3-13.2 Eo% 3.2 % Normal 0.0-6.6 Bas% 0.6 % Normal 0.0-1.1 Immature Grans 0.3 % Normal 0.0-5.0 NRBC % 0.0 /100WBC < 10/ 100 WBC Neut# 5.52 K/uL Normal 1.8-7.0 Lymph # 0.89 K/uL Low 1.0-4.0 [place] # 0.41 K/uL Normal 0.3-0.9 Eos # 0.23 K/uL Normal 0.0-0.5 Baso # 0.04 K/uL Normal 0.0-0.1 Immature Grans Absolute 0.02 K/uL NRBC # 0.00 K/uL Iron-Tibc-%Sat 05/18/2019 [facility] Serum Iron 78 g/dL Normal 50-170 [address] [place] [address] [phone] Total Iron Binding Capacity 298 g/dL Normal 250-450 Transferrin %Saturation 26 % Normal 12-57 Laboratory test 05/18/2019 [facility] Ferritin 195 ng/mL Normal 8-252 finding [address] [place] [address] [phone] Vitamin B12 And 05/18/2019 [facility] Vitamin B12 723 pg/mL Normal 193-986 Folate [address] [place], [place] [id number] [phone] Folic Acid > 20.0 ng/mL High 3.1-17.5 CBC W/Automated 03/09/2019 [facility] White Blood 7.2 K/uL Normal 3.1-10.7 6 Diff [address] [place], [place] [address] [phone] Red Blood Count 3.96 M/uL Normal 3.90-5.40 Hemoglobin 11.5 gm/dL Low 11.6-15.8 Hematocrit 36.5 % Normal 36.0-46.1 Mean Cell Volume 92.2 fl Normal 80.9-99.0 Mean Corpuscular HGB 29.0 pg Normal 25.9-32.7 Mean Corpuscular HGB Conc 31.5 g/dL Normal 30.8-34.3 Platelet Count 344 K/uL Normal 155-360 Red Cell Distri Width SD 70.3 fl High 36-47 Red Cell Distri Width %CV 20.7 % High 11.7-14.4 Mean Platelet Volume 11.0 fl Normal 8.9-12.4 Neut% 73.2 % High 40.4-72.8 Lymph % 15.6 % Low 20.0-42.0 [place] % 8.0 % Normal 4.3-13.2 Eo% 2.4 % Normal 0.0-6.6 Bas% 0.4 % Normal 0.0-1.1 Immature Grans 0.4 % Normal 0.0-5.0 NRBC % 0.0 /100WBC < 10/ 100 WBC Neut# 5.24 K/uL Normal 1.8-7.0 Lymph # 1.12 K/uL Normal 1.0-4.0 [place] # 0.57 K/uL Normal 0.3-0.9 Eos # 0.17 K/uL Normal 0.0-0.5 Baso # 0.03 K/uL Normal 0.0-0.1 Immature Grans Absolute 0.03 K/uL NRBC # 0.00 K/uL Iron-Tibc-%Sat 03/09/2019 [facility] Serum Iron 75 g/dL Normal 50-170 [address] [place], [place] [address] [phone] Total Iron Binding Capacity 290 g/dL Normal 250-450 Transferrin %Saturation 26 % Normal 12-57 Laboratory test 03/09/2019 [facility] Ferritin 223 ng/mL Normal 8-252 finding [address] [place] [address] [phone] Vitamin B12 And 03/09/2019 [facility] Vitamin B12 589 pg/mL Normal 193-986 Folate [address] [place], [place] [address] [phone] Folic Acid > 20.0 ng/mL High 3.1-17.5 Slide Review 03/09/2019 [facility] Slide Review (SEE NOTE) 7 [address] [place] [address] [phone] CBC 01/29/2019 [facility] White Blood 5.2 K/uL Normal 3.1-10. W/Automated [address] [place] [address] [phone] Red Blood Count 4.09 M/uL Normal 3.90-5.40 Hemoglobin 10.9 gm/dL Low 11.6-15.8 Hematocrit 35.6 % Low 36.0-46.1 Mean Cell Volume 87.0 fl Normal 80.9-99.0 Mean Corpuscular HGB 26.7 pg Normal 25.9-32.7 Mean Corpuscular HGB Conc 30.6 g/dL Low 30.8-34.3 Platelet Count 357 K/uL Normal 155-360 Red Cell Distri Width SD 76.0 fl High 36-47 Red Cell Distri Width %CV 25.0 % High 11.7-14.4 Mean Platelet Volume 11.0 fl Normal 8.9-12.4 Neut% 73.9 % High 40.4-72.8 Lymph % 14.6 % Low 20.0-42.0 [place] % 7.8 % Normal 4.3-13.2 Eo% 2.7 % Normal 0.0-6.6 Bas% 0.4 % Normal 0.0-1.1 Immature Grans 0.6 % Normal 0.0-5.0 NRBC % 0.0 /100WBC < 10/ 100 WBC Neut# 3.81 K/uL Normal 1.8-7.0 Lymph # 0.75 K/uL Low 1.0-4.0 [place] # 0.40 K/uL Normal 0.3-0.9 Eos # 0.14 K/uL Normal 0.0-0.5 Baso # 0.02 K/uL Normal 0.0-0.1 Immature Grans Absolute 0.03 K/uL NRBC # 0.00 K/uL Iron-Tibc-%Sat 01/29/2019 [facility] Serum Iron 42 g/dL Low 50-170 [address] [place] [address] [phone] Total Iron Binding Capacity 329 g/dL Normal 250-450 Transferrin %Saturation 13 % Normal 12-57 Laboratory test 01/29/2019 [facility] Ferritin 69 ng/mL Normal 8-252 finding [address] [place] [address] [phone] Vitamin B12 And 01/29/2019 [facility] Vitamin B12 794 pg/mL Normal 193-986 Folate [address] [place] [address] [phone] Folic Acid > 20.0 ng/mL High 3.1-17.5 Slide Review 01/29/2019 [facility] Slide Review . 8 [address] [place] [address] [phone] RBC Morphology Only 01/29/2019 [facility] Hypochromia 0-1+ [address] [place] [address] [phone] Poikilocytosis 0-1+ Anisocytosis 0-1+ Microcytosis 0-1+ Macrocytosis 0-1+ Elliptocytes 0-1+ Comment POSSIBLE SIDEROC <SEE NOTE> 9 1 D64.9 E61.1 E53.9 2 Vitamin D deficiency has been defined by the [place] of [employer] and an Endocrine Society practice guideline as a level of serum 25-OH vitamin D less than 20 ng/mL (1,2). The Endocrine Society went on to further define vitamin D insufficiency as a level between 21 and 29 ng/mL (2). 1. IOM ([place] of [employer]). 2010. Dietary reference intakes for calcium and D. [place]: The National Academies Press. 2. Cb MF, Kelly STACY, Alex RAMOS, et al. Evaluation, treatment, and prevention of vitamin D deficiency: an Endocrine Society clinical practice guideline. JCEM. 2010; 96(1):1911-30. Performed at: - [facility] [address] [id number] Human Resources Operations Director: Jadyn Gross MD, Phone: [phone] 3 [employer] Software DxI 800 Immunoassay System Values obtained with different assay methods or kits cannot be used interchangeably. Results cannot be interpreted as absolute evidence of the presence or absence of malignant disease. Performed at: - [facility] [address] [id number] Human Resources Operations Director: Jadyn Gross MD, Phone: [phone] 4 Note: Persistent reduction for 3 months or more in an eGFR <60 mL/min/1.73 m2 defines CKD. Patients with eGFR values >/=60 mL/min/1.73 m2 may also have CKD if evidence of persistent proteinuria is present. The original MDRD equation for estimated GFR is not valid for patients less than 18 years of age. Additional information may be found at www.kdoqi.org. 5 D64.9 M35.9 6 D64.9 7 Instrument flagged sample for slide review. Less than 10% Bands seen, no other immature WBC's seen. RBC morphology essentially normal. Platelet estimate = NORMAL 8 Instrument flagged sample for slide review. Less than 10% Bands seen, no other immature WBC's seen. 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 I10 Essential (primary) hypertension E78.2 Mixed hyperlipidemia Office Visit 06/01/2019 4:00p Oncology Office [place], D64.9 Anemia, Kacy, DO unspecified E61.1 Iron deficiency E53.9 Vitamin B deficiency, unspecified Office Visit 03/20/2019 4:00p Infusion Center [place], D64.9 Anemia, [place] B., NUCLEAR OPERATOR unspecified E61.1 Iron deficiency Office Visit 02/10/2019 3:30p Oncology Office [place] Marina E61.1 Iron deficiency B., NUCLEAR OPERATOR D64.9 Anemia, unspecified Assessments Date Code Description Provider 06/26/2019 D64.9 Anemia, unspecified Boufal, Kacy, DO 06/26/2019 E61.1 Iron deficiency Boufal, Kacy, DO 06/26/2019 E55.9 Vitamin D deficiency, unspecified Boufal, Kacy, DO 06/26/2019 E53.9 Vitamin B deficiency, unspecified Boufal, Kacy, DO 06/24/2019 I48.0 Paroxysmal atrial fibrillation Hawa Aguirre MD 06/24/2019 I63.40 Cerebral infarction due to embolism of Hawa Aguirre MD unspecified cerebral artery 06/24/2019 I10 Essential (primary) hypertension Hawa Aguirre MD 06/24/2019 E78.2 Mixed hyperlipidemia Hawa Aguirre MD 06/22/2019 D64.9 Anemia, unspecified Boufal, Kacy, DO 06/22/2019 D64.9 Anemia, unspecified Oncology Nurse 06/22/2019 E61.1 Iron deficiency Boufal, Kacy, DO 06/22/2019 E61.1 Iron deficiency Oncology Nurse 06/22/2019 E53.9 Vitamin B deficiency, unspecified Boufal, Kacy, DO 06/22/2019 E53.9 Vitamin B deficiency, unspecified Oncology Nurse 06/01/2019 D64.9 Anemia, unspecified Lisa Phelant, DO 06/01/2019 E61.1 Iron deficiency Kacy Phelan, DO 06/01/2019 E53.9 Vitamin B deficiency, unspecified Lisa Phelant, DO 05/18/2019 D64.9 Anemia, unspecified BoLisa stranget, DO 05/18/2019 D64.9 Anemia, unspecified Oncology Nurse 05/18/2019 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, Kacy Phelan , DO unspecified 05/18/2019 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, Oncology Nurse unspecified 03/20/2019 D64.9 Anemia, unspecified [place] Marina, NUCLEAR OPERATOR 03/20/2019 E61.1 Iron deficiency [place] Marina, NUCLEAR OPERATOR 03/09/2019 D64.9 Anemia, unspecified Kacy Phelan, DO 03/09/2019 D64.9 Anemia, unspecified Oncology Nurse 02/10/2019 E61.1 Iron deficiency [place] Marina, NUCLEAR OPERATOR 02/10/2019 D64.9 Anemia, unspecified [place] Marina, NUCLEAR OPERATOR 01/29/2019 D64.9 Anemia, unspecified Lisa Phelant, DO 01/29/2019 D64.9 Anemia, unspecified Oncology Nurse Plan of Treatment Future Appointment(s):10/02/2019 2:30 pm - Kacy Phelan DO at Oncology [id number]/24/2019 3:00 pm - Oncology Nurse at Oncology Office Functional Status Functional Condition Comment Date Status Glasses Active Mental Status Description No Information Available Referrals Description No Information Available
--- OUTSIDE RECORDS SUMMARY | 2019-07-03 14:52 | XMS REPORT | Summary of Care ---
:1940 Author Organization [facility] Address [address] [place] [address] Care Team Providers Name Role Phone Nick Morel MD Primary Care Provider Reason for Referral Physical Therapy (Routine) Status Reason Specialty Diagnoses / Referred By Referred To Procedures Contact Contact Authorized Diagnoses Other closed displaced fracture of distal end of right humerus with routine healing, subsequent encounter Jarett Malik, Procedures Physical Therapy MD [address] [place] [address] Email: [email or web address] Reason for Visit Reason Comments Follow-up 4wk gee R humerus orif Encounter Details Date Type Department Care Team Description 06/29/2019 Office Visit [facility] Orthopedics, Jarett Malik, Other closed displaced fracture of distal end of right humerus with routine healing, subsequent encounter (Primary Dx); OLIVER GARRETT Displaced fracture of medial condyle of right humerus, initial encounter for closed fracture [address] [facility] [address] [place], [place] [address] [address] [place], [place] [phone] [facility] [phone] Allergies Active Allergy Reactions Severity Noted Date Comments Morphine And Related Nausea And Vomiting High 09/09/2013 Also complains of dizziness documented as of this encounter (statuses as of 06/29/2019) Medications Medication Sig Dispensed Refills Start End Status Date Date calcium-vitamin D Take 1 tablet 0 Active (OSCAL-500) 500-200 by mouth MG-UNIT per tablet daily. Cranberry 400 MG CAPS Take 400 mg 0 Active by mouth daily. Multiple Vitamin Take 1 0 Active (MULTIVITAMIN) capsule capsule by mouth daily. levocetirizine (XYZAL) 5 Take 5 mg by 0 Active MG tablet mouth every evening. ramipril (ALTACE) 5 MG Take 5 mg by 0 Active capsule mouth daily. amlodipine (NORVASC) 2.5 Take 2.5 mg 0 Active MG tablet by mouth daily. solifenacin (VESICARE) 5 Take 10 mg by 0 Active MG tablet mouth daily. atorvastatin (LIPITOR) 10 Take 10 mg by 0 Active MG tablet mouth every evening. Misc. Devices (DURABLE Use as directed. Wrists brace with thumb stabilizer 2 each 0 04/26/20 Active MEDICAL EQUIPMENT SEE Left and right 16 SIG) MISC hydrochlorothiazide TK 1 T PO QD 11 09/02/19 Active (HYDRODIURIL) 12.5 MG 17 tablet carboxymethylcellulose 1 drop Three 0 Active (REFRESH PLUS) 0.5 % SOLN times daily as needed cyclobenzaprine Prn only 1 09/17/19 Active (FLEXERIL) 5 MG tablet 18 latanoprost (XALATAN) INT 1 GTT 5 08/31/19 Active 0.005 % ophthalmic INTO OU QHS 18 solution XARELTO 15 MG tablet Take 1 tablet 3 09/23/19 Active by mouth 19 daily Diclofenac Sodium Apply 1 g 100 g 3 11/14/19 Active (VOLTAREN) 1 % GEL topically 19 Four times daily acetaminophen (TYLENOL) Take 650 mg 0 Active 650 MG CR tablet by mouth every 8 (eight) hours as needed for Pain Albuterol Sulfate HFA 108 Inhale 2 1 Inhaler 11 05/10/20 Active (90 Base) MCG/ACT puffs into 19 020 Inhalation Aerosol the lungs Solution (PROVENTIL every 6 (six) HFA;VENTOLIN HFA) hours as needed for Wheezing Colchicine 0.6 MG Oral Take 1 tablet 30 tablet 0 06/18/19/11/25 Active Tablet by mouth Two 20 020 Times Daily oxyCODONE-Acetaminophen Take 1-2 tabs 56 tablet 0 05/10/20 Discontinued 5-325 MG Oral Tablet by mouth 19 020 (Medication (PERCOCET) every 4-6 Reconcilation) hours as needed for pain. MDD: 8 oxyCODONE HCl 5 MG Oral TK 1 T PO Q 6 0 04/26/20 Discontinued Tablet (ROXICODONE) H PRN FOR (Medication MODERATE P OR Reconcilation) 2 TS Q 6 H FOR SEVERE PAIN. MDD 8 TS Ibuprofen 800 MG Oral TK 1 T PO BID 0 05/15/20 Discontinued Tablet (ADVIL,MOTRIN) (Medication Reconcilation) documented as of this encounter (statuses as of 06/29/2019) Active Problems Problem Noted Date Closed fracture [...] as of this encounter (statuses as of 06/29/2019) Resolved Problems Problem Noted Date Resolved Date Chronic wound of extremity 01/11/2015 03/28/2016 Ankle fracture, right 10/03/2017 Stroke 04/02/2016 documented as of this encounter (statuses as of 06/29/2019) Social History Tobacco Use Types Packs/Day Years Used Date Never Smoker Smokeless Tobacco: Never Used Alcohol Use Drinks/Week oz/Week Comments No Sex Assigned at Date Recorded Not on file Job Start Date Occupation Industry Not on file Not on file Not on file Travel History Travel Start Travel End No recent travel history available. documented as of this encounter Last Filed Vital Signs Not on filedocumented in this encounter Progress Notes Jarett Malik MD - 06/29/2019 10:45 AM ESTEpisode of Care: Subsequent Anatomical Site: right distal humerus Fracture Healing Status: Routine/Expected Date of Surgery: 05/09/2019 CC: s/p ORIF right intra-articular distal humerus fracture HISTORY: Maribell Stiles is a 78 y.o. female approximately 6 weeks s/p ORIF right intra-articular distal humerus fracture . The patient comes in today for a routine follow up visit. The patient reports that their pain is under control. Patient reports her pain and ROM has improved since the previous visit. She states falling last week on her right elbow and opening up the incision site. The patient denies fevers or chills. No new complaints. EXAM: There were no vitals filed for this visit. right Upper Extremity Exam +EPL/+FPL/+FE/+FF/+IO 5/5 strength SILT R/U/M Palpable pulses, Fingers WWP with Brisk Capillary Refill No tenderness to palpation ROM elbow 30 to 105 degrees of flexion 3cm wound along incision site. IMAGING: X-rays of the right elbow show good alignment of the fracture. Signs of interval healing.No loss of reduction. No signs of any loosening or implant failure. ASSESSMENT / PLAN: Maribell Stiles is a 78 y.o. female approximately 6 weeks s/ p ORIF right intra-articular distal humerus fracture . Currently doing well. At this time the patient is WBAT on the right upper extremity. We will recommend starting formal outpatient physical therapy at this time. The patient should work on strength, ROM, and mobility. Thepatient was given instructions to continue working on range of motion at home on their own. The patient did not need a refill of narcotic pain medication at this time. Follow-up: I would like to see the patient back in 8 weeks. X-Rays at next visit: At the next visit the patient needs x-rays of the right elbow I explained to the patient that if there are any problems or issues prior to the next follow up visit, I would like the patient to call with those questions or concerns. I also explained that I'm happy to see the patient back sooner if necessary. This document was dictated using [employer]AKU WAK[employer] ? Medical software. A reasonable attempt at proof reading has been made to minimize errors. Please call our office if you have any questions. Note created by Ashley pimenteliblisa for Dr. Malik. documented in this encounter Plan of Treatment Date Type Specialty Care Team Description 08/31/2019 Office Visit Orthopedic Surgery Jarett Malik MD [address] [place] [address] [phone] 06/24/2020 Office Visit Rheumatology Anurag Lagos MD [address] [facility] [address] [place] [address] [phone] Name Type Priority Associated Diagnoses Date/Time XR Elbow 2 Views Imaging Routine Other closed displaced 06/29/2019 11:13 AM EST Right fracture of distal end of right humerus with routine healing, subsequent encounter Name Type Priority Associated Diagnoses Order Schedule XR Elbow 2 Views Imaging Routine Other closed displaced Expected: 2019, Right fracture of distal end of Expires: 06/25/2021 right humerus with routine healing, subsequent encounter XR Elbow 2 Views Imaging Routine Other closed displaced Expected: 2019, Right fracture of distal end of Expires: 06/29/2021 right humerus with routine healing, subsequent encounter XR Elbow 2 Views Imaging Routine Other closed displaced Expected: 2019, Right fracture of distal end of Expires: 06/29/2021 right humerus with routine healing, subsequent encounter Displaced fracture of medial condyle of right humerus, initial encounter for closed fracture Health Maintenance Due Date Last Done Comments [...] of this encounter Implants Implanted Type Area Muleser Device Shelf Model / Identifier Expiration Serial / Date Lot Chandan Win Rapid Cure 10cc - [id number] Left: Leg Protein Bar [id number] / Implanted: Qty: 1 on 01/11/2015 by Jordan Neil MD at [facility] 07/11-R231 Screw Evos 20mm Ctx 3.5 - [id number] Right: ALBERTO Easley NEPHCHRIST [id number] / Implanted: Qty: 1 on 05/09/2019 by Jarett Malik MD at [facility] Humerus / Screw Evos 22mm Ctx 3.5 - [id number] Right: ALBERTO Easley NEPHCHRIST [id number] / Implanted: Qty: 2 on 05/09/2019 by Jarett Malik MD at [facility] Humerus / Screw Evos 20mm Ctx T8 2.7 - [id number] Right: DOMINGUEZ + NEPHCHRIST [id number] / Implanted: Qty: 1 on 05/09/2019 by Jarett Malik MD at [facility] Humerus / Screw Evos 44mm Ctx T8 2.7 - [id number] Right: DOMINGUEZ + NEPHCHRIST [id number] / Implanted: Qty: 1 on 05/09/2019 by Jarett Malik MD at [facility] Humerus / Screw Evos 2.7 16mm Lk T8 2.7 - [id number] Right: ALBERTO Easley NEPHCHRIST [id number] / Implanted: Qty: 1 on 05/09/2019 by Jarett Malik MD at [facility] Humerus / Screw Evos 2.7 20mm Lk T8 2.7 - [id number] Right: DOMINGUEZ + NEPHCHRIST [id number] / Implanted: Qty: 1 on 05/09/2019 by Jarett Malik MD at [facility] Humerus / Plate 2.7/3.5 M-D Hum 3h R 80mevos - [id number] Right: ALBERTO Easley NEPHCHRIST [id number] / Implanted: Qty: 1 on 05/09/2019 by Jarett Malik MD at [facility] Humerus / documented as of this encounter Results Not on filedocumented in this encounter Visit Diagnoses Diagnosis Other closed displaced fracture of distal end of right humerus with routine healing, subsequent encounter - Primary Displaced fracture of medial condyle of right humerus, initial encounter for closed fracture documented in this encounter Additional Health Concerns Infection Noted Time Resolved Time 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
--- OUTSIDE RECORDS SUMMARY | 2019-07-03 14:52 | XMS REPORT | Summary of Care ---
:1940 Author Organization [facility] Address [address] [place] [address] Care Team Providers Name Role Phone Nick Morel MD Primary Care Provider Reason for Visit Reason Comments Post-op S/p ORIF R humerus Encounter Details Date Type Department Care Team Description 05/25/2019 Office Visit [facility] Orthopedics, Jarett Malik, Other closed displaced LLP fracture of distal end [address] [place] [address] of right humerus with [place], [place] [address] routine healing, [address] [place], [place] subsequent encounter [phone] [address] (Primary Dx) [phone] Allergies Active Allergy Reactions Severity Noted Date Comments Morphine And Related Nausea And Vomiting High 09/09/2013 Also complains of dizziness documented as of this encounter (statuses as of 05/25/2019) Medications Medication Sig Dispensed Refills Start Date End Date Status calcium-vitamin D Take 1 tablet 0 Active (OSCAL-500) 500-200 MG-UNIT by mouth daily. per tablet Cranberry 400 MG CAPS Take 400 mg by 0 Active mouth daily. Multiple Vitamin Take 1 capsule 0 Active (MULTIVITAMIN) capsule by mouth daily. levocetirizine (XYZAL) 5 MG Take 5 mg by 0 Active tablet mouth every evening. ramipril (ALTACE) 5 MG Take 5 mg by 0 Active capsule mouth daily. amlodipine (NORVASC) 2.5 MG Take 2.5 mg by 0 Active tablet mouth daily. solifenacin (VESICARE) 5 MG Take 10 mg by 0 Active tablet mouth daily. atorvastatin (LIPITOR) 10 Take 10 mg by 0 Active MG tablet mouth every evening. Misc. Devices (DURABLE Use as directed. Wrists brace with thumb stabilizer 2 each 0 04/26/2016 Active MEDICAL EQUIPMENT SEE SIG) Left and right MISC hydrochlorothiazide TK 1 T PO QD 11 09/01/2016 Active (HYDRODIURIL) 12.5 MG tablet carboxymethylcellulose 1 drop Three 0 Active (REFRESH PLUS) 0.5 % SOLN times daily as needed cyclobenzaprine (FLEXERIL) Prn only 1 09/16/2017 Active 5 MG tablet latanoprost (XALATAN) 0.005 INT 1 GTT INTO 5 08/30/2017 Active % ophthalmic solution OU QHS XARELTO 15 MG tablet Take 1 tablet 3 09/22/2018 Active by mouth daily Diclofenac Sodium Apply 1 g 100 g 3 2018 Active (VOLTAREN) 1 % GEL topically Four times daily acetaminophen (TYLENOL) 650 Take 650 mg by 0 Active MG CR tablet mouth every 8 (eight) hours as needed for Pain Albuterol Sulfate HFA 108 Inhale 2 puffs 1 Inhaler 11 05/10/2019 05/08/20 Active (90 Base) MCG/ACT into the lungs 20 Inhalation Aerosol Solution every 6 (six) (PROVENTIL HFA;VENTOLIN hours as needed HFA) for Wheezing oxyCODONE-Acetaminophen Take 1-2 tabs 56 tablet 0 05/10/2019 Active 5-325 MG Oral Tablet by mouth every (PERCOCET) 4-6 hours as needed for pain. MDD: 8 Additional information Patient not taking. Reported on 05/25/2019 2:06 PM oxyCODONE HCl 5 MG Oral Tablet TK 1 T PO Q 6 H PRN FOR 0 04/26/2019 Active (ROXICODONE) MODERATE P OR 2 TS Q 6 H FOR SEVERE PAIN. MDD 8 TS Ibuprofen 800 MG Oral Tablet TK 1 T PO BID 0 05/15/2019 Active (ADVIL,MOTRIN) documented as of this encounter (statuses as of 05/25/2019) Active Problems Problem Noted Date Closed fracture [...] as of this encounter (statuses as of 05/25/2019) Resolved Problems Problem Noted Date Resolved Date Chronic wound of extremity 01/11/2015 03/28/2016 Ankle fracture, right 10/03/2017 Stroke 04/02/2016 documented as of this encounter (statuses as of 05/25/2019) Social History Tobacco Use Types Packs/Day Years [...] on filedocumented in this encounter Progress Notes oRm Allen MD - 05/25/2019 2:15 PM ESTEpisode of Care: Subsequent Anatomical Site: Right distal humerus Fracture Healing Status: Routine/Expected Date of Surgery: 05/09/2019 CC: Status post open reduction internal fixation of right intra-articular distal humerus fracture HISTORY: Maribell Stiles is a 78 y.o. Female approximately 2 weeks s/p Open reduction internal fixation of right intra-articular distal humerus fracture. The patient comes in today for a routine follow up visit. The patient reports that their pain is under control. She has been doing some range ofmotion exercises at home. Denies paresthesias in her hand. The patient denies fevers or chills. No new complaints. EXAM: There were no vitals filed for this visit. right Upper Extremity Exam +EPL/+FPL/+FE/+FF/+IO SILT R/U/M Palpable pulses, Fingers WWP with Brisk Capillary Refill Incision clean and dry ROM limited secondary to pain IMAGING: No new xrays taken at today's visit. ASSESSMENT / PLAN: Maribell Stiles is a 78 y.o. Female approximately 2 weeks s/ p Open reduction internal fixation of right distal humerus fracture. Currently doing well. [place] removed in the officetoday At this time the patient is Less than 2 pounds weightbearing on the Right upper extremity. We will hold off on physical therapy at this time. Therapy may be ordered at the next office visit. The patient was given instructions to work on range of motion at home on their own. The patient did not need a refill of narcotic pain medication at this time. Follow-up: I would like to see the patient back in 4 weeks. X-Rays at next visit: At the next visit the patient needs x-rays of the Right elbow I explained to the patient that if there are any problems or issues prior to the next follow up visit, I would like the patient to call with those questions or concerns. I also explained that I'm happy to see the patient back sooner if necessary. This document was dictated using Yovia software. A reasonable attempt at proof reading has been made to minimize errors. Please call our office if you have any questions. ATTENDING PHYSICIAN ATTESTATION: I have personally seen and examined this patient in detail with the resident. I have reviewed all labs, images and findings myself and I agree with the assessment and plan as outlined in the note. Jarett Malik MD documented in this encounter Plan of Treatment Date Type Specialty Care Team Description 06/18/2019 Office Visit Rheumatology Anurag Lagos MD [address] [facility] [place] [address] [place] [address] [phone] 06/29/2019 Office Visit Orthopedic Surgery Jarett Malik MD [address] [place] [address] [phone] Health Maintenance Due Date Last Done Comments [...] of this encounter Implants Implanted Type Area Manager Field Services Device Shelf Model / Identifier Expiration Serial / Date Lot Chandan Win Rapid Cure 10cc - [id number] Left: Leg DoublePositive [id number] [id number] / Implanted: Qty: 1 on 01/11/2015 by Jordan Neil MD at [facility] / 07/11-R231 Screw Evos 20mm Ctx 3.5 - [id number] Right: DOMINGUEZ + NEPHCHRIST [id number] / Implanted: Qty: 1 on 05/09/2019 by Jarett Malik MD at [facility] Humerus / Screw Evos 22mm Ctx 3.5 - [id number] Right: DOMINGUEZ + NEPHEW [id number] / Implanted: Qty: 2 on 05/09/2019 by Jarett Malik MD at [facility] Humerus / Screw Evos 20mm Ctx T8 2.7 - [id number] Right: DOMINGUEZ + NEPHEW [id number] / Implanted: Qty: 1 on 05/09/2019 by Jarett Malik MD at [facility] Humerus / Screw Evos 44mm Ctx T8 2.7 - [id number] Right: DOMINGUEZ + NEPHEW [id number] / Implanted: Qty: 1 on 05/09/2019 by Jarett Malik MD at [facility] Humerus / Screw Evos 2.7 16mm Lk T8 2.7 - [id number] Right: ALBERTO + NEPHCHRIST [id number] / Implanted: Qty: 1 on 05/09/2019 by Jarett Malik MD at [facility] Humerus / Screw Evos 2.7 20mm Lk T8 2.7 - [id number] Right: ALBERTO Easley NEPHEW [id number] / Implanted: Qty: 1 on 05/09/2019 by Jarett Malik MD at OR [facility] Humerus / Plate 2.7/3.5 M-D Hum 3h R 80mevos - [id number] Right: DOMINGUEZ + NEPHEW [id number] / Implanted: Qty: 1 on 05/09/2019 by Jarett Malik MD at [facility] Humerus / documented as of this encounter Results Not on filedocumented in this encounter Visit Diagnoses Diagnosis Other closed displaced fracture of distal end of right humerus with routine healing, subsequent encounter - Primary documented in this encounter Additional Health Concerns Infection Noted Time Resolved Time 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
--- OUTSIDE RECORDS SUMMARY | 2019-07-03 14:52 | XMS REPORT | Continuity of Care Document ---
:1940 External Reference #:[id number] Author Name Kristin Pastor MD (transmitted by agent of provider Theresa Ribeiro) Address [address] [facility], [facility] [place] [address] Care Team Providers Name Role Phone Jimena Huynh MD - Care Team Information Dry Plasterer Helper [phone] Ophthalmology Kacy Phelan D.O. - Hematology Care Team Information Dry Plasterer Helper [phone] Kristin Pastor MD - Orthopaedic Care Team Information Dry Plasterer Helper Surgery Anurag Lagos M.D. - Rheumatology Care Team Information Dry Plasterer Helper [facility] - Care Team Information Dry Plasterer Helper [phone] Orthopaedic Surgery Hawa Aguirre MD - Internal Medicine Care Team Information Dry Plasterer Helper [phone] Kacy Colby RPA - Medical Care Team Information Dry Plasterer Helper [phone] Problems Active Problems Provider Date Prosthetic arthroplasty [...] GAETANO 11/2014 Peripheral arterial occlusive disease Kacy RichmondMILDRED Onset: 06/19/2019 Note: BLE, carotids Atrial fibrillation Onset: 01/05/2015 Note: paroxysmal, Xarelto Social History Type Date Description Comments Sex Unknown Tobacco Use Start: Unknown Never Smoked Cigarettes Smoking Status Reviewed: 06/25/19 Never Smoked Cigarettes ETOH Use Denies alcohol [...] Calcium 600+D 1 daily 270tabs Nick 01/05/[phone] MD Adriel Tablets Hydrochlorothiazide 1 by mouth 90tabs Bartley 01/05/2015 12.5mg every day MD Adriel Tablets [...] every day Vesicare 1 by mouth 30tabs Inck 5mg Tablets every day MD Adriel Atorvastatin Calcium 1 by mouth 30tabs Nick 10mg Tablets every day MD Adriel History Medications Ibuprofen 1 tab by mouth every Anurag Lagos M.D. 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 06/23/2019 108(90Base) mcg/Act Aerosol Immunizations CPT Code Status Date Vaccine Lot # [id number] Given 11/15/2016 Pneumonia Vaccine 50103 Given 03/04/2015 Pneumococcal Conjugate Vaccine 13 Valent For Intramuscular Use 35135 Given 02/04/2013 Tdap - Tetanus/Diptheria/Acellular Pertussis Vital Signs Date Vital Result Comment 06/25/2019 10:25am Height 63.25 inches 5'3.25" Weight 161.00 lb Heart Rate 74 /min Respiratory Rate 14 /min Body Temperature 98.1 F Pain Level 2 BMI (Body Mass Index) 28.3 kg/m2 06/23/2019 3:43pm Height 63.25 inches 5'3.25" Weight 161.19 lb Heart Rate 90 /min BP Systolic Sitting 138 mmHg BP Diastolic Sitting 74 mmHg O2 % BldC Oximetry 92 % BMI (Body Mass Index) 28.3 kg/m2 Results Description No Information Available Procedures Date Code Description Status 03/12/2019 061520632 Diabetic Retinal Eye Exam Completed 12/03/2018 [id number] Mammogram Completed 04/03/2016 [id number] Colonoscopy Completed Medical Devices Description No Information Available Encounters Type Date Location Provider Dx Diagnosis Office Visit 05/01/2019 [facility] Jordan Sexton, S42.461A Disp fx of 1:30p at [place] medial condyle of right humerus, init for clos fx Office Visit 04/28/2019 [facility] Kristin Pastor MD S42.461A Disp fx of 10:45a at [place] medial condyle of right humerus, init for clos fx W10.9xxA Fall (on) (from) unspecified stairs and steps, init encntr Office Visit 03/18/2019 [facility] Nick M25.511 Pain in right 10:30a MD Adriel shoulder Office Visit 03/05/2019 Nilson Pastor MD Z96.611 Presence of 10:15a 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
--- OUTSIDE RECORDS SUMMARY | 2019-07-03 14:52 | XMS REPORT | Summary of Care ---
:1940 Author Organization [facility] Address [address] [place] [id number] Care Team Providers Name Role Phone Nick Morel MD Primary Care Provider Reason for Visit Reason Comments Follow-up Encounter Details Date Type Department Care Team Description 06/18/2019 Office Visit Chidi Jeffers MD Connective tissue Rheumatology 90 [facility], [address] [place] [address] 2nd Floor (Primary Dx) [id number] [place] [address] [phone] Allergies Active Allergy Reactions Severity Noted Date Comments Morphine And Related Nausea And Vomiting High 09/09/2013 Also complains of dizziness documented as of this encounter (statuses as of 06/18/2019) Medications Medication Sig Dispensed Refills Start Date [...] 2:06 PM oxyCODONE HCl 5 MG Oral TK 1 T PO Q 6 H PRN 0 04/26/2019 Active Tablet (ROXICODONE) FOR MODERATE P OR 2 TS Q 6 H FOR SEVERE PAIN. MDD 8 TS Ibuprofen 800 MG Oral TK 1 T PO BID 0 05/15/2019 Active Tablet (ADVIL,MOTRIN) Colchicine 0.6 MG Oral Take 1 tablet by 30 tablet 0 06/18/2019 07/03/2019 Active Tablet mouth Two Times Daily documented as of this encounter (statuses as of 06/18/2019) Active Problems Problem Noted Date Closed fracture [...] as of this encounter (statuses as of 06/18/2019) Resolved Problems Problem Noted Date Resolved Date Chronic wound of extremity 01/11/2015 03/28/2016 Ankle fracture, right 10/03/2017 Stroke 04/02/2016 documented as of this encounter (statuses as of 06/18/2019) Social History Tobacco Use Types Packs/Day Years [...] Sign Reading Time Taken Comments Blood Pressure 128/69 06/18/2019 12:53 PM EST Pulse 84 06/18/2019 12:53 PM EST Temperature 37.1 06/18/2019 12:53 PM EST C (98.7 F) Respiratory Rate 15 06/18/2019 12:53 PM EST Oxygen Saturation 96% 06/18/2019 12:53 PM EST Inhaled Oxygen Concentration - - Weight 72.6 kg (160 lb) 06/18/2019 12:53 PM EST Height 162.6 cm (5' 4") 06/18/2019 12:53 PM EST Body Mass Index 27.46 06/18/2019 12:53 PM EST documented in this encounter Progress Notes Chidi Lagos MD - 06/18/2019 12:45 PM EST Subjective: Patient ID: Maribell Stiles is [...] year. She was suggested to see a sales appointment coordinator to rule out rheumatoid arthritis. She did [...] UCTD. Recommended hydroxychloroquine 200mg bid. Need yearly tunneller exam to monitor retinaltoxicity. Side effect explained. E -prescribed 60+11. On 04/26/2016, she came in for follow up. The patient tried Plaquenil, but developed severe diarrhea after 2 days. The diarrhea persisted, becoming abdominal cramping and bloody diarrhea. She was admitted to [facility]. Plaquenil was discontinued. CT scan suspected colitis. [...] as needed. will do hands x-ray at [facility]. On 02/13/2019, the patient came in for follow up. Left hand x-ray was unremarkable. She was found to have iron deficiency anemia. Received 6 iron infusions so far. Follow with Hematology/Oncology. Just had labs done last week. CBC showed H/H 03/25. Mild low iron but ferritin normal. She [...] the patient came in for follow up. Repeat serology in January, centromere 176, SSA 123, CHAD speckled pattern 50. She does have dry eyes, but no dry mouth. She does not have Raynaud phenomenon. No interstitial lung disease. No muscle disease. Will repeat that serology at outside lab next month. She was found to have iron deficiency anemia since the summer of 2018. She was referred to Hematology Oncology, Dr. Phelan, received a few sessions of iron infusion. Not clear sure whymian has iron deficiency, though. [facility] April 25, 2019, [facility] the rightupper arm and elbow. She had a right arm surgery on May 09- by Orthopedics in [place]. 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 Because she is on blood thinner, she is only able to take Tylenol 650 mg as needed for arthritis pain. She did have diarrhea back in 2016 with hydroxychloroquine. She has a right wrist brace, which does help with the right wrist and hand pain. On 06/18/2019, the patient came in for follow up. Dictation on: 06/18/2019 1: 16 PM by: CHIDI LAGOS [[id number]] Review of Systems Per HPI. 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 ORIF HUMERUS FRACTURE IN FREE SKIN FLAP W MICROVASC ANAST Left 01/11/2015 Procedure: LEFT RADIAL FOREARM FREE FLAP TO RIGHT ANKLE WOUND, SPLIT THICKNESS SKIN GRAFT TO DONOR PLACEMENT OF ANTIBIOTIC BEEDS, IRRIGATION AND DEBRIDEMENT SITE PER DR. CHOUDHURY ; Surgeon: Jordan Neil MD; Location: [address]; Service: Orthopedics; Laterality: Left; ROTATOR CUFF [...] topically Four times daily 100 g 3 hydrochlorothiazide (HYDRODIURIL) 12.5 MG tablet TK 1 T PO QD 11 Ibuprofen 800 MG Oral Tablet (ADVIL,MOTRIN) TK 1 T PO BID latanoprost (XALATAN) 0.005 % ophthalmic solution INT 1 GTT INTO OU QHS 5 levocetirizine (XYZAL) 5 MG tablet Take 5 mg by mouth every evening. Misc. Devices (DURABLE MEDICAL EQUIPMENT SEE SIG) MISC Use as directed. Wrists brace with thumb stabilizer Left and right 2 each 0 Multiple Vitamin (MULTIVITAMIN) capsule Take 1 capsule by mouth daily. oxyCODONE HCl 5 MG Oral Tablet (ROXICODONE) TK 1 T PO Q 6 H PRN FOR MODERATE P OR 2 TS Q 6 H FOR SEVERE PAIN. MDD 8 TS oxyCODONE-Acetaminophen 5-325 MG Oral Tablet (PERCOCET) Take 1-2 tabs by mouth every 4-6 hours as needed for pain. MDD: 8 (Patient not taking: Reported on 05/25/2019) 56 tablet 0 ramipril (ALTACE) 5 MG capsule Take 5 mg by mouth daily. solifenacin (VESICARE) 5 MG tablet Take 10 mg by mouth daily. XARELTO 15 MG tablet Take 1 tablet by mouth daily 3 No current facility-administered medications for this visit. Objective: Physical Exam Visit Vitals BP 128/69 Pulse 84 Temp 37.1 C (98.7 F) (Tympanic) Resp 15 Ht 1.626 m (5' 4") Wt 72.6 kg (160 lb) SpO2 96% BMI 27.46 kg/m HEENT: no facial erythema, hearing grossly [...] and tender, limited ROM. Both knees replaced. Limited ROM of right elbow, right wrist tender at ulnar side. Data reviewed: Labs done 01/17/2016 CMP normal. [...] 05/06/2019 NEG Final Site 05/06/2019 Performed at [place], [place] Final Hands x-ray 03/16/2016 suggesting early [...] 7. Right arm fracture 04/25/2019. S/P surgery. 8. Right wrist pain at ulnar side. OA vs pseudogout. Plan: - Maribell was seen today for follow-up. Diagnoses and all orders for this visit: Connective tissue disease, undifferentiated Other orders - Colchicine 0.6 MG Oral Tablet; Take 1 tablet by mouth Two Times Daily - off ibuprofen. - Tylenol 650mg tid prn. - colchicine 0.6mg bid for 2 weeks. E-prescribed. - Activities as tolerated. - RV in 12 months; above findings, analysis and plan were all discussed with the patient and her questions were answered as much as possible. documented in this encounter Plan of Treatment Date Type Specialty Care Team Description 06/29/2019 Office Visit Orthopedic Surgery Jarett Malik MD [address] [place] [address] [phone] 06/24/2020 Office Visit Rheumatology Chidi Lagos MD 90 [facility] 2nd [place] [address] [phone] Health Maintenance Due Date Last Done Comments [...] of this encounter Implants Implanted Type Area Weather Forcaster Device Shelf Model / Identifier Expiration Serial / Date Lot Beads Stimulan Rapid Cure 10cc - [id number] Left: [employer] 620-010 / Implanted: Qty: 1 on 01/11/2015 by Jordan Neil MD at OR 07/11-R231 Screw Evos 20mm Ctx 3.5 - [id number] Right: ALBERTO TAYLOR [id number] / Implanted: Qty: 1 on 05/09/2019 by Jarett Malik MD at OR 5E Humerus / Screw Evos 22mm Ctx 3.5 - [id number] Right: ALBERTO TAYLOR [id number] / Implanted: Qty: 2 on 05/09/2019 by Jarett Malik MD at OR 5E Humerus / Screw Evos 20mm Ctx T8 2.7 - [id number] Right: ALBERT[employer] TAYLOR [id number] / Implanted: Qty: 1 on 05/09/2019 by Jarett Malik MD at OR 5E Humerus / Screw Evos 44mm Ctx T8 2.7 - [id number] Right: [employer]W [id number] / Implanted: Qty: 1 on 05/09/2019 by Jarett Malik MD at OR 5E Humerus / Screw Evos 2.7 16mm Lk T8 2.7 - [id number] Right: DOMINGUEZ [employer] NEPHEW [id number] / Implanted: Qty: 1 on 05/09/2019 by Jarett Malik MD at OR 5E Humerus / Screw Evos 2.7 20mm Lk T8 2.7 - [id number] Right: [employer]PHEW [id number] / Implanted: Qty: 1 on 05/09/2019 by Jarett Malik MD at OR 5E Humerus / Plate 2.7/3.5 M-D Hum 3h R 80mevos - [id number] Right: DOMING[employer]Z [employer] NEPHEW [id number] / Implanted: Qty: 1 on 05/09/2019 by [...]
--- OUTSIDE RECORDS SUMMARY | 2019-07-03 14:52 | XMS REPORT | Continuity of Care Document ---
:1940 External Reference #:[id number] Author Name OscarKacy cordero, DO Address [address] [place] [id number] Care Team Providers Name Role Phone Nick Morel MD - Family Care Team Information [employer] [phone] Medicine Kristin Pastor MD - Orthopaedic Care Team Information [employer] [phone] Surgery Problems Active Problems Provider Date Screening for [...] Onset: 04/11/2016 Prosthetic arthroplasty of shoulder Jordan Bishop M.D. Onset: 06/27/2016 Disorder of shoulder Caro [...] B deficiency Kacy Phelan DO Onset: 06/01/2019 Social History Type Date Description Comments Sex [...] SIG Qnty Indications Ordering Date Provider Xarelto 1 by mouth 90tabs Hawa Aguirre MD 06/26/2018 15mg Tablets every day Hydrochlorothiazide 1 po qd 90tabs Unknown 12.5mg [...] + D3 1 by mouth 60tabs Unknown [id number]-Lypr every day Tablets Latanoprost 1 drop each eye Unknown 0.005% Solution at night Solifenacin Succinate 1 by mouth Unknown 5mg Tablets every day Refresh use as directed Unknown 1.4-0.6% Solution Acetaminophen ER take one tablet Unknown 650mg Tablets ER by mouth every 4-6 hours as needed for pain Medications Administered in Office Medication SIG Qnty Indications Ordering Provider Date Methylprednisolone acetate Delilah Salguero, 05/09/2015 (Depomedrol) 80mg injection RPAC Injection Immunizations Description No Information Available Vital Signs Date Vital Result Comment 06/01/2019 4:13pm BP Systolic 124 mmHg BP Diastolic 68 mmHg Body Temperature 97.9 F Heart Rate 74 /min Respiratory Rate 18 /min Weight 159.25 lb Pain Level 0 O2 % BldC Oximetry 98 % 03/20/2019 4:11pm BP Systolic 126 mmHg BP Diastolic 70 mmHg Body Temperature 98.7 F Heart Rate 80 /min Respiratory Rate 18 /min Weight 162.12 lb Pain Level 0 O2 % BldC Oximetry 96 % Results Test Acquired Date Facility Test Result H/L Range Note CBC 05/18/2019 [facility] White Blood 7.1 K/uL Normal 3.1-10.7 1 W/Automated [address] [place] [address] [phone] Red Blood Count 3.78 M/uL Low 3.90-5.40 [...] 40.4-72.8 Lymph % 12.5 % Low 20.0-42.0 [place] % 5.8 % Normal 4.3-13.2 Eo% 3.2 % Normal 0.0-6.6 Bas% 0.6 % Normal 0.0-1.1 Immature Grans 0.3 % Normal 0.0-5.0 NRBC % 0.0 /100WBC < 10/ 100 WBC Neut# 5.52 K/uL Normal 1.8-7.0 Lymph # 0.89 K/uL Low 1.0-4.0 [place] # 0.41 K/uL Normal 0.3-0.9 Eos # 0.23 K/uL Normal 0.0-0.5 Baso # 0.04 K/uL Normal 0.0-0.1 Immature Grans Absolute 0.02 K/uL NRBC # 0.00 K/uL Iron-Tibc-%Sat 05/18/2019 [facility] Serum Iron 78 g/dL Normal 50-170 [address] [place] [address] [phone] Total Iron Binding Capacity 298 g/dL Normal 250-450 Transferrin %Saturation 26 % Normal 12-57 Laboratory test 05/18/2019 [facility] Ferritin 195 ng/mL Normal 8-252 finding [address] [place] [address] [phone] Vitamin B12 And 05/18/2019 [facility] Vitamin B12 723 pg/mL Normal 193-986 Folate [address] [place], [place] [id number] [phone] Folic Acid > 20.0 ng/mL High 3.1-17.5 CBC W/Automated 03/09/2019 [facility] White Blood 7.2 K/uL Normal 3.1-10.7 2 Diff [address] Count [place], [place] [id number] [phone] Red Blood Count 3.96 M/uL Normal 3.90-5.40 [...] 40.4-72.8 Lymph % 15.6 % Low 20.0-42.0 [place] % 8.0 % Normal 4.3-13.2 Eo% 2.4 % Normal 0.0-6.6 Bas% 0.4 % Normal 0.0-1.1 Immature Grans 0.4 % Normal 0.0-5.0 NRBC % 0.0 /100WBC < 10/ 100 WBC Neut# 5.24 K/uL Normal 1.8-7.0 Lymph # 1.12 K/uL Normal 1.0-4.0 [place] # 0.57 K/uL Normal 0.3-0.9 Eos # 0.17 K/uL Normal 0.0-0.5 Baso # 0.03 K/uL Normal 0.0-0.1 Immature Grans Absolute 0.03 K/uL NRBC # 0.00 K/uL Iron-Tibc-%Sat 03/09/2019 [facility] Serum Iron 75 g/dL Normal 50-170 [address] [place] [address] [phone] Total Iron Binding Capacity 290 g/dL Normal 250-450 Transferrin %Saturation 26 % Normal 12-57 Laboratory test 03/09/2019 [facility] Ferritin 223 ng/mL Normal 8-252 finding [address] [place] [address] [phone] Vitamin B12 And 03/09/2019 [facility] Vitamin B12 589 pg/mL Normal 193-986 Folate [address] [place] [address] [phone] Folic Acid > 20.0 ng/mL High 3.1-17.5 Slide Review 03/09/2019 [facility] Slide Review (SEE NOTE) 3 [address] [place] [address] [phone] CBC 01/29/2019 [facility] White Blood 5.2 K/uL Normal 3.1-10. W/Automated [address] [facility] Count [address] [place] [address] [phone] Red Blood Count 4.09 M/uL Normal 3.90-5.40 [...] 40.4-72.8 Lymph % 14.6 % Low 20.0-42.0 [place] % 7.8 % Normal 4.3-13.2 Eo% 2.7 % Normal 0.0-6.6 Bas% 0.4 % Normal 0.0-1.1 Immature Grans 0.6 % Normal 0.0-5.0 NRBC % 0.0 /100WBC < 10/ 100 WBC Neut# 3.81 K/uL Normal 1.8-7.0 Lymph # 0.75 K/uL Low 1.0-4.0 [place] # 0.40 K/uL Normal 0.3-0.9 Eos # 0.14 K/uL Normal 0.0-0.5 Baso # 0.02 K/uL Normal 0.0-0.1 Immature Grans Absolute 0.03 K/uL NRBC # 0.00 K/uL Iron-Tibc-%Sat 01/29/2019 [facility] Serum Iron 42 g/dL Low 50-170 [address] [place] [address] [phone] Total Iron Binding Capacity 329 g/dL Normal 250-450 Transferrin %Saturation 13 % Normal 12-57 Laboratory test 01/29/2019 [facility] Ferritin 69 ng/mL Normal 8-252 finding [address] [place], [place] [address] [phone] Vitamin B12 And 01/29/2019 [facility] Vitamin B12 794 pg/mL Normal 193-986 Folate [address] [place] [address] [phone] Folic Acid > 20.0 ng/mL High 3.1-17.5 Slide Review 01/29/2019 [facility] Slide Review . 4 [address] [place] [address] [phone] RBC Morphology Only 01/29/2019 [facility] Hypochromia 0-1+ [address] [place] [address] [phone] Poikilocytosis 0-1+ Anisocytosis 0-1+ Microcytosis 0-1+ Macrocytosis 0-1+ Elliptocytes 0-1+ Comment POSSIBLE SIDEROC <SEE NOTE> 5 1 D64.9 M35.9 2 D64.9 3 Instrument flagged sample for slide review. Less than 10% Bands seen, no other immature WBC's seen. RBC morphology essentially normal. Platelet estimate = NORMAL 4 Instrument flagged sample for slide review. Less than 10% Bands seen, no other immature WBC's seen. Platelet estimate = NORMAL 5 POSSIBLE SIDEROCYTES Procedures Date Code Description Status 04/03/2016 45040716 Colonoscopy Completed 05/27/2014 [id number] Colonoscopy Completed 04/25/59 [id number] Colonoscopy Completed 04/25/49 [id number] Colonoscopy Completed Medical Devices Description No Information Available Encounters Type Date Location Provider Dx Diagnosis Office Visit 03/20/2019 Infusion [facility] [place] D64.9 Anemia, unspecified 4:00p B., MANUFACTURE SPECIALIST E61.1 Iron deficiency Office Visit 02/10/2019 3:30p Oncology Office [place] E61.1 Iron deficiency Ramy MANUFACTURE SPECIALIST D64.9 Anemia, unspecified Office Visit 12/05/2018 4:30p Oncology Office [place], E61.1 Iron deficiency Kacy, DO D64.9 Anemia, unspecified Assessments Date Code Description Provider 06/01/2019 D64.9 Anemia, unspecified Kacy Phelan, DO 06/01/2019 E61.1 Iron deficiency Kacy Phelan, DO 06/01/2019 E53.9 Vitamin B deficiency, unspecified Kacy Phelan, DO 05/18/2019 D64.9 Anemia, unspecified BoLisa stranget, DO 05/18/2019 D64.9 Anemia, unspecified Oncology Nurse 05/18/2019 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, Kacy Phelan , DO unspecified 05/18/2019 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, Oncology Nurse unspecified 03/20/2019 D64.9 Anemia, unspecified [place], MANUFACTURE SPECIALIST 03/20/2019 E61.1 Iron deficiency [place], REINALDO 03/09/2019 D64.9 Anemia, unspecified BoKacy strange, DO 03/09/2019 D64.9 Anemia, unspecified Oncology Nurse 02/10/2019 E61.1 Iron deficiency [place], MANUFACTURE SPECIALIST 02/10/2019 D64.9 Anemia, unspecified [place], MANUFACTURE SPECIALIST 01/29/2019 D64.9 Anemia, unspecified Kacy Phelan, DO 01/29/2019 D64.9 Anemia, unspecified Oncology Nurse 12/05/2018 E61.1 Iron deficiency Kacy Phelan, 12/05/2018 D64.9 Anemia, unspecified Kacy Phelan DO Plan of Treatment Future Appointment(s):06/22/2019 3:00 pm - Oncology Nurse at Oncology [id number] 3:30 pm - Kacy Phelan DO at Oncology [id number]/24/2019 1:00 pm - Hawa Aguirre MD at Cardiology Office Functional Status Functional Condition Comment Date Status Glasses Active Mental Status Description No Information Available Referrals Description No Information Available
--- OUTSIDE RECORDS SUMMARY | 2019-07-03 14:52 | XMS REPORT | Continuity of Care Document ---
:1940 External Reference #:[id number] Author Name Hawa Aguirre MD Address [address] [place] [address] Care Team Providers Name Role Phone Nick Morel MD - Family Care Team Information House Coordinator [phone] Medicine Kristin Pastor MD - Orthopaedic Care Team Information House Coordinator Surgery Kacy Colby RPAC - Medical Care Team Information House Coordinator [phone] Problems Active Problems Provider Date Screening for [...] DO Onset: 11/25/2018 Long-term current use of Lisa PhelantDO Onset: 11/25/2018 anticoagulant Iron deficiency Kacy Phelan [...] + D3 1 by mouth 60tabs Unknown [id number] every day Tablets Latanoprost 1 drop each eye Unknown 0.005% Solution at night Solifenacin Succinate 1 by mouth Unknown 5mg Tablets every day Refresh use as directed Unknown 1.4-0.6% Solution Acetaminophen ER take one tablet Unknown 650mg Tablets ER by mouth every 4-6 hours as needed for pain Medications Administered in Office Medication SIG Qnty Indications Ordering Provider Date Methylprednisolone acetate Salguero, Delilah SAditi, 05/09/2015 (Depomedrol) 80mg injection RPAC Injection Immunizations Description No Information Available Vital Signs Date Vital Result Comment 06/24/2019 1:10pm BP Systolic Sitting Left Arm 126 mmHg BP Diastolic Sitting Left Arm 62 mmHg Heart Rate 63 /min Respiratory Rate 18 /min Weight 161.00 lb O2 % BldC Oximetry 91 % Ora 06/01/2019 4:13pm BP Systolic 124 mmHg BP Diastolic 68 mmHg Body Temperature 97.9 F Heart Rate 74 /min Respiratory Rate 18 /min Weight 159.25 lb Pain Level 0 O2 % BldC Oximetry 98 % Results Test Acquired Date Facility Test Result H/L Range Note CBC 06/22/2019 [facility] White Blood 6.6 K/uL Normal 3.1-10.7 1 W/Automated [address] [place] [address] [phone] Red Blood Count 3.82 M/uL Low 3.90-5.40 [...] 40.4-72.8 Lymph % 12.2 % Low 20.0-42.0 Elbert % 6.3 % Normal 4.3-13.2 Eo% 2.7 % Normal 0.0-6.6 Bas% 0.3 % Normal 0.0-1.1 Immature Grans 0.3 % Normal 0.0-5.0 NRBC % 0.0 /100WBC < 10/ 100 WBC Neut# 5.17 K/uL Normal 1.8-7.0 Lymph # 0.81 K/uL Low 1.0-4.0 Elbert # 0.42 K/uL Normal 0.3-0.9 Eos # 0.18 K/uL Normal 0.0-0.5 Baso # 0.02 K/uL Normal 0.0-0.1 Immature Grans Absolute 0.02 K/uL NRBC # 0.00 K/uL Comprehensive 06/22/2019 [facility] Glucose 74 mg/dL Normal 74-106 Metabolic Panel [address] [place], [place] [id number] [phone] BUN 24 mg/dL High 7-18 Creatinine 1.1 mg/dL Normal 0.6-1.3 Glom Filtration Rate, Estimate 51 mL/min >60 If >60 mL/min >60 2 BUN/Creat 21.8 ratio Sodium 139 mmol/L Normal [...] 12-78 Alkaline Phosphatase 100 U/L Normal 45-117 Iron-Tibc-%Sat 06/22/2019 [facility] Serum Iron 72 g/dL Normal 50-170 [address] [place] [address] [phone] Total Iron Binding Capacity 296 g/dL Normal 250-450 Transferrin %Saturation 24 % Normal 12-57 Laboratory test 06/22/2019 [facility] Ferritin 83 ng/mL Normal 8-252 finding [address] [place], [place] [address] [phone] Vitamin B12 And 06/22/2019 [facility] Vitamin B12 625 pg/mL Normal 193-986 Folate [address], [place] [id number] [phone] Folic Acid > 20.0 ng/mL High 3.1-17.5 Laboratory test 06/22/2019 [facility] Vitamin D,25-Hydroxy <pending> finding [address] [place] [address] [phone] Thyroid Stim Hormone 1.34 uIU/mL Normal 0.30-4.20 Erythropoietin (Epo), Serum <pending> CBC W/Automated 05/18/2019 [facility] White Blood 7.1 K/uL Normal 3.1-10.7 [address] Count [place], [place] [id number] [phone] Red Blood Count 3.78 M/uL Low 3.90-5.40 [...] 40.4-72.8 Lymph % 12.5 % Low 20.0-42.0 Elbert % 5.8 % Normal 4.3-13.2 Eo% 3.2 % Normal 0.0-6.6 Bas% 0.6 % Normal 0.0-1.1 Immature Grans 0.3 % Normal 0.0-5.0 NRBC % 0.0 /100WBC < 10/ 100 WBC Neut# 5.52 K/uL Normal 1.8-7.0 Lymph # 0.89 K/uL Low 1.0-4.0 Elbert # 0.41 K/uL Normal 0.3-0.9 Eos # 0.23 K/uL Normal 0.0-0.5 Baso # 0.04 K/uL Normal 0.0-0.1 Immature Grans Absolute 0.02 K/uL NRBC # 0.00 K/uL Iron-Tibc-%Sat 05/18/2019 [facility] Serum Iron 78 g/dL Normal 50-[address] [place] [address] [phone] Total Iron Binding Capacity 298 g/dL Normal 250-450 Transferrin %Saturation 26 % Normal 12-57 Laboratory test 05/18/2019 [facility] Ferritin 195 ng/mL Normal 8-252 finding [address] [address] [phone] Vitamin B12 And 05/18/2019 [facility] Vitamin B12 723 pg/mL Normal 193-986 Folate [address] [place] [address] [phone] Folic Acid > 20.0 ng/mL High 3.1-17.5 Slide Review 03/09/2019 [facility] Slide Review (SEE NOTE) 4, 5 [address] [place] [address] [phone] Vitamin B12 03/09/2019 [facility] Vitamin B12 589 pg/mL Normal 193-98 And Folate [address] [place] [address] [phone] Folic Acid > 20.0 ng/mL High 3.1-17.5 Laboratory test 03/09/2019 [facility] Ferritin 223 ng/mL Normal 8-252 finding [address] [place] [address] [phone] Iron-Tibc-%Sat 03/09/2019 [facility] Serum Iron 75 g/dL Normal 50-170 [address] [place] [address] [phone] Total Iron Binding Capacity 290 g/dL Normal 250-450 Transferrin %Saturation 26 % Normal 12-57 CBC W/Automated 03/09/2019 [facility] White Blood 7.2 K/uL Normal 3.1-10.7 Diff [address] [place] [address] [phone] Red Blood Count 3.96 M/uL Normal 3.90-5.40 [...] 40.4-72.8 Lymph % 15.6 % Low 20.0-42.0 Elbert % 8.0 % Normal 4.3-13.2 Eo% 2.4 % Normal 0.0-6.6 Bas% 0.4 % Normal 0.0-1.1 Immature Grans 0.4 % Normal 0.0-5.0 NRBC % 0.0 /100WBC < 10/ 100 WBC Neut# 5.24 K/uL Normal 1.8-7.0 Lymph # 1.12 K/uL Normal 1.0-4.0 Elbert # 0.57 K/uL Normal 0.3-0.9 Eos # 0.17 K/uL Normal 0.0-0.5 Baso # 0.03 K/uL Normal 0.0-0.1 Immature Grans Absolute 0.03 K/uL NRBC # 0.00 K/uL CBC W/Automated 01/29/2019 [facility] White Blood 5.2 K/uL Normal 3.1-10.[address] [place] [address] [phone] Red Blood Count 4.09 M/uL Normal 3.90-5.40 [...] 40.4-72.8 Lymph % 14.6 % Low 20.0-42.0 Elbert % 7.8 % Normal 4.3-13.2 Eo% 2.7 % Normal 0.0-6.6 Bas% 0.4 % Normal 0.0-1.1 Immature Grans 0.6 % Normal 0.0-5.0 NRBC % 0.0 /100WBC < 10/ 100 WBC Neut# 3.81 K/uL Normal 1.8-7.0 Lymph # 0.75 K/uL Low 1.0-4.0 Elbert # 0.40 K/uL Normal 0.3-0.9 Eos # 0.14 K/uL Normal 0.0-0.5 Baso # 0.02 K/uL Normal 0.0-0.1 Immature Grans Absolute 0.03 K/uL NRBC # 0.00 K/uL Iron-Tibc-%Sat 01/29/2019 [facility] Serum Iron 42 g/dL Low 50-170 [address] [place] [address] [phone] Total Iron Binding Capacity 329 g/dL Normal 250-450 Transferrin %Saturation 13 % Normal 12-57 Laboratory test 01/29/2019 [facility] Ferritin 69 ng/mL Normal 8-252 finding [address] [place] [address] [phone] Vitamin B12 And 01/29/2019 [facility] Vitamin B12 794 pg/mL Normal 193-986 Folate [address] [place] [address] [phone] Folic Acid > 20.0 ng/mL High 3.1-17.5 Slide Review 01/29/2019 [facility] Slide Review . 6 [address] [place] [address] [phone] RBC Morphology Only 01/29/2019 [facility] Hypochromia 0-1+ [address] [place] [address] [phone] Poikilocytosis 0-1+ Anisocytosis 0-1+ Microcytosis 0-1+ Macrocytosis 0-1+ Elliptocytes 0-1+ Comment POSSIBLE SIDEROC <SEE NOTE> 7 1 D64.9 E61.1 E53.9 2 Note: Persistent reduction for 3 months or more in an eGFR <60 mL/min/1.73 m2 defines CKD. Patients with eGFR values >/=60 mL/min/1.73 m2 may also have CKD if evidence of persistent proteinuria is present. The original MDRD equation for estimated GFR is not valid for patients less than 18 years of age. Additional information may be found at www.kdoqi.org. 3 D64.9 M35.9 4 D64.9 5 Instrument flagged sample for slide review. Less than 10% Bands seen, no other immature WBC's seen. RBC morphology essentially normal. Platelet estimate = NORMAL 6 Instrument flagged sample for slide review. Less than 10% Bands seen, no other immature WBC's seen. 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 I10 Essential (primary) hypertension E78.2 Mixed hyperlipidemia Office Visit 06/01/2019 4:00p Oncology Office [place] D64.9 Kacy Pickering DO unspecified E61.1 Iron deficiency E53.9 Vitamin B deficiency, unspecified Office Visit 03/20/2019 4:00p Infusion [facility] D64.9 Anemia, [place] B., 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 unspecified E61.1 Iron deficiency Office Visit 02/10/2019 3:30p Oncology Office [place] Marina E61.1 Iron deficiency B., 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 D64.9 Anemia, unspecified Assessments Date Code Description Provider 06/24/2019 I48.0 Paroxysmal atrial fibrillation Hawa Aguirre MD 06/24/2019 I63.40 Cerebral infarction due to embolism of Hawa Aguirre MD unspecified cerebral artery 06/24/2019 I10 Essential (primary) hypertension Hawa Aguirre MD 06/24/2019 E78.2 Mixed hyperlipidemia Hawa Aguirre MD 06/22/2019 D64.9 Anemia, unspecified Kacy Phelan DO 06/22/2019 D64.9 Anemia, unspecified Oncology Nurse 06/22/2019 E61.1 Iron deficiency BothienalHamidaKcay, DO 06/22/2019 E61.1 Iron deficiency Oncology Nurse 06/22/2019 E53.9 Vitamin B deficiency, unspecified Boufal, Kacy, DO 06/22/2019 E53.9 Vitamin B deficiency, unspecified Oncology Nurse 06/01/2019 D64.9 Anemia, unspecified Boufal, Kacy, DO 06/01/2019 E61.1 Iron deficiency Boufal, Kacy, DO 06/01/2019 E53.9 Vitamin B deficiency, unspecified Boufal, Kacy, DO 05/18/2019 D64.9 Anemia, unspecified Boufal, Kacy, DO 05/18/2019 D64.9 Anemia, unspecified Oncology Nurse 05/18/2019 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, Hamida Phelanaret , DO unspecified 05/18/2019 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, Oncology Nurse unspecified 03/20/2019 D64.9 Anemia, unspecified [place] Marina, 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 03/20/2019 E61.1 Iron deficiency [place] 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, 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 03/09/2019 D64.9 Anemia, unspecified Boufal, Kacy, DO 03/09/2019 D64.9 Anemia, unspecified Oncology Nurse 02/10/2019 E61.1 Iron deficiency [place] 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
[2019-07-03 14:59] VITALS: BP 129/68
--- NOTE | 2019-07-03 15:01 | UC ---
[facility] General HPI - HPI Summary HPI Summary: Pleasant 78 yo female c/o urinary freq /urg / dysuria since yesterday no fever / chills no sob /cp / palpitations no GI upset no abd pain, except urinary sx. no back pain - History of Current Complaint Chief Complaint: UCGU Stated Complaint: URINARY Time Seen by Provider: 07/03/19 14:51 Hx Obtained From: Patient Pain Intensity: 0 - Allergy/Home Medications Allergies/Adverse Reactions: Allergies Allergy/AdvReac Type Severity Reaction Status Date / Time morphine AdvReac Severe Dizziness, Verified 07/03/19 14:52 nausea environmental Allergy Severe sinus Uncoded 07/03/19 14:52 congestion PMH/Surg Hx/FS Hx/Imm Hx Previously Healthy: No - see below, also see meditech - Surgical History Surgical History: Yes Surgery Procedure, Year, and Place: Right Shoulder Partial Replacement, 05/29/16 , [place]; Right Rotator Cuff, 01/10/16, [place]; Right Ankle Infections s/p Fusion, 2014, [place]; Left Breast Biopsy, 2013, [place]; Left Carpal Tunnel, ~2011, [place]; Left Bunionectomy with other Metatarsal Involvement; Bilateral TKA: C-Sections; T&A - Family History Known Family History: Positive: Cardiac Disease, Other - OA - Social History Alcohol Use: None Substance Use Type: None Smoking Status (MU): Never Smoked Tobacco Have You Smoked in the Last Year: No - Immunization History Most Recent Influenza Vaccination: "I have never had a flu shot." Most Recent Tetanus Shot: ~2012 Most Recent Pneumonia Vaccination: Fall 2014 Review of Systems All Other Systems Reviewed And Are Negative: Yes Constitutional: Positive: Negative Skin: Positive: Negative Eyes: Positive: Negative ENT: Positive: Negative Respiratory: Positive: Negative Cardiovascular: Positive: Negative Gastrointestinal: Positive: Negative Genitourinary: Positive: Other - see hpi Motor: Positive: Negative Neurovascular: Positive: Negative Musculoskeletal: Positive: Negative Neurological: Positive: Negative Psychological: Positive: Negative Is Patient Immunocompromised?: No Physical Exam Triage Information Reviewed: Yes Appearance: Well-Appearing - sitting up, conversing easily, Well-Nourished Vital Signs: Initial Vital Signs Temp 97.6 F 07/03/19 14:54 Pulse 92 07/03/19 14:54 Resp 16 07/03/19 14:54 BP 129/68 07/03/19 14:54 Pulse Ox 98 07/03/19 14:54 Vital Signs Reviewed: Yes Eye Exam: Normal ENT Exam: Normal Neck exam: Normal Respiratory Exam: Normal Respiratory: Positive: Chest non-tender, Lungs clear, Normal breath sounds, No respiratory distress, No accessory muscle use Cardiovascular Exam: Normal Cardiovascular: Positive: Pulses Normal, Brisk Capillary Refill Abdomen Description: Positive: Nontender - no cvat, Soft Musculoskeletal Exam: Normal - grossly nonfocal Neurological Exam: Normal - grossly nonfocal Psychological Exam: Normal - nad Skin Exam: Normal - no visible or reported rash nondiaphoretic Course/Dx - Course Course Of Treatment: Reviewed previous urine cx in [facility] most recent + E coli Reviewed urine dip, 1+ blood, + leuk est Reviewed coa / tx plan. Questions answered as posed to the best of my ability. - Diagnoses Provider Diagnosis: UTI (urinary tract infection) Discharge ED - Sign-Out/Discharge Documenting (check all that apply): Patient Departure All imaging exams completed and their final reports reviewed: No Studies - Discharge Plan Condition: Stable Disposition: HOME Prescriptions: Cefuroxime 500 MG TAB (NF) [Ceftin 500 MG TAB (NF)] 500 mg PO BID 7 Days #14 tab Phenazopyridine 200 mg (NF) [Pyridium 200 MG tab *] 200 mg PO TID PRN #15 tab PRN Reason: Pain - Moderate Patient Education Materials: Urinary Tract Infection in Women (DC) Referrals: Kacy Colby PA [Primary Care Provider] - Additional Instructions: Hydrate. Follow up with your primary care physician for recheck in the next couple weeks , to make sure that the blood has resolved. Seek medical attention for worse or new problems. Urine culture has been sent. - Billing Disposition and Condition Condition: STABLE Disposition: Home
== END 2019-07-03 15:30 | disposition home or self-care (01) ==
LOC: UCCORT 14:40
DX: N39.0 Urinary tract infection, site not specified (principal); Z88.5 Allergy status to narcotic agent; Z91.09 Other allergy status, other than to drugs and biological substances
CPT/HCPCS: 81003; 87077; 87086; 87186; 99212; G0463

== ENCOUNTER 2022-06-27 08:29 | Observation (INO) ==
[~2022-06-27 08:29] MED LIST changes: +Acetaminophen IV 1 GM/100ML 1,000 MG/100 ML BAG IV ONE; +Buffered Lidocaine 1% SYRIN 1 ml INTRADERM ONE; -Buffered Lidocaine 1% SYRIN* 1 ML/SYRINGE INTRADERM ONE; +Dexamethasone IV 4 MG/ML VIAL 1 ml VIAL ONE; -Dexamethasone TAB* 4 MG PO ONE; -DiMENhydriNATE IV* 50 MG/ML VIAL IV PUSH PRN; -Famotidine IV* 10 MG/ML 2 ML (20 mg) IV ONE; -HYDROmorphone INJ1* 1 MG/ML SYRINGE IV PRN; -Lactated Ringers 1000 ML Bag* 1,000 ML IV SCH; +Lactated Ringers 1000 ml BAG 1,000 ML IV SCH; +Lidocaine 2% PF 5 ML VIAL ONE; -Naloxone* 0.4 MG/ML 1 ML VIAL IV PRN; +Ondansetron 4 mg VIAL 2 MG/ML 2 ml VIAL ONE; -Ondansetron TAB* 4 MG PO ONE; -PROCHLORPERAZINE INJ 5 MG/ML 2 ML VIAL IV PRN; +Propofol 10 MG/ML 20 ML BTL ONE; +Rocuronium 50 mg VIAL 10 mg/ml 5 ml VIAL (50 mg) ONE; +Sevoflurane BOTTLE ONE; -Vancomycin(*) 1,250 MG in NS 0.9% 250 ML* 250 ML IVPB SCH; +fentaNYL 100 mcg/2 ml 50 MCG/ML VIAL ONE; -fentaNYL* 50 MCG/ML 2 ML VIAL (100 MCG VIAL) IV PRN; -oxyCODONE/Acetamin 5/325 MG* TAB PO PRN
[2022-06-27] MEDS ORDERED: Chlorhexidine MOUTHWASH 0.12% 15 ML UDC ONE (09:03)
[2022-06-27] MEDS ORDERED: Buffered Lidocaine 1% SYRIN 1 ml ONE (09:03)
[2022-06-27] MEDS ORDERED: ceFAZolin 2 GM PREMIX 2 GM/50 ML BAG ONE (09:03)
[2022-06-27] MEDS ORDERED: Thrombin 5,000 UNITS 1 APPLIC KIT - topical use - TOPICAL ONE (09:41)
[2022-06-27] MEDS ORDERED: ceFAZolin VIAL VIAL ONE (09:41)
[2022-06-27] MEDS ORDERED: Gelfoam Sponge SIZE 100 SPONGE ONE (09:41)
[2022-06-27] MEDS ORDERED: Lidocaine 2% w EPI 1:100,000 20 ML MDV VIAL ONE (09:43)
[2022-06-27] MEDS ORDERED: Phenylephrine IV 10 MG/ML 1 ml VIAL ONE (10:37)
[2022-06-27] MEDS ORDERED: Sterile Water for Inj 10 ML ONE (10:37)
[2022-06-27] MEDS ORDERED: Glycopyrrolate IV 0.2 MG/ML 1 ML VIAL ONE (10:37)
[2022-06-27] MEDS ORDERED: Naloxone 0.4 mg VIAL 0.4 mg/ml 1 ml VIAL IV PRN (10:58)
[2022-06-27] MEDS ORDERED: Ondansetron 4 mg VIAL 2 MG/ML 2 ml VIAL IV PRN (10:58)
[2022-06-27] MEDS ORDERED: Desflurane 240 ML INH ONE (11:35)
[2022-06-27] MEDS ORDERED: Senna TAB 8.6 mg TAB PO PRN (12:19)
[2022-06-27] MEDS ORDERED: Calcium Polycarbophil 625mg TB PO PRN (12:20)
[2022-06-27] MEDS ORDERED: Lactated Ringers 1000 ml BAG 1,000 ML IV SCH (13:00)
[2022-06-27] MEDS ORDERED: fentaNYL 100 mcg/2 ml 50 MCG/ML VIAL ONE (13:12)
[2022-06-27] MEDS ORDERED: Ondansetron 4 mg VIAL 2 MG/ML 2 ml VIAL ONE (13:13)
[2022-06-27] MEDS: fentaNYL 100 mcg/2 ml 50 MCG/ML VIAL IV PRN ×4 (13:14→13:59)
[2022-06-27] MEDS: HYDROcodone/ACETAMIN 5/325 mg TAB PO PRN ×3 (15:12→21:12)
[2022-06-27] MEDS ORDERED: Carboxymethylcellulos 1% OPTH 1 AMP BOTH EYES PRN (15:29)
[2022-06-27] MEDS ORDERED: CALCIUM CARBONATE VITAMIN D3 PO SCH (18:30)
[2022-06-27] MEDS: PTO:Brimonidine 0.2% 5 ML BTL BOTH EYES SCH (19:49)
[2022-06-27] MEDS: PTO:Dorzolamide/Timolol OPTH (NF) 10 ML BOT BOTH EYES SCH (19:49)
[2022-06-27] MEDS ORDERED: PTO:Latanoprost 0.005% 2.5 ml BTL BOTH EYES SCH (21:00)
[2022-06-28] MEDS: PTO:Dorzolamide/Timolol OPTH (NF) 10 ML BOT BOTH EYES SCH (08:20)
[2022-06-28] MEDS: PTO:Brimonidine 0.2% 5 ML BTL BOTH EYES SCH (08:21)
[2022-06-28] MEDS: HYDROcodone/ACETAMIN 5/325 mg TAB PO PRN (08:21)
[2022-06-28] MEDS ORDERED: CMCS:Solifenacin 5 mg TAB (NF) PO SCH (09:00)
[2022-06-28 11:12] VITALS: BP 121/64
== END 2022-06-28 11:45 | disposition home or self-care (01) ==
LOC: SSU 08:29 → OR 08:29
PROVIDERS: ADMIT Neurological Surgery; ATTEND Neurological Surgery

== ENCOUNTER 2022-07-04 02:41 | Inpatient (IN) ==
[2022-07-04 06:07] LABS: INR 1.08 (0.88-1.18)
[2022-07-04 06:08] LABS: High Sensitivity Troponin 1 Hr 99 pg/mL (<15)
[2022-07-04 06:09] LABS: ABS Eosinophils 0.3 10^3/ul (0-0.6); ABS Lymphocytes 0.6 10^3/ul (1.0-4.8); ABS Monocytes 0.8 10^3/ul (0-0.8); ABS Neutrophils 7.2 10^3/ul (1.5-7.7); Hematocrit 32 % (35-47); Hemoglobin 10.4 g/dL (12.0-16.0); Lymphocyte % 6.9 %; Mean Corpuscular HGB Conc 33 g/dL (31-36); Mean Corpuscular Hemoglobin 31 pg (27-31); Mean Corpuscular Volume 96 fL (80-97); Mean Platelet Volume 8.2 fL (7.4-10.4); Platelet Count 363 10^3/uL (150-450); Red Blood Count 3.32 10^6 /uL (3.70-4.87); Red Cell Distribution Width 13 % (10-15)
[2022-07-04 06:28] LABS: Venous Bicarbonate HCO3 28.3 mmol/L (24-28)
[2022-07-04 06:37] LABS: Albumin 3.6 g/dL (3.2-5.2); Albumin/Globulin Ratio 1.4 (1-3); Calcium 9.1 mg/dL (8.6-10.3); Creatinine, Serum 1.14 mg/dL (0.51-0.95); Globulin 2.6 g/dL (2-4); Potassium 3.8 mmol/L (3.5-5.0); Total Bilirubin 0.4 mg/dL (0.2-1.0); Total Protein 6.2 g/dL (6.4-8.9); eGFR CKD-EPI 48.7 (>60)
[2022-07-04] MEDS: CMC:Brimonidine/Timolol 0.2%/0.5% OPTH(NF) SOL 5 ML BOTH EYES SCH ×2 (09:15→21:09)
[2022-07-04] MEDS: CMC:Solifenacin 5 mg TAB (NF) PO SCH (09:15)
[2022-07-04] MEDS ORDERED: Lactated Ringers 1000 ml BAG 1,000 ML IV SCH (10:00)
[2022-07-04 11:52] LABS: C Reactive Protein 92.22 mg/L (<8.01)
[2022-07-04 12:11] LABS: Magnesium 1.4 mg/dL (1.9-2.7)
[2022-07-04] MEDS ORDERED: Magnesium Sulf 4 GM/100 ML IV 4,000 MG/100 ML BAG IVPB ONE (12:37)
[2022-07-04] MEDS ORDERED: Potassium Chlor 20 meq TAB.ER PO ONE (14:58)
[2022-07-04 15:56] LABS: Ferritin 225.3 ng/mL (11-307)
[2022-07-05 06:23] LABS: ABS Eosinophils 0.3 10^3/ul (0-0.6); ABS Monocytes 0.7 10^3/ul (0-0.8); Eosinophil % 4.3 %; Hematocrit 30 % (35-47); Hemoglobin 9.9 g/dL (12.0-16.0); Lymphocyte % 13.8 %; Mean Corpuscular HGB Conc 34 g/dL (31-36); Mean Corpuscular Hemoglobin 32 pg (27-31); Mean Corpuscular Volume 96 fL (80-97); Platelet Count 362 10^3/uL (150-450); Red Blood Count 3.09 10^6 /uL (3.70-4.87); Red Cell Distribution Width 13 % (10-15)
[2022-07-05 06:37] LABS: Calcium 8.8 mg/dL (8.6-10.3); Potassium 4.2 mmol/L (3.5-5.0)
[2022-07-05 06:42] LABS: Creatinine, Serum 0.91 mg/dL (0.51-0.95); eGFR CKD-EPI 63.8 (>60)
[2022-07-05] MEDS: CMC:Solifenacin 5 mg TAB (NF) PO SCH (08:06)
[2022-07-05 08:07] LABS: Magnesium 1.9 mg/dL (1.9-2.7)
[2022-07-05] MEDS: CMC:Brimonidine/Timolol 0.2%/0.5% OPTH(NF) SOL 5 ML BOTH EYES SCH (08:07)
[2022-07-05] MEDS ORDERED: Regadenoson 0.4 MG/5 ML SYRINGE ONE (12:18)
[2022-07-05] MEDS ORDERED: Aminophylline 25 MG/ML VIAL ONE (12:19)
[2022-07-05 16:06] VITALS: BP 144/63
== END 2022-07-05 20:00 | disposition home or self-care (01) | DRG 948 ==
LOC: EDHOLD 02:41 → ED 02:41 → EDHOLD 10:06 → MEDTELE 10:26 → SUATTDRO 11:33
PROVIDERS: ADMIT Internal Medicine; ATTEND Internal Medicine